=== PATIENT | male | born 1965 | race Caucasian/White ===

== ENCOUNTER 2024-03-22 22:07 | Outpatient (CLI) | payer OTHER, SELFPAY | END 2024-03-22 22:08 | disposition home or self-care (01) | LOC: AMB 03-26 10:38 | PROVIDERS: Visit Provider Student in an Organized Health Care Education/Training Program | DX: M25.572 Pain in left ankle and joints of left foot (principal) | CPT/HCPCS: A0425; A0427 ==

== ENCOUNTER 2024-03-22 22:27 | Emergency (ER) | payer OTHER, SELFPAY ==
[2024-03-22 22:32] VITALS: BP 202/103; PULSE 95; RESP 16; TEMP 36.7; O2SAT 99; BMI 21.0
--- NOTE | 2024-03-22 22:43 | XR_ITS ---
Patient: SHERIN CARRILLO Facility:?[facility] Patient ID:?[id number] Site Patient ID:?[id number]. Site :?[id number] Study:?XRay-Extremity Left ANKLE-03/22/2024 10:58:18 PM Ordering Physician:VERO Final Report: INDICATION: Left ankle pain TECHNIQUE: Ankle radiograph 3 views left COMPARISON: None FINDINGS: Bone: Metallic plate ORIF of the lateral malleolus and screw fixation of the medial malleolus noted. On the lateral view, the plantar aspects of the calcaneus and midfoot are excluded. Joint: The ankle mortise joint and the visualized hindfoot joints are unremarkable in appearance. No significant ankle effusion is seen. Soft tissue: The Kager fat pad and the Achilles` tendon are normal in appearance. No radiopaque foreign bodies are seen. IMPRESSION: 1. No acute osseous injuries or abnormalities are noted. Dictated by Eric Sheth MD @ 03/22/2024 11:01:23 PM Dictated by: Eric Sheth MD @ 03/22/2024 23:01:28 Signed by:Luba Sheth MD @03/22/2024 11:01:28 PM (Electronic Signature)
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
[2024-03-22] MEDS: KETOROLAC 30 MG/ML inj IM (23:00)
[2024-03-22] MEDS: carvediloL 25 MG TABLET PO (23:09)
== END 2024-03-22 23:16 | disposition home or self-care (01) ==
PROVIDERS: Emergency Provider Student in an Organized Health Care Education/Training Program
DX: M25.552 Pain in left hip (principal); G89.29 Other chronic pain
CPT/HCPCS: 73610; 96372; 99282; 99283; A9270; J1885

== ENCOUNTER 2024-03-23 05:38 | Outpatient (CLI) | payer OTHER, SELFPAY | END 2024-03-23 05:39 | disposition home or self-care (01) | LOC: AMB 03-26 11:08 | PROVIDERS: Visit Provider Family Medicine | DX: R07.89 Other chest pain (principal) | CPT/HCPCS: A0425; A0429 ==

== ENCOUNTER 2024-03-23 06:04 | Emergency (ER) | payer OTHER, SELFPAY ==
[2024-03-23 06:25] VITALS: BP 168/100; PULSE 68; RESP 20; TEMP 36.7; O2SAT 97; BMI 23.8
--- NOTE | 2024-03-23 06:50 | XR_ITS ---
Patient: SHERIN CARRILLO Facility:?[facility] Patient ID:?[id number] Site Patient ID:?[id number] Site :?[id number] Study:?XRay-Hip Left -03/23/2024 7:08:05 AM Ordering Physician:BREANA Final Report: Indication: Left hip pain Technique: An AP view of the pelvis was acquired as well as AP and lateral views of the left hip Comparison: None Findings: Bones: Alignment is normal. No fractures or bone lesions. Joint spaces: Unremarkable. Soft tissues: Unremarkable. Impression: Normal plain film examination of the pelvis and of the left hip Dictated by Homer Santos MD @ 03/23/2024 7:13:28 AM Signed by:?Homer Santos MD @03/23/2024 7:13:28 AM (Electronic Signature)
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
[2024-03-23 07:28] VITALS: BP 169/102; PULSE 77; RESP 18; O2SAT 97
[2024-03-23] MEDS: ACETAMINOPHEN 500 MG TABLET 1000 MG PO (07:32)
[2024-03-23] MEDS: KETOROLAC 10 MG TABLET PO (07:33)
== END 2024-03-23 07:43 | disposition home or self-care (01) ==
PROVIDERS: Emergency Provider Family Medicine
DX: M25.552 Pain in left hip (principal); G89.4 Chronic pain syndrome
CPT/HCPCS: 73502; 99283; A9270

== ENCOUNTER 2024-10-03 19:56 | Outpatient (CLI) | payer MEDICARE, SELFPAY ==
--- OUTSIDE RECORDS SUMMARY | 2024-10-08 02:10 | XMS_ITS | Referral Summary ---
Author Organization [facility] Address [address] [place] [address] Phone Care Team Providers Care Steamer Blocker Name Role Phone Unavailable Primary Care Provider Unavailabl e Source Comments [employer] is fully rolled out on [employer] Last update 04/29/09.[facility] Encounters Date Type Department Care Team Description 10/04/2024 Documentation Only Unspecified Department [place] Unknown, Provider 10/04/2024 Documentation Only Unspecified Department [place] Unknown, Provider 10/04/2024 Travel 10/04/2024 1:01 AM TECHNOLOGY LEAD - 10/04/2024 7:45 AM [facility] Emergency [facility] Emergency Department [address] [place] [address] Roxy Mak MD Fall, initial encounter Discharge [...] Mild Pain. 30 tablet 10/04/2024 7:05 AM TECHNOLOGY LEAD 4 Active ibuprofen (MOTRIN;ADVIL) 600 mg oral tablet Take 1 tablet (600 mg) by mouth 4 times daily as needed for Pain. 30 tablet 10/04/2024 7:05 AM TECHNOLOGY LEAD 4 Active cephalexin (KEFLEX) 500 mg oral capsule Take 1 capsule (500 mg) by mouth 3 times daily for 7 days. 21 capsule 4 10/11/20 24 Active oxyCODONE (ROXICODONE) 5 mg oral tablet Take 1 tablet (5 mg) by mouth every 4 hours as needed for Pain. 5 tablet 10/04/2024 7:05 AM TECHNOLOGY LEAD 4 10/07/20 24 cephalexin (KEFLEX) 500 mg oral capsule Take 1 capsule (500 mg) by mouth 3 times daily for 7 days. 21 capsule 4 10/04/20 24 Discontinued Social History Tobacco Use Types Packs/Day Years Used Date Smoking Tobacco: Never Assessed Sex and Gender Information Value Date Recorded Sex Assigned at Not on file Legal Sex Male 8:12 AM TECHNOLOGY LEAD Gender Identity Not on file Sexual Orientation Not on file Last Filed Vital Signs Vital Sign Reading Time Taken Comments Blood Pressure 161/96 10/04/2024 6:26 AM TECHNOLOGY LEAD Pulse 83 10/04/2024 6:26 AM TECHNOLOGY LEAD Temperature 36.9 ??C (98.4 ??F) 10/04/2024 1:07 AM CS T Respiratory Rate 18 10/04/2024 6:26 AM TECHNOLOGY LEAD Oxygen Saturation 94% 10/04/2024 6:26 AM TECHNOLOGY LEAD Inhaled Oxygen Concentration - - Weight - - Height - - Body Mass Index - - Plan of Treatment Not on file Procedures Procedure Name Priority Date/Time Associated Diagnosis Comments EXTERNAL MED REC-IMAGING 10/05/2024 7:09 AM TECHNOLOGY LEAD EXTERNAL MED REC-IMAGING 10/05/2024 7:[address] OUTSIDE READ HEAD/FACIAL BONES Routine 10/04/2024 2:[address] OUTSIDE READ HEAD/FACIAL BONES Routine 10/04/2024 2:11 AM TECHNOLOGY LEAD PC LAB CBC W/DIFF & PLT STAT 10/04/2024 2:01 AM TECHNOLOGY LEAD PC ELECTROLYTES PANEL STAT 10/04/2024 2:01 AM TECHNOLOGY LEAD MAGNESIUM Routine 10/04/2024 2:00 AM TECHNOLOGY LEAD EXTRA TUBE - DARK GREEN Routine 10/04/2024 2:00 AM TECHNOLOGY LEAD EXTRA TUBE - BLUE Routine 10/04/2024 2:0 0 AM TECHNOLOGY LEAD TC LAB BLOOD DRAW BY VENIPUNCTURE Routine 10/04/2024 2:00 AM TECHNOLOGY LEAD from Last 3 Months Results * EXTERNAL MED REC-IMAGING (10/05/2024 7:09 AM TECHNOLOGY LEAD) Only the most recent of2 resultswithin the time period is included. Anatomical Region Laterality Modality Other Narrative 10/05/2024 7:09 AM TECHNOLOGY LEAD Ordered by an unspecified provider. us Provider Unknown RAD CT BODY Final Result * CT OUTSIDE READ HEAD/FACIAL BONES (10/04/2024 2:11 AM TECHNOLOGY LEAD) Only the most recent of2 resultswithin the time period is included. Anatomical Region Laterality Modality Skull Computed Tomogra phy 10/04/2024 3:02 AM TECHNOLOGY LEAD Impressions 10/04/2024 8:12 AM TECHNOLOGY LEAD Impression: 1. No acute intracranial abnormality. 2. [...] Resident: Lety Cuadra Narrative 10/04/2024 8:12 AM TECHNOLOGY LEAD Indication: ??Patient transferred from [facility] due to Trauma. ??No initial report accompanied the patient and/or Dr. ?MAAME MAK requested an interpretation by me. Technique: ??CT scan of the head done on 10/04/2024 without IV contrast. ??3 mm axial and coronal reconstructions reviewed in soft tissue and bone windows, per the local institution's scanning protocols, which may differ from the [facility] trauma protocols. Findings: Chronic encephalomalacia involving the [...] MD - 10/04/2024 Indication: Patient transferred from [facility] due to Trauma.No initial report accompanied the patient and/or Dr. ROXY MAKrequested an interpretation by me. Technique: CT scan of the head done on 10/04/2024 without IV contrast. 3mm axial and coronal reconstructions reviewed in soft tissue and bonewindows, per the local institution's scanning protocols, which may differfrom the [facility] trauma protocols. Findings: Chronic encephalomalacia involving the [...] ED CHEMISTRY LABS(NA,K,CL,CO2,GLU,CREAT,CA-IONIZED,ANION GAP) (10/04/2024 2:01 AM TECHNOLOGY LEAD) Chloride 106 92 - 108 mmol/L [facility] AnGap 10 8 - 16 mmol/L [facility] Glucose 93 70 - 100 mg/dL [facility] ICA, Actual 4.63 4.40 - 5.20 mg/dL [facility] ICA, pH Corrected 4.63 4.40 - 5.20 mg/dL [facility] Creatinine 1.13 0.70 - 1.25 mg/dL [facility] BICARB 28(H) 22 - 26 mEq/L [facility] eGFR (2020 CKD-EPI) 75 >=60 ml/min/1.7 3m2 [facility] Comment: The estimated glomerular filtration rate (eGFR) was calculated using the CKD-EPI 2020 creatinine equation, which does not include race as a factor. This equation is validated in individuals 18 years of age and older, and eGFR is normalized to a body surface area of 1.73m^2. Sodium 144 135 - 148 mmol/L [facility] Potassium 2.8(AA) 3.5 - 5.3 mmol/L [facility] Comment:Critical Result Low Blood 10/04/2024 2:01 AM TECHNOLOGY LEAD 10/04/2024 2:21 AM TECHNOLOGY LEAD Narrative [facility] - 10/04/2024 2:12 PM TECHNOLOGY LEAD Patient Discharged 10/04/2024 07:12:09 TECHNOLOGY LEAD us Roxy Mak MD LABORATORY Edited Result - Final [facility] [address] [address] * CBC WITH PLTS/AUTO DIFF (10/04/2024 2:01 AM TECHNOLOGY LEAD) WBC 9.96 4.00 - 10.00 k/cmm [facility] RBC 4.76 4.60 - 6.00 m/cmm [facility] Hgb 14.7 13.1 - 17.5 g/dL [facility] Hematocrit 42.0 40.0 - 51.0 % [facility] MCV 88.2 80.0 - 100.0 fL [facility] MCH 30.9 25.0 - 32.0 pg [facility] MCHC 35.0 31.0 - 36.0 g/dL [facility] RDW 13.8 11.5 - 14.5 % [facility] Plt 200 150 - 400 k/cmm [facility] MPV 10.0 6.5 - 12.5 fL [facility] Automated Abs Neutrophil 5.05 1.70 - 6.50 k/cmm [facility] Comment:Preliminary ANC, Fin al Result to Follow Abs Immature Granulocyte 0.02 0.00 - 0.09 k/cmm [facility] Comment:The Immature Granulo cyte Absolute count contains metamyelocytes and myelocytes. Abs Neutrophil 5.05 1.70 - 6.50 k/cmm [facility] Abs Lymphocyte 3.78 0.80 - 4.00 k/cmm [facility] Abs Monocyte 0.64 0.20 - 1.00 k/cmm [facility] Abs Eosinophil 0.39 0.00 - 0.60 k/cmm [facility] Abs Basophil 0.08 0.00 - 0.20 k/cmm [facility] Blood 10/04/2024 2:01 AM TECHNOLOGY LEAD 10/04/2024 2:35 AM TECHNOLOGY LEAD us Roxy Mak MD LABORATORY Edited Result - Final Performing Organization Address [facility] de Phone Number [address] [address] * EXTRA TUBE - DARK GREEN (10/04/2024 2:00 AM TECHNOLOGY LEAD) DARK GREEN TUBE Stored [facility] Comment:Dark Green tubes (Li thium Heparin) are stored in the lab for 1 day from the collection date. Blood 10/04/2024 2:00 AM TECHNOLOGY LEAD 10/04/2024 2:20 AM TECHNOLOGY LEAD us Roxy Mak MD LABORATORY Final Result Performing Organization Address [facility] de Phone Number [facility] [address] [address] * EXTRA TUBE - LIGHT GREEN (10/04/2024 2:00 AM TECHNOLOGY LEAD) LIGHT GREEN TUBE Stored [facility] Comment:Green tubes ([place] Heparin) are stored in the lab for 3 days from the collection date. Blood 10/04/2024 2:00 AM TECHNOLOGY LEAD 10/04/2024 2:20 AM TECHNOLOGY LEAD us Roxy Mak MD LABORATORY Final Result Performing Organization Address [facility] de Phone Number [address] [address] * EXTRA TUBE - BLUE (10/04/2024 2:00 AM TECHNOLOGY LEAD) BLUE TUBE [facility] Comment:Blue top(Sodium citr ate) tubes are kept for 3 days from the collection date. Blood 10/04/2024 2:00 AM TECHNOLOGY LEAD 10/04/2024 2:20 AM TECHNOLOGY LEAD us Roxy Mak MD LABORATORY Final Result Performing Organization Address City/[facility]/ZIP Co de Phone Number [facility] [address] [address] * MAGNESIUM (10/04/2024 2:00 AM TECHNOLOGY LEAD) Magnesium 2.3 1.6 - 2.6 mg/dL [facility] Blood 10/04/2024 2:00 AM TECHNOLOGY LEAD 10/04/2024 4:04 AM TECHNOLOGY LEAD Roxy Mak MD LABORATORY Final Result [facility] [address] [address] from Last 3 Months
--- OUTSIDE RECORDS SUMMARY | 2024-10-08 02:10 | XMS_ITS | Clinical Summary ---
Author Organization [facility] Address [address] [address] Phone Care Team Providers Care Lockstitch Waistband Setter Name Role Phone Unavailable Primary Care Provider Unavailabl e Source Comments [employer] is fully rolled out on [employer]. Last update 04/29/[email or web address] Allergies No known active allergies Medications * Be aware that medications may not be up to date as of this document. Always verify current medications with patient. acetaminophen (TYLENOL) 500 mg oral tablet Take 1 tablet (500 mg) by mouth every 4 hours as needed for Mild Pain. 30 tablet 10/04/2024 7:05 AM FELTER TENNIS BALLS 4 Active ibuprofen (MOTRIN;ADVIL) 600 mg oral tablet Take 1 tablet (600 mg) by mouth 4 times daily as needed for Pain. 30 tablet 10/04/2024 7:05 AM FELTER TENNIS BALLS 4 Active cephalexin (KEFLEX) 500 mg oral capsule Take 1 capsule (500 mg) by mouth 3 times daily for 7 days. 21 capsule 4 10/11/20 24 Active oxyCODONE (ROXICODONE) 5 mg oral tablet Take 1 tablet (5 mg) by mouth every 4 hours as needed for Pain. 5 tablet 10/04/2024 7:05 AM FELTER TENNIS BALLS 4 10/07/20 24 cephalexin (KEFLEX) 500 mg oral capsule Take 1 capsule (500 mg) by mouth 3 times daily for 7 days. 21 capsule 4 10/04/20 24 Discontinued Encounters Date Type Department Care Team Description 10/04/2024 1:01 AM FELTER TENNIS BALLS - 10/04/2024 7:45 AM [facility] Emergency [facility] Emergency Department [address] [facility] [address] [place] [address] Chest Pain Coordinator, Roxy R, MD Fall, initial encounter Discharge [...] on file Legal Sex Male 8:12 AM FELTER TENNIS BALLS Gender Identity Not on file Sexual Orientation Not on file Last Filed Vital Signs Vital Sign Reading Time Taken Comments Blood Pressure 161/96 10/04/2024 6:26 AM FELTER TENNIS BALLS Pulse 83 10/04/2024 6:26 AM FELTER TENNIS BALLS Temperature 36.9 ??C (98.4 ??F) 10/04/2024 1:07 AM CS T Respiratory Rate 18 10/04/2024 6:26 AM FELTER TENNIS BALLS Oxygen Saturation 94% 10/04/2024 6:26 AM FELTER TENNIS BALLS Inhaled Oxygen Concentration - - Weight - [...] Comments EXTERNAL MED REC-IMAGING 10/05/2024 7:09 AM FELTER TENNIS BALLS EXTERNAL MED REC-IMAGING 10/05/2024 7:[address] OUTSIDE READ HEAD/FACIAL BONES Routine 10/04/2024 2:[address]S [address] OUTSIDE READ HEAD/FACIAL BONES Routine 10/04/2024 2:11 AM FELTER TENNIS BALLS PC LAB CBC W/DIFF & PLT STAT 10/04/2024 2:01 AM FELTER TENNIS BALLS PC ELECTROLYTES PANEL STAT 10/04/2024 2:01 AM FELTER TENNIS BALLS MAGNESIUM Routine 10/04/2024 2:00 AM FELTER TENNIS BALLS EXTRA TUBE - DARK GREEN Routine 10/04/2024 2:00 AM FELTER TENNIS BALLS EXTRA TUBE - BLUE Routine 10/04/2024 2:0 0 AM FELTER TENNIS BALLS TC LAB BLOOD DRAW BY VENIPUNCTURE Routine 10/04/2024 2:00 AM FELTER TENNIS BALLS from Last 3 Months Results * EXTERNAL MED REC-IMAGING (10/05/2024 7:09 AM FELTER TENNIS BALLS) Only the most recent of2 resultswithin the time period is included. Anatomical Region Laterality Modality Other Narrative 10/05/2024 7:09 AM FELTER TENNIS BALLS Ordered by an unspecified provider. us Provider Unknown RAD CT BODY Final Result * CT OUTSIDE READ HEAD/FACIAL BONES (10/04/2024 2:11 AM FELTER TENNIS BALLS) Only the most recent of2 resultswithin the time period is included. Anatomical Region Laterality Modality Skull Computed Tomogra phy 10/04/2024 3:02 AM FELTER TENNIS BALLS Impressions 10/04/2024 8:12 AM FELTER TENNIS BALLS Impression: 1. No acute intracranial abnormality. 2. [...] Baltazar Resident: Lety Cuadra 10/04/2024 8:12 AM FELTER TENNIS BALLS Indication: ??Patient transferred from [facility] due to Trauma. ??No initial report accompanied the patient and/or Dr. ??ROXY HARMON requested an interpretation by me. Technique: ??CT scan of the head done on 10/04/2024 without IV contrast. ??3 mm axial and coronal reconstructions reviewed in soft tissue and bone windows, per the local institution's scanning protocols, which may differ from the [facility] trauma protocols. Findings: Chronic [...] MD - 10/04/2024 Indication: Patient transferred from [facility] due to Trauma.No initial report accompanied the patient and/or Dr. ROXY HARMONrequested an interpretation by me. Technique: CT scan of the head done on 10/04/2024 without IV contrast. 3mm axial and coronal reconstructions reviewed in soft tissue and bonewindows, per the local institution's scanning protocols, which may differfrom the [facility] trauma protocols. Findings: Chronic [...] ED CHEMISTRY LABS(NA,K,CL,CO2,GLU,CREAT,CA-IONIZED,ANION GAP) (10/04/2024 2:01 AM FELTER TENNIS BALLS) Chloride 106 92 - 108 mmol/L [facility] AnGap 10 8 - 16 mmol/L [facility] Glucose 93 70 - 100 mg/dL [facility] ICA, Actual 4.63 4.40 - 5.20 mg/dL [facility] ICA, pH Corrected 4.63 4.40 - 5.20 mg/dL [facility] Creatinine 1.13 0.70 - 1.25 mg/dL [facility] BICARB 28(H) 22 - 26 mEq/L [facility] eGFR (2020 CKD-EPI) 75 >=60 ml/min/1.7 3m2 [facility] Comment: The estimated glomerular filtration rate (eGFR) was calculated using the CKD-EPI 2020 creatinine equation, which does not include race as a factor. This equation is validated in individuals 18 years of age and older, and eGFR is normalized to a body surface area of 1.73m^2. Sodium 144 135 - 148 mmol/L [facility] Potassium 2.8(AA) 3.5 - 5.3 mmol/L [facility] Comment:Critical Result Low Blood 10/04/2024 2:01 AM FELTER TENNIS BALLS 10/04/2024 2:21 AM FELTER TENNIS [employer]ALLS Narrative [facility] - 10/04/2024 2:12 PM FELTER TENNIS BALLS Patient Discharged 10/04/2024 07:12:09 FELTER TENN[employer]ALLS Roxy Harmon MD LABORATORY Edited Result - Final [facility] [address] [place] [address] * CBC WITH PLTS/AUTO DIFF (10/04/2024 2:01 AM FELTER TENNIS BALLS) Pathologist [facility] WBC 9.96 4.00 - 10.00 k/cmm [facility] RBC 4.76 4.60 - 6.00 m/cmm [facility] Hgb 14.7 13.1 - 17.5 g/dL [facility] Hematocrit 42.0 40.0 - 51.0 % [facility] MCV 88.2 80.0 - 100.0 fL [facility] MCH 30.9 25.0 - 32.0 pg [facility] MCHC 35.0 31.0 - 36.0 g/dL [facility] RDW 13.8 11.5 - 14.5 % [facility] Plt 200 150 - 400 k/cmm [facility] MPV 10.0 6.5 - 12.5 fL [facility] Automated Abs Neutrophil 5.05 1.70 - 6.50 k/cmm [facility] Comment:Preliminary ANC, Fin al Result to Follow Abs Immature Granulocyte 0.02 0.00 - 0.09 k/cmm [facility] Comment:The Immature Granulo cyte Absolute count contains metamyelocytes and myelocytes. Abs Neutrophil 5.05 1.70 - 6.50 k/cmm [facility] Abs Lymphocyte 3.78 0.80 - 4.00 k/cmm [facility] Abs Monocyte 0.64 0.20 - 1.00 k/cmm [facility] Abs Eosinophil 0.39 0.00 - 0.60 k/cmm [facility] Abs Basophil 0.08 0.00 - 0.20 k/cmm [facility] Blood 10/04/2024 2:01 AM F[employer]ENN[employer]ALLS 10/04/2024 2:35 AM F[employer] TENN[employer]ALLS Roxy Harmon MD LABORATORY Edited Result - Final [facility] [address] [place] [address] * EXTRA TUBE - DARK GREEN (10/04/2024 2:00 AM FELTER TENNIS BALLS) DARK GREEN TUBE Stored [facility] Comment:Dark Green tubes (Li thium Heparin) are stored in the lab for 1 day from the collection date. Blood 10/04/2024 2:00 AM FELTER TENNIS [employer]ALLS 10/04/2024 2:20 AM FELTER TENNIS BALLS us Roxy Harmon MD LABORATORY Final Result Performing Organization Address [facility] de Phone Number [facility] [address] [address] * EXTRA TUBE - LIGHT GREEN (10/04/2024 2:00 AM FELTER TENNIS BALL[employer]) LIGHT GREEN TUBE Stored [facility] Comment:Green tubes ([place] Heparin) are stored in the lab for 3 days from the collection date. Blood 10/04/2024 2:00 AM FELTER TENNIS [employer]ALLS 10/04/2024 2:20 AM FEL[employer] TENN[employer]ALLS us Roxy Harmon MD LABORATORY Final Result Performing Organization Address [facility] de Phone Number [facility] [address] [address] * EXTRA TUBE - BLUE (10/04/2024 2:00 AM FELTER TENNIS BALLS) BLUE TUBE [facility] Comment:Blue top(Sodium citr ate) tubes are kept for 3 days from the collection date. Blood 10/04/2024 2:00 AM [employer] 10/04/2024 2:20 AM FELTER TENN[employer] BALLS us Roxy Harmon MD LABORATORY Final Result Performing Organization Address [facility] de Phone Number [facility] [address] [address] * MAGNESIUM (10/04/2024 2:00 AM FELTER TENNIS BALLS) Magnesium 2.3 1.6 - 2.6 mg/dL [facility] Blood 10/04/2024 2:00 AM F[employer] TENN[employer]ALLS 10/04/2024 4:04 AM FELTER TENNIS BALLS us Roxy Harmon MD LABORATORY Final Result [facility] [address] [place] [address] from Last 3 Months
--- OUTSIDE RECORDS SUMMARY | 2024-10-08 02:10 | XMS_ITS | Encounter Summary ---
Author Organization [facility] Address [address] [place] [phone] Phone Care Team Providers Care Systems Lead Name Role Phone Unavailable Primary Care Provider Unavailabl e Encounter Details Date Type Department Care Team (Late st Contact Info) Description 10/04/2024 Documentation Only Unspecified Department [place] Unknown, Provider Social History Tobacco Use Types Packs/Day Years Used Date Smoking Tobacco: Never Assessed Sex and Gender Information Value Date Recorded Sex Assigned at Not on file Legal Sex Male 8:12 AM PIPELINE SUPERINTENDENT DIVISION Gender Identity Not on file Sexual Orientation Not on file documented as of this encounter Plan of Treatment Not on file documented as of this encounter Procedures Procedure Name Priority Date/Time Associated Diagnosis Comments EXTERNAL MED REC-IMAGING 10/05/2024 7:09 AM PIPELINE SUPERINTENDENT DIVISION documented in this encounter Results * EXTERNAL MED REC-IMAGING (10/05/2024 7:09 AM PIPELINE SUPERINTENDENT DIVISION) Anatomical Region Laterality Modality Other Narrative 10/05/2024 7:09 AM PIPELINE SUPERINTENDENT DIVISION Ordered by an unspecified provider. us Provider Unknown RAD CT BODY Final Result documented in this encounter Visit Diagnoses Not on filedocumented in this encounter
--- OUTSIDE RECORDS SUMMARY | 2024-10-08 02:10 | XMS_ITS | Encounter Summary ---
Author Organization [facility] Address [address] [place] [phone] Phone Care Team Providers Care Roof Shingler Name Role Phone Unavailable Primary Care Provider Unavailabl e Encounter Details Date Type Department Care Team (Late st Contact Info) Description 10/04/2024 Documentation Only Unspecified Department [place] Unknown, Provider Social History Tobacco Use Types Packs/Day Years Used Date Smoking Tobacco: Never Assessed Sex and Gender Information Value Date Recorded Sex Assigned at Not on file Legal Sex Male 8:12 AM VEGETABLE PICKER Gender Identity Not on file Sexual Orientation Not on file documented as of this encounter Plan of Treatment Not on file documented as of this encounter Procedures Procedure Name Priority Date/Time Associated Diagnosis Comments EXTERNAL MED REC-IMAGING 10/05/2024 7:09 AM VEGETABLE PICKER documented in this encounter Results * EXTERNAL MED REC-IMAGING (10/05/2024 7:09 AM VEGETABLE PICKER) Anatomical Region Laterality Modality Other Narrative 10/05/2024 7:09 AM VEGETABLE PICKER Ordered by an unspecified provider. us Provider Unknown RAD CT BODY Final Result documented in this encounter Visit Diagnoses Not on filedocumented in this encounter
--- OUTSIDE RECORDS SUMMARY | 2024-10-08 02:10 | XMS_ITS | Encounter Summary ---
Author Organization [facility] Address [address] [place] [phone] Phone Care Team Providers Care Processing Tech Name Role Phone Unavailable Primary Care Provider Unavailabl e Encounter Details Date Type Department Care Team (Latest Contact Info) Description 10/04/2024 Travel Social History Tobacco Use Types Packs/Day Years Used Date Smoking Tobacco: Never Assessed Sex and Gender Information Value Date Recorded Sex Assigned at Not on file Legal Sex Male 8:12 AM SOCIAL WORK ASSOCIATE Gender Identity Not on file Sexual Orientation Not on file documented as of this encounter Plan of Treatment Not on file documented as of this encounter Visit Diagnoses Not on filedocumented in this encounter
--- OUTSIDE RECORDS SUMMARY | 2024-10-08 02:10 | XMS_ITS | Encounter Summary ---
Author Organization [facility] Address [address] [facility] [place] [address] Phone Care Team Providers Care Bankruptcy Attorney Name Role Phone Unavailable Primary Care Provider Unavailabl e Reason for Visit * Reason Comments Eye Trauma Encounter Details Date Type Department Care Team (Late st Contact Info) Description 10/04/2024 1:01 AM ELECTRIC SCOOP OPERATOR - 10/04/2024 7:45 AM ELECTRIC SCOOP OPERATOR Emergency [facility] Emergency Department [address] [facility] [address] [place], [place] [id number] Roxy Mak MD [address] [facility] [address] [place] [address] Fall, initial encounter Discharge Disposition: Discharged to home or self care Social History Tobacco Use Types Packs/Day Years Used Date Smoking Tobacco: Never Assessed Sex and Gender Information Value Date Recorded Sex Assigned at Not on file Legal Sex Male 8:12 AM ELECTRIC SCOOP OPERATOR Gender Identity Not on file Sexual Orientation Not on file documented as of this encounter Last Filed Vital Signs Vital Sign Reading Time Taken Comments Blood Pressure 161/96 10/04/2024 6:26 AM ELECTRIC SCOOP OPERATOR Pulse 83 10/04/2024 6:26 AM ELECTRIC SCOOP OPERATOR Temperature 36.9 ??C (98.4 ??F) 10/04/2024 1:07 AM CS T Respiratory Rate 18 10/04/2024 6:26 AM ELECTRIC SCOOP OPERATOR Oxygen Saturation 94% 10/04/2024 6:26 AM ELECTRIC SCOOP OPERATOR Inhaled Oxygen Concentration - - Weight - - Height - - Body Mass Index - - documented in this encounter Discharge Instructions * Discharge Instructions* Sharif Mayo MD - 10/04/2024 6:35 AM ELECTRIC SCOOP OPERATOR Please take your medications as prescribed. Follow [...] worsen or if you experience new symptoms. TRIC SCOOP OPERATOR TRIC SCOOP OPERATOR documented in this encounter Medications at Time of Discharge acetaminophen (TYLENOL) 500 mg oral tablet Take 1 tablet (500 mg) by mouth every 4 hours as needed for Mild Pain. 30 tablet 10/04/2024 7:05 AM ELECTRIC SCOOP OPERATOR 10/04/2024 ibuprofen (MOTRIN;ADVIL) 600 mg oral tablet Take 1 tablet (600 mg) by mouth 4 times daily as needed for Pain. 30 tablet 10/04/2024 7:05 AM ELECTRIC SCOOP OPERATOR 10/04/2024 cephalexin (KEFLEX) 500 mg oral capsule Take 1 capsule (500 mg) by mouth 3 times daily for 7 days. 21 capsule 10/04/2024 10/11/2024 oxyCODONE (ROXICODONE) 5 mg oral tablet Take 1 tablet (5 mg) by mouth every 4 hours as needed for Pain. 5 tablet 10/04/2024 7:05 AM ELECTRIC SCOOP OPERATOR 10/04/2024 10/07/2024 documented as of this encounter ED Notes * Mary Troncoso - 10/04/2024 1:36 AM CST Pt transferred from [facility]. R wrist fx reduced in [place]. Pos for periorbital fx. Pt received 50 mcg of fentanyl given at 0100. TRIC SCOOP OPERATOR * Sharif Mayo MD - 10/04/2024 1:14 [...] care. We did complete a basic lab work including a chemistry and CBC. We also gave the patient analgesia with 10 of Oxy as well as 40 mill equivalents of potassium to replete his hypokalemia. Magnesium [...] have gone undetected. Please contact me via [employer] staff message if you note any errors requiring clarification. TRIC SCOOP OPERATOR * Lexus Fung RN - 10/04/2024 12:03 AM CST Incoming report from JORDAN June at [facility] Pt was crossing the street. The [...] Oxy, 250 fluids. Will have 18 RAC TRIC SCOOP OPERATOR documented in this encounter Miscellaneous Notes * [...] of services. Signed: Roxy Mak MD, 01:17112/04/2023 TRIC SCOOP OPERATOR documented in this encounter Plan of Treatment Not on file documented as of this encounter Procedures Procedure Name Priority Date/Time Associated Diagnosis Comments CT OUTSIDE READ HEAD/FACIAL BONES Routine 10/04/2024 2:11 AM ELECTRIC SCOOP OPERATOR CT OUTSIDE READ HEAD/FACIAL BONES Routine 10/04/2024 2:11 AM ELECTRIC SCOOP OPERATOR PC ELECTROLYTES PANEL STAT 10/04/2024 2:01 AM ELECTRIC SCOOP OPERATOR PC LAB CBC W/DIFF & PLT STAT 10/04/2024 2:01 AM ELECTRIC SCOOP OPERATOR EXTRA TUBE - DARK GREEN Routine 10/04/2024 2:00 AM ELECTRIC SCOOP OPERATOR TC LAB BLOOD DRAW BY VENIPUNCTURE Routine 10/04/2024 2:00 AM ELECTRIC SCOOP OPERATOR EXTRA TUBE - BLUE Routine 10/04/2024 2:0 0 AM ELECTRIC SCOOP OPERATOR MAGNESIUM Routine 10/04/2024 2:00 AM ELECTRIC SCOOP OPERATOR documented in this encounter Results * CT OUTSIDE READ HEAD/FACIAL BONES (10/04/2024 2:11 AM ELECTRIC SCOOP OPERATOR) Anatomical Region Laterality Modality Skull Computed Tomogra phy 10/04/2024 3:02 AM ELECTRIC SCOOP OPERATOR Impressions 10/04/2024 8:12 AM ELECTRIC SCOOP OPERATOR Impression: 1. No acute intracranial abnormality. 2. [...] Reading Resident: Lety Cuadra 10/04/2024 8:12 AM ELECTRIC SCOOP OPERATOR Indication: ??Patient transferred from [facility] due to Trauma. ??No initial report accompanied the patient and/or Dr. ??ROXY MAK requested an interpretation by me. Technique: ??CT scan of the head done on 10/04/2024 without IV contrast. ??3 mm axial and coronal reconstructions reviewed in soft tissue and bone windows, per the local institution's scanning protocols, which may differ from the [facility] trauma protocols. Findings: Chronic encephalomalacia involving the [...] MD - 10/04/2024 Indication: Patient transferred from [facility] due to Trauma.No initial report accompanied the patient and/or Dr. ROXY MAKrequested an interpretation by me. Technique: CT scan of the head done on 10/04/2024 without IV contrast. 3mm axial and coronal reconstructions reviewed in soft tissue and bonewindows, per the local institution's scanning protocols, which may differfrom the [facility] trauma protocols. Findings: Chronic encephalomalacia involving the [...] Radiologist: Wendy Baltazar Resident: Lety Cuadra us Roxy Mak MD RAD CT NEURO Final Result * CT OUTSIDE READ HEAD/FACIAL BONES (10/04/2024 2:11 AM ELECTRIC SCOOP OPERATOR) Anatomical Region Laterality Modality Skull Computed Tomogra phy 10/04/2024 2:51 AM ELECTRIC SCOOP OPERATOR Impressions 10/04/2024 8:10 AM ELECTRIC SCOOP OPERATOR Impression: Acute depressed fractures of the right [...] Resident: Lety Cuadra Narrative 10/04/2024 8:10 AM ELECTRIC SCOOP OPERATOR Indication: ??Patient transferred from [facility] due to Trauma. ??No initial report accompanied the patient and/or Dr. ?MAAME MAK requested an interpretation by me. Technique: ??CT scan of the facial bone done on 10/04/2024 without IV contrast. ??3 mm axial and coronal reconstructions reviewed in soft tissue and bone windows, per the local institution's scanning protocols, which may differ from the [facility] trauma protocols. Findings: ??Right periorbital swelling. Minimally [...] MD - 10/04/2024 Indication: Patient transferred from [facility] due to Trauma.No initial report accompanied the patient and/or Dr. ROXY MAKrequested an interpretation by me. Technique: CT scan of the facial bone done on 10/04/2024 without IVcontrast. 3 mm axial and coronal reconstructions reviewed in soft tissueand bone windows, per the local institution's scanning protocols, whichmay differ from the [facility] trauma protocols. Findings: Right periorbital swelling. Minimally [...] CBC WITH PLTS/AUTO DIFF (10/04/2024 2:01 AM ELECTRIC SCOOP OPERATOR) WBC 9.96 4.00 - 10.00 k/cmm [facility] LAB RBC 4.76 4.60 - 6.00 m/cmm [facility] Hgb 14.7 13.1 - 17.5 g/dL [facility] Hematocrit 42.0 40.0 - 51.0 % [facility] MCV 88.2 80.0 - 100.0 fL [facility] MCH 30.9 25.0 - 32.0 pg [facility] MCHC 35.0 31.0 - 36.0 g/dL [facility] RDW 13.8 11.5 - 14.5 % [facility] Plt 200 150 - 400 k/cmm [facility] MPV 10.0 6.5 - 12.5 fL [facility] Automated Abs Neutrophil 5.05 1.70 - 6.50 k/cmm [facility] Comment:Preliminary ANC, Fin al Result to Follow Abs Immature Granulocyte 0.02 0.00 - 0.09 k/cmm [facility] Comment:The Immature Granulo cyte Absolute count contains metamyelocytes and myelocytes. Abs Neutrophil 5.05 1.70 - 6.50 k/cmm [facility] Abs Lymphocyte 3.78 0.80 - 4.00 k/cmm [facility] Abs Monocyte 0.64 0.20 - 1.00 k/cmm [facility] Abs Eosinophil 0.39 0.00 - 0.60 k/cmm [facility] Abs Basophil 0.08 0.00 - 0.20 k/cmm [facility] Blood 10/04/2024 2:01 AM ELECTRIC SCOOP OPERATOR 10/04/2024 2:35 AM ELECTRIC SCOOP OPERATOR Roxy Mak MD LABORATORY Edited Result - Final [facility] [address] [place] [address] * (ABNORMAL) ED CHEMISTRY LABS(NA,K,CL,CO2,GLU,CREAT,CA-IONIZED,ANION GAP) (10/04/2024 2:01 AM ELECTRIC SCOOP OPERATOR) Chloride 106 92 - 108 mmol/L [facility] AnGap 10 8 - 16 mmol/L [facility] Glucose 93 70 - 100 mg/dL [facility] ICA, Actual 4.63 4.40 - 5.20 mg/dL [facility] ICA, pH Corrected 4.63 4.40 - 5.20 mg/dL [facility] Creatinine 1.13 0.70 - 1.25 mg/dL [facility] BICARB 28(H) 22 - 26 mEq/L [facility] eGFR (2020 CKD-EPI) 75 >=60 ml/min/1.7 3m2 [facility] Comment: The estimated glomerular filtration rate (eGFR) was calculated using the CKD-EPI 2020 creatinine equation, which does not include race as a factor. This equation is validated in individuals 18 years of age and older, and eGFR is normalized to a body surface area of 1.73m^2. Sodium 144 135 - 148 mmol/L [facility] Potassium 2.8(AA) 3.5 - 5.3 mmol/L [facility] Comment:Critical Result Low Blood 10/04/2024 2:01 AM ELECTRIC SCOOP OPERATOR 10/04/2024 2:21 AM ELECTRIC SCOOP OPERATOR Narrative [facility] - 10/04/2024 2:12 PM ELECTRIC SCOOP OPERATOR Patient Discharged 10/04/2024 07:12:09 ELECTRIC SCOOP OPERATOR us Roxy Mak MD LABORATORY Edited Result - Final [facility] [address] [address] * MAGNESIUM (10/04/2024 2:00 AM ELECTRIC SCOOP OPERATOR) Magnesium 2.3 1.6 - 2.6 mg/dL [facility] Blood 10/04/2024 2:00 AM ELECTRIC SCOOP OPERATOR 10/04/2024 4:04 AM ELECTRIC SCOOP OPERATOR us Roxy Mak MD LABORATORY Final Result Performing Organization Address [facility] Co de Phone Number [address] [phone] * EXTRA TUBE - DARK GREEN (10/04/2024 2:00 AM ELECTRIC SCOOP OPERATOR) DARK GREEN TUBE Stored [facility] Comment:Dark Green tubes (Li thium Heparin) are stored in the lab for 1 day from the collection date. Blood 10/04/2024 2:00 AM ELECTRIC SCOOP OPERATOR 10/04/2024 2:20 AM ELECTRIC SCOOP OPERATOR us Roxy Mak MD LABORATORY Final Result Performing Organization Address [facility] de Phone Number [address] [address] * EXTRA TUBE - BLUE (10/04/2024 2:00 AM ELECTRIC SCOOP OPERATOR) BLUE TUBE [facility] Comment:Blue top(Sodium citr ate) tubes are kept for 3 days from the collection date. Blood 10/04/2024 2:00 AM ELECTRIC SCOOP OPERATOR 10/04/2024 2:20 AM ELECTRIC SCOOP OPERATOR us Roxy Mak MD LABORATORY Final Result Performing Organization Address [facility] de Phone Number [address] [address] * EXTRA TUBE - LIGHT GREEN (10/04/2024 2:00 AM ELECTRIC SCOOP OPERATOR) LIGHT GREEN TUBE Stored [facility] Comment:Green tubes ([place] Heparin) are stored in the lab for 3 days from the collection date. Blood 10/04/2024 2:00 AM ELECTRIC SCOOP OPERATOR 10/04/2024 2:20 AM ELECTRIC SCOOP OPERATOR us Roxy Mak MD LABORATORY Final Result Performing Organization Address [facility] Co de Phone Number [address] [phone] documented in this encounter Visit Diagnoses Diagnosis [...] 10/04/24 at 0150 Given 10/04/2024 1:52 AM ELECTRIC SCOOP OPERATOR 10 mg oxyCODONE (ROXICODONE) tablet 10 mg 10 mg, Oral, ONE TIME, 1 dose, On 10/04/24 at 0445 Given 10/04/2024 4:47 AM ELECTRIC SCOOP OPERATOR 10 mg potassium chloride (K-ALISSA) powder 40 mEq 40 mEq, Oral, ONE TIME, 1 dose, On 10/04/24 at 0250 Given 10/04/2024 2:52 AM ELECTRIC SCOOP OPERATOR 40 mEq documented in this encounter Active and Recently Administered Medications Times are shown in ELECTRIC SCOOP OPERATOR. Scheduled Medication Order 10/02/2024 10/03/2024 10/04/2024 oxyCODONE [...]
== END 2024-10-03 19:57 | disposition home or self-care (01) ==
LOC: AMB 10-08 02:07
PROVIDERS: Visit Provider Emergency Medicine
DX: S09.90XA Unspecified injury of head, initial encounter (principal); S69.91XA Unspecified injury of right wrist, hand and finger(s), initial encounter; W01.0XXA Fall on same level from slipping, tripping and stumbling without subsequent striking against object, initial encounter; Y93.89 Activity, other specified; Y92.414 Local residential or business street as the place of occurrence of the external cause
CPT/HCPCS: A0425; A0427

== ENCOUNTER 2024-10-03 20:26 | Emergency (ER) | payer MEDICARE, SELFPAY ==
[2024-10-03] VITALS (25 sets, daily range): BP systolic 121–185; BP diastolic 84–105; PULSE 76–102; RESP 18; TEMP 36.1; O2SAT 96–100; BMI 19.9
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
--- NOTE | 2024-10-03 20:31 | ED.GENADULT ---
HPI - General Adult General Time Seen by Provider: 20:30 <Tiera Cisneros MD - Last Filed: 10/03/24 23:51> Date Seen: 10/03/24 <Tiera Cisneros MD - Last Filed: 10/03/24 23:51> Chief complaint: Fall/Minor Trauma <Tiera Cisneros MD - Last Filed: 10/03/24 23:51> Stated complaint: Head trauma <Tiera Cisneros MD - Last Filed: 10/03/24 23:51> Time Seen by Provider: 10/03/24 20:30 <Tiera Cisneros MD - Last Filed: 10/03/24 23:51> Source: patient, EMS and RN notes reviewed <Tiera Cisneros MD - Last Filed: 10/03/24 23:51> Mode of arrival: EMS <Tiera Cisneros MD - Last Filed: 10/03/24 23:51> Limitations: no limitations <Tiera Cisneros MD - Last Filed: 10/03/24 23:51> History of Present Illness HPI narrative: This 59-year-old male was brought in by [facility] after a fall in the intersection. Patient states he was trying to cross the intersection quickly in town, has some right residual leg issues from a prior hemorrhagic stroke. The light was changing, he was trying to hurry to get out of the way and his leg caught and he fell forward. He braced with an outstretched hand, has deformed right wrist now. He denies any numbness tingling in the fingers. He did hit his right face above the eye along the eyebrow area causing a laceration, initially blood but has stopped. He states his right wrist is painful. He denies any headache, no visual changes. There is definite pain along the site of the lacerations in where he hit his face in the right eyebrow area above the right eye. He absolutely has no headache, feels like he is at his baseline. There was no loss of consciousness. He denies any neck or back pain. They did give him 25 mcg of fentanyl in route but then subsequently found the patient to be on Suboxone. Nothing else is injured, no difficulty breathing, no chest pain, no abdominal pain, no pain in his legs, no left arm pain or issues. He feels like his jaws opening and closing normally, no nasal pain, no pain in his cheeks. Patient tells me he is on Suboxone, used to be on Percocet and was addicted. Instead of buying Percocet off the street and getting inadvertent exposure to mixed drugs and risking his life, he went on Suboxone. He is post be on a cholesterol medicine in on probably a blood pressure medicine but he has not taken them. Nursing staff did look up his tetanus, last given 05/08/2017, thus up-to-date. <Tiera Cisneros MD - Last Filed: 10/03/24 23:51> Related Data Home medications: Home Medications ?Medication ?Instructions ?Recorded ?Confirmed atorvastatin 20 mg tablet 20 mg PO DAILY 03/23/24 05/21/24 carvedilol 25 mg tablet 25 mg PO BID 03/23/24 05/21/24 dextroamphetamine-amphetamine 20 1 tab PO BID 03/23/24 05/21/24 mg tablet lisinopril 10 mg tablet 10 mg PO DAILY 03/23/24 05/21/24 mirtazapine 30 mg tablet 30 mg PO QPM 03/23/24 05/21/24 modafinil 200 mg tablet 200 mg PO DAILY 03/23/24 05/21/24 omeprazole 20 mg capsule,delayed 20 mg PO DAILY 03/23/24 05/21/24 release paroxetine HCl 40 mg tablet 40 mg PO DAILY 03/23/24 05/21/24 tizanidine 2 mg tablet 2 mg PO 3XD 03/23/24 05/21/24 Previous Rx's ?Medication ?Instructions ?Recorded acetaminophen 650 mg 1,300 mg (2 x 650 mg) PO Q8H PRN 03/23/24 tablet,extended release (Arthritis #150 tabs Pain Relief (acetaminophen) ER) ibuprofen 600 mg tablet 600 mg PO BID PRN #20 tabs 03/23/24 <Tiera Cisneros MD - Last Filed: 10/03/24 23:51> Allergies/adverse reactions: Allergies Allergy/AdvReac Type Severity Reaction Status Date / Time indomethacin AdvReac Verified 05/21/24 14:44 <Tiera Cisneros MD - Last Filed: 10/03/24 23:51> Review of Systems Status of ROS: Reports: 6 or more systems reviewed and unremarkable except as noted in History and below <Tiera Cisneros MD - Last Filed: 10/03/24 23:51> [facility] Social History: Social History Smoking Status: Current every day smoker What tobacco products do you use: cigarettes Second hand tobacco smoke exposure: Yes How often do you have a drink containing alcohol: never AUDIT-C Alcohol total score: 0 Non-prescribed substance use: denies use <Tiera Cisneros MD - Last Filed: 10/03/24 23:51> Exam Const: Vital Signs, click to edit/add: Vital Signs - 24 hr 10/03/24 20:31 10/03/24 20:54 10/03/24 21:00 Temperature 97.0 F L Pulse Rate 97 91 Pulse Rate [Left P ulse Oximeter] 102 H Respiratory Rate 18 Blood Pressure Blood Pressure [Le ft Upper Arm] 185/103 H Pulse Oximetry 96 96 96 Oxygen Delivery Me thod Room Air 10/03/24 21:15 10/03/24 21:30 10/03/24 21:31 Temperature Pulse Rate 91 87 86 Pulse Rate [Left P ulse Oximeter] Respiratory Rate Blood Pressure 161/104 H Blood Pressure [Le ft Upper Arm] Pulse Oximetry 97 96 99 Oxygen Delivery Me thod 10/03/24 21:34 10/03/24 21:36 10/03/24 21:41 Temperature Pulse Rate 92 90 89 Pulse Rate [Left P ulse Oximeter] Respiratory Rate Blood Pressure 160/104 H 143/92 H 138/90 H Blood Pressure [Le ft Upper Arm] Pulse Oximetry 100 96 98 Oxygen Delivery Me thod 10/03/24 21:45 10/03/24 21:47 10/03/24 21:51 Temperature Pulse Rate 82 83 82 Pulse Rate [Left P ulse Oximeter] Respiratory Rate Blood Pressure 121/84 149/101 H Blood Pressure [Le ft Upper Arm] Pulse Oximetry 100 99 98 Oxygen Delivery Me thod 10/03/24 22:00 10/03/24 22:01 10/03/24 22:13 Temperature Pulse Rate 79 78 Pulse Rate [Left P ulse Oximeter] Respiratory Rate Blood Pressure 161/98 H Blood Pressure [Le ft Upper Arm] Pulse Oximetry 100 97 97 Oxygen Delivery Me thod 10/03/24 22:13 10/03/24 22:15 10/03/24 22:17 Temperature Pulse Rate 83 81 Pulse Rate [Left P ulse Oximeter] Respiratory Rate Blood Pressure 168/103 H Blood Pressure [Le ft Upper Arm] Pulse Oximetry 97 99 Oxygen Delivery Me thod Room Air 10/03/24 22:33 10/03/24 22:47 10/03/24 23:01 Temperature Pulse Rate 85 Pulse Rate [Left P ulse Oximeter] Respiratory Rate Blood Pressure 161/105 H 157/103 H Blood Pressure [Le ft Upper Arm] Pulse Oximetry 98 Oxygen Delivery Me thod 10/03/24 23:17 10/03/24 23:32 Temperature Pulse Rate Pulse Rate [Left P ulse Oximeter] Respiratory Rate Blood Pressure 151/95 H 153/105 H Blood Pressure [Le ft Upper Arm] Pulse Oximetry Oxygen Delivery Me thod On arrival patient is a 59-year-old male brought in by EMS. He is alert, interactive, no apparent distress. He has a bandage over his right forehead. There is obvious right wrist deformity. Pupils are equal round reactive, sclera clear. Scalp is atraumatic. He can open and close his mouth, notes no jaw tenderness, oropharynx without any traumatic change. Nose is normal, no tenderness, cheeks are nontender, no traumatic change. The bandage is removed from his forehead and I see 2 wounds with lacerations, 1 just above the eyebrow in the middle portion, when that involves the lateral portion of the eyebrow itself, this 1 appears stellate. They are not actively bleeding. No midline tenderness of his neck, no neck masses. Lungs are clear, good air entry, wheezing crackles. CV regular rate and rhythm, no murmur. No chest wall tenderness, tenderness over his clavicles or shoulders. Left arm is normal, right wrist has swelling and deformity, he still has good peripheral pulses and neuro vasculature is intact distally. Abdomen is soft, nontender, nondistended. He has no lower extremity injuries. <Tiera R Suchomel-Santiago, MD - Last Filed: 10/03/24 23:51> Vital Signs, click to edit/add: Vital Signs - 24 hr 10/03/24 20:31 10/03/24 20:54 10/03/24 21:00 Temperature 97.0 F L Pulse Rate 97 91 Pulse Rate [Left P ulse Oximeter] 102 H Respiratory Rate 18 Blood Pressure Blood Pressure [Le ft Upper Arm] 185/103 H Pulse Oximetry 96 96 96 Oxygen Delivery Me thod Room Air 10/03/24 21:15 10/03/24 21:30 10/03/24 21:31 Temperature Pulse Rate 91 87 86 Pulse Rate [Left P ulse Oximeter] Respiratory Rate Blood Pressure 161/104 H Blood Pressure [Le ft Upper Arm] Pulse Oximetry 97 96 99 Oxygen Delivery Me thod 10/03/24 21:34 10/03/24 21:36 10/03/24 21:41 Temperature Pulse Rate 92 90 89 Pulse Rate [Left P ulse Oximeter] Respiratory Rate Blood Pressure 160/104 H 143/92 H 138/90 H Blood Pressure [Le ft Upper Arm] Pulse Oximetry 100 96 98 Oxygen Delivery Me thod 10/03/24 21:45 10/03/24 21:47 10/03/24 21:51 Temperature Pulse Rate 82 83 82 Pulse Rate [Left P ulse Oximeter] Respiratory Rate Blood Pressure 121/84 149/101 H Blood Pressure [Le ft Upper Arm] Pulse Oximetry 100 99 98 Oxygen Delivery Me thod 10/03/24 22:00 10/03/24 22:01 10/03/24 22:13 Temperature Pulse Rate 79 78 Pulse Rate [Left P ulse Oximeter] Respiratory Rate Blood Pressure 161/98 H Blood Pressure [Le ft Upper Arm] Pulse Oximetry 100 97 97 Oxygen Delivery Me thod 10/03/24 22:13 10/03/24 22:15 10/03/24 22:17 Temperature Pulse Rate 83 81 Pulse Rate [Left P ulse Oximeter] Respiratory Rate Blood Pressure 168/103 H Blood Pressure [Le ft Upper Arm] Pulse Oximetry 97 99 Oxygen Delivery Me thod Room Air 10/03/24 22:33 10/03/24 22:47 10/03/24 23:01 Temperature Pulse Rate 85 Pulse Rate [Left P ulse Oximeter] Respiratory Rate Blood Pressure 161/105 H 157/103 H Blood Pressure [Le ft Upper Arm] Pulse Oximetry 98 Oxygen Delivery Me thod 10/03/24 23:17 10/03/24 23:32 Temperature Pulse Rate Pulse Rate [Left P ulse Oximeter] Respiratory Rate Blood Pressure 151/95 H 153/105 H Blood Pressure [Le ft Upper Arm] Pulse Oximetry Oxygen Delivery Me thod <Tiera Evans MD - Last Filed: 10/03/24 21:46> Documenting provider has reviewed patient's vital signs: yes <Tiera Cisnreos MD - Last Filed: 10/03/24 23:51> Course Course ED Course: I provided procedural sedation for this patient for his reduction. Patient denies any history of reaction anesthesia. Has artist consultant indomethacin. Patient does smoke a pack cigarettes per day. Denies history of COPD or obstructive sleep apnea. Does have a history of narcolepsy. We discussed risks and benefits of the procedure including the need for intubation. Patient wished to proceed. A total of 100 mL of propofol was used for adequate sedation. Patient woke up without any complications. <Tiera Evans MD - Last Filed: 10/03/24 21:46> Reevaluation(s) Time of Reevaluation #1: 22:10 <Tiera Cisneros MD - Last Filed: 10/03/24 23:51> Reevaluation #1: Patient is having some throbbing in his wrist area, he can still feel is fingers, is also complaining of pain in that supraorbital ridge, maybe worsening. I did discuss with him that I do think we should consider doing the head CT and facial imaging. I would feel much more comfortable knowing that we had ruled out any underlying significant traumatic injury. He does concede and agree to do the imaging. We also discussed pain management. He is wondering if he can have some pain medicines. Reviewed with him that I had planned on talking to him about that. My thought is to have him hold his Suboxone, will send him with oxycodone and then he can take Tylenol 1000 mg 3 times a day. When he is able to he can transition to just the Tylenol and go back on his Suboxone. I do think he is going to need increased pain management and thus will give him some oxycodone and Tylenol now. <Tiera Cisneros MD - Last Filed: 10/03/24 23:51> Time of Reevaluation #2: 23:44 <Tiera Cisneros MD - Last Filed: 10/03/24 23:51> Reevaluation #2: I have updated patient regarding his facial fractures on the CT. He has no evidence of any visual entrapment, vision is normal. He understands that he will be transfer to [facility] [place] for definitive care as we do not have that specialty care here. <Tiera Cisneros MD - Last Filed: 10/03/24 23:51> Consultations Consultation #1: Have reviewed with Orthopedics. They are happy with the post reduction. He will follow up outpatient with them in clinic this week. <Tiera Cisneros MD - Last Filed: 10/03/24 23:51> Time: 22:20 <Tiera Cisneros MD - Last Filed: 10/03/24 23:51> Consultation #2: Patient's facial CT images are showing periorbital fractures, fracture of zygomatic arch. I have contacted [facility] [place], spoke with Dr. Harmon. Patient will be transferred to [facility] [place] for definitive care of his injuries. <Tiera Cisneros MD - Last Filed: 10/03/24 23:51> Time: 23:34 <Tiera Cisneros MD - Last Filed: 10/03/24 23:51> Vital Signs Vital signs: Initial Vital Signs Temperature 97.0 F L 10/03/24 20:31 Temperature Source Temporal Artery Scan 10/03/24 20:31 Pulse Rate 102 H 10/03/24 20:31 Pulse Rhythm Regular 10/03/24 20:31 Respiratory Rate 18 10/03/24 20:31 Blood Pressure 185/103 H 10/03/24 20:31 Blood Pressure Mean 130 H 10/03/24 20:31 Blood Pressure Position Semi-Fowlers 10/03/24 20:31 Pulse Oximetry 96 10/03/24 20:31 Oxygen Delivery Method Room Air 10/03/24 20:31 Vital Signs Temperature 97.0 F L 10/03/24 20:31 Pulse Rate 102 H 10/03/24 20:31 Respiratory Rate 18 10/03/24 20:31 Blood Pressure 185/103 H 10/03/24 20:31 Pulse Oximetry 96 10/03/24 20:31 Oxygen Delivery Method Room Air 10/03/24 20:31 Temperature 97.0 F L 10/03/24 20:31 Pulse Rate 85 10/03/24 22:33 Respiratory Rate 18 10/03/24 20:31 Blood Pressure 153/105 H 10/03/24 23:32 Pulse Oximetry 98 10/03/24 22:33 Oxygen Delivery Method Room Air 10/03/24 22:13 <Tiera Cisneros MD - Last Filed: 10/03/24 23:51> Initial Vital Signs Temperature 97.0 F L 10/03/24 20:31 Temperature Source Temporal Artery Scan 10/03/24 20:31 Pulse Rate 102 H 10/03/24 20:31 Pulse Rhythm Regular 10/03/24 20:31 Respiratory Rate 18 10/03/24 20:31 Blood Pressure 185/103 H 10/03/24 20:31 Blood Pressure Mean 130 H 10/03/24 20:31 Blood Pressure Position Semi-Fowlers 10/03/24 20:31 Pulse Oximetry 96 10/03/24 20:31 Oxygen Delivery Method Room Air 10/03/24 20:31 Vital Signs Temperature 97.0 F L 10/03/24 20:31 Pulse Rate 102 H 10/03/24 20:31 Respiratory Rate 18 10/03/24 20:31 Blood Pressure 185/103 H 10/03/24 20:31 Pulse Oximetry 96 10/03/24 20:31 Oxygen Delivery Method Room Air 10/03/24 20:31 Temperature 97.0 F L 10/03/24 20:31 Pulse Rate 85 10/03/24 22:33 Respiratory Rate 18 10/03/24 20:31 Blood Pressure 153/105 H 10/03/24 23:32 Pulse Oximetry 98 10/03/24 22:33 Oxygen Delivery Method Room Air 10/03/24 22:13 <Tiera Evans MD - Last Filed: 10/03/24 21:46> Medications Administered Medications: Discontinued Medications Generic Name Dose Route Start Last Admin Trade Name Freq PRN Reason Stop Dose Admin Acetaminophen 1,000 mg 10/03/24 22:12 10/03/24 22:34 Acetaminophen 500 Mg Tablet PO 10/03/24 22:13 1,000 mg ONCE ONE Administration Sodium Chloride 250 mls @ 250 mls/hr 10/03/24 21:50 10/03/24 22:50 0.9 % Sodium Chloride 250 Ml IV 10/03/24 22:49 Infused .Q1H ONE Infusion Oxycodone HCl 5 mg 10/03/24 22:12 10/03/24 22:35 Oxycodone 5 Mg Tablet PO 10/03/24 22:13 5 mg ONCE ONE Administration Propofol 200 mg 10/03/24 21:20 10/03/24 21:48 Propofol 10 Mg/Ml Inj IVP 10/03/24 21:21 100 mg ONCE ONE Administration <Tiera Cisneros MD - Last Filed: 10/03/24 23:51> Discontinued Medications Generic Name Dose Route Start Last Admin Trade Name Kamaljitq PRN Reason Stop Dose Admin Acetaminophen 1,000 mg 10/03/24 22:12 10/03/24 22:34 Acetaminophen 500 Mg Tablet PO 10/03/24 22:13 1,000 mg ONCE ONE Administration Sodium Chloride 250 mls @ 250 mls/hr 10/03/24 21:50 10/03/24 22:50 0.9 % Sodium Chloride 250 Ml IV 10/03/24 22:49 Infused .Q1H ONE Infusion Oxycodone HCl 5 mg 10/03/24 22:12 10/03/24 22:35 Oxycodone 5 Mg Tablet PO 10/03/24 22:13 5 mg ONCE ONE Administration Propofol 200 mg 10/03/24 21:20 10/03/24 21:48 Propofol 10 Mg/Ml Inj IVP 10/03/24 21:21 100 mg ONCE ONE Administration <Tiera Evans MD - Last Filed: 10/03/24 21:46> Medical Decision Making MDM Narrative Medical decision making narrative: This patient is had a fall, he denies any headache, no loss of consciousness he is on baseline Suboxone but no other mood altering substances. We have discussed head imaging, he declines at this point. I will plan on cleaning and repairing his lacerations on his face. We will be getting x-rays of his right wrist to evaluate, there is most certainly a fracture here and will likely require reduction. <Tiera Cisneros MD - Last Filed: 10/03/24 23:51> Imaging Data XR right wrist: Attestation: I have reviewed the pertinent imaging results. <Tiera Cisneros MD - Last Filed: 10/03/24 23:51> My impression: Comminuted distal radius fracture with dorsal angulation a my preliminary review. This will require reduction. <Tiera Cisneros MD - Last Filed: 10/03/24 23:51> Radiologist's impression: Patient: SHERIN CARRILLO Facility:?[facility] Patient ID:?[id number] Site Patient ID:?[id number]. Site :?1965 Study:?XRay-Extremity Right WRIST 3 VIEWS-10/03/2024 9:03:16 PM Ordering Physician:Lesli Mott Final Report: Indication: Trauma. Technique: Right wrist, 3 views. Comparison: None. Findings/Impression: Bones: Acute displaced comminuted fracture of the distal radius with dorsal angulation. Associated distal ulnar/ulnar styloid fracture. Joint spaces: Associated joint effusion. Soft tissues: Associated soft tissue swelling. Dictated by Theodore Hodges MD @ 10/03/2024 9:11:51 PM (Electronic Signature) <Tiera Cisneros MD - Last Filed: 10/03/24 23:51> XR R wrist post reduction: Attestation: I have reviewed the pertinent imaging results. <Tiera Cisneros MD - Last Filed: 10/03/24 23:51> My impression: Images revisualized with portable x-ray during the reduction. There is improved positioning of the radius on my preliminary review. <Tiera Cisneros MD - Last Filed: 10/03/24 23:51> Radiologist's impression: Patient: SHERIN CARRILLO Facility:?[facility] Patient ID:?[id number] Site Patient ID:?[id number]. Site :?1965 Study:?XRay-Extremity Right WRIST 2 VIEWS-10/03/2024 9:54:43 PM Ordering Physician:Lesli Mott Final Report: Indication: Trauma. Technique: Right wrist, 2 views. Comparison: October 03, 2024. Findings/Impression: Redemonstration of previously described distal radius fracture with improved alignment. Redemonstration of previously described distal ulnar/ulnar styloid fracture. Dictated by Theodore Hodges MD @ 10/03/2024 10:06:18 PM (Electronic Signature) <Tiera Cisneros MD - Last Filed: 10/03/24 23:51> CT scan - head: Attestation: I have reviewed the pertinent imaging results. <Tiera Cisneros MD - Last Filed: 10/03/24 23:51> Radiologist's impression: Patient: SHERIN CARRILLO Facility:?[facility] Patient ID:?[id number] Site Patient ID:?[id number]. Site :?1965 Study:?CT-Head W/O-10/03/2024 10:43:12 PM Ordering Physician:Lesli Mott Final Report: INDICATION: Trauma, fall. TECHNIQUE: CT head without contrast. COMPARISON: None. FINDINGS: CSF spaces: Within normal limits for age. 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 The price-white differentiation is maintained elsewhere. No sign of mass, hemorrhage, or midline shift. Skull base and calvarium: Please refer to separate concurrent CT face regarding facial findings. Mastoid air cells are clear. No acute calvarial fracture. IMPRESSION: 1. No acute intracranial abnormality or acute calvarial fracture. 2. Multiple chronic infarcts in the left cerebral hemisphere. Please note that all CT scans at this facility use dose modulation, iterative reconstruction, and/or weight-based dosing when appropriate to reduce radiation dose to as low as reasonably achievable. Dictated by Carson Joiner MD @ 10/03/2024 10:55:12 PM (Electronic Signature) <Tiera Cisneros MD - Last Filed: 10/03/24 23:51> CT- Other: Attestation: I have reviewed the pertinent imaging results. <Tiera Cisneros MD - Last Filed: 10/03/24 23:51> Radiologist's impression: Patient: SHERIN CARRILLO Facility:?[facility] Patient ID:?[id number] Site Patient ID:?[id number]. Site :?1965 Study:?CT-Facial W/O-10/03/2024 10:43:52 PM Ordering Physician:Lesli Mott Final Report: INDICATION: Trauma, fall. TECHNIQUE: CT maxillofacial without contrast. COMPARISON: None. FINDINGS: Facial bones: Mildly comminuted mildly displaced fracture of the right maxillary sinus anterior wall also involving the right orbital floor. Mildly comminuted minimally displaced fracture of the right maxillary sinus posterior wall. Nondisplaced fracture of the right zygomatic arch. Orbits and globes: Right periorbital soft tissue swelling. Globes are intact. Trace hemorrhage and emphysema along the extraconal right orbital floor. Retrobulbar soft tissues are unremarkable. Sinuses: Small air-fluid level in the right maxillary sinus. Soft tissues: Edentulous. IMPRESSION: 1. Right maxillary sinus anterior and posterior wall fractures including involvement of the right orbital floor. 2. Nondisplaced right zygomatic arch fracture. 3. Right periorbital soft tissue swelling and trace hemorrhage and emphysema along the extraconal right orbital floor. Please note that all CT scans at this facility use dose modulation, iterative reconstruction, and/or weight-based dosing when appropriate to reduce radiation dose to as low as reasonably achievable. Dictated by Carson Joiner MD @ 10/03/2024 11:05:41 PM (Electronic Signature) <Tiera Cisneros MD - Last Filed: 10/03/24 23:51> Discharge Plan Discharge Clinical Impression: Fall Qualifiers: Encounter type: initial encounter Qualified Code(s): W19.XXXA - Unspecified fall, initial encounter Face lacerations Qualifiers: Encounter type: initial encounter Qualified Code(s): S01.81XA - Laceration without foreign body of other part of head, initial encounter Fracture of right wrist Qualifiers: Encounter type: initial encounter Fracture type: closed Qualified Code(s): S62.101A - Fracture of unspecified carpal bone, right wrist, initial encounter for closed fracture Fracture of maxillary sinus Qualifiers: Encounter type: initial encounter Fracture type: closed Qualified Code(s): S02.401A - Maxillary fracture, unspecified side, initial encounter for closed fracture Closed fracture of zygomatic arch Qualifiers: Encounter type: initial encounter Laterality: right Qualified Code(s): S02.40EA - Zygomatic fracture, right side, initial encounter for closed fracture <Tiera Cisneros MD - Last Filed: 10/03/24 23:51> Patient Disposition: [facility] <Tiera Cisneros MD - Last Filed: 10/03/24 23:51> Discharge Location: [facility] <Tiera Cisneros MD - Last Filed: 10/03/24 23:51> Condition: Stable <Tiera Cisneros MD - Last Filed: 10/03/24 23:51> Instructions: Wrist Fracture in Adults (ED), Facial Laceration (ED) <Tiera Cisneros MD - Last Filed: 10/03/24 23:51> Prescriptions: No Action carvedilol 25 mg tablet 25 mg PO BID atorvastatin 20 mg tablet 20 mg PO DAILY tizanidine 2 mg tablet 2 mg PO 3XD modafinil 200 mg tablet 200 mg PO DAILY mirtazapine 30 mg tablet 30 mg PO QPM dextroamphetamine-amphetamine 20 mg tablet 1 tab PO BID lisinopril 10 mg tablet 10 mg PO DAILY omeprazole 20 mg capsule,delayed release(DR/EC) 20 mg PO DAILY paroxetine HCl 40 mg tablet 40 mg PO DAILY acetaminophen [Arthritis Pain Relief (acetam)] 650 mg tablet extended release 1,300 mg PO Q8H PRNQty: 150 1RF ibuprofen 600 mg tablet 600 mg PO BID PRNQty: 20 0RF <Tiera Cisneros MD - Last Filed: 10/03/24 23:51> Follow Up/Referrals: Provider,Not a Local [Primary Care Provider] - <Tiera Cisneros MD - Last Filed: 10/03/24 23:51> Stand Alone Forms: [facility] Info Instructions <Tiera Cisneros MD - Last Filed: 10/03/24 23:51> Procedures Laceration Laceration 1: Pre procedure diagnosis: medial above right eyebrow laceration <Tiera Cisneros MD - Last Filed: 10/03/24 23:51> Post procedure diagnosis: Same <Tiera Cisneros MD - Last Filed: 10/03/24 23:51> Site marking: not applicable <Tiera Cisneros MD - Last Filed: 10/03/24 23:51> Name of person performing procedure: Tiera Cisneros <Tiera Cisneros MD - Last Filed: 10/03/24 23:51> Site: face <Tiera Cisneros MD - Last Filed: 10/03/24 23:51> Side (If applicable): right <Tiera Cisneros MD - Last Filed: 10/03/24 23:51> Size (cm): 1 <Tiera Cisneros MD - Last Filed: 10/03/24 23:51> Description: linear <Tiera Cisnerso MD - Last Filed: 10/03/24 23:51> Depth: simple, single layer <Tiera Cisneros MD - Last Filed: 10/03/24 23:51> Local Anesthetic: lidocaine 1% and with epi <Tiera Cisneros MD - Last Filed: 10/03/24 23:51> Amount of anesthesia used (mL): 5 (5 mL was drawn up and about 2.5 mL was used for sufficient local anesthesia of the 2 wounds.) <Tiera Cisneros MD - Last Filed: 10/03/24 23:51> Pre-repair: wound explored, irrigated extensively and deep structures intact <Tiera Cisneros MD - Last Filed: 10/03/24 23:51> Skin layer closed with: other (Ethilon) <Tiera Cisneros MD - Last Filed: 10/03/24 23:51> Size (cm): 4-0 <Tiera Cisneros MD - Last Filed: 10/03/24 23:51> Number of sutures: 3 <Tiera Cisneros MD - Last Filed: 10/03/24 23:51> Technique: simple, interrupted <Tiera Cisneros MD - Last Filed: 10/03/24 23:51> Wound cleansing: sterile water <Tiera Cisneros MD - Last Filed: 10/03/24 23:51> Estimated blood loss (if any): none <Tiera Cisneros MD - Last Filed: 10/03/24 23:51> Conclusion: patient tolerated procedure <Tiera Cisneros MD - Last Filed: 10/03/24 23:51> Laceration 2: Pre procedure diagnosis: Stellate lateral right eyebrow laceration <Tiera Cisneros MD - Last Filed: 10/03/24 23:51> Post procedure diagnosis: Same <Tiera Cisneros MD - Last Filed: 10/03/24 23:51> Site marking: not applicable <Tiera Cisneros MD - Last Filed: 10/03/24 23:51> Name of person performing procedure: Tiera Cisneros <Tiera Cisneros MD - Last Filed: 10/03/24 23:51> Site: face <Teira Cisneros MD - Last Filed: 10/03/24 23:51> Side (If applicable): right <Tiera Cisneros MD - Last Filed: 10/03/24 23:51> Size (cm): 1.25 <Tiera Cisneros MD - Last Filed: 10/03/24 23:51> Description: stellate <Tiera Cisneros MD - Last Filed: 10/03/24 23:51> Depth: simple, single layer <Tiera Cisneros MD - Last Filed: 10/03/24 23:51> Local Anesthetic: lidocaine 1% and with epi <Tiera Cisneros MD - Last Filed: 10/03/24 23:51> Amount of anesthesia used (mL): 5 (5 mL was drawn up but 2.5 mL was sufficient to provide local anesthesia for both wounds) <Tiera Cisneros MD - Last Filed: 10/03/24 23:51> Pre-repair: wound explored and irrigated extensively <Tiera Cisneros MD - Last Filed: 10/03/24 23:51> Skin layer closed with: other (Ethilon) <Tiera Cisneros MD - Last Filed: 10/03/24 23:51> Size (cm): 4-0 <Tiera Cisneros MD - Last Filed: 10/03/24 23:51> Number of sutures: 4 <Tiera Cisneros MD - Last Filed: 10/03/24 23:51> Technique: simple, interrupted <Tiera Cisneros MD - Last Filed: 10/03/24 23:51> Wound cleansing: sterile water <Tiera Cisneros MD - Last Filed: 10/03/24 23:51> Estimated blood loss (if any): none <Tiera Cisneros MD - Last Filed: 10/03/24 23:51> Conclusion: patient tolerated procedure <Tiera Cisneros MD - Last Filed: 10/03/24 23:51> Orthopedic Fracture Reduction Fracture #1: Written consent by: patient <Tiera Cisneros MD - Last Filed: 10/03/24 23:51> Time Out Performed: Yes <Tiera Cisneros MD - Last Filed: 10/03/24 23:51> Side: right <MD Demetris Guillen Last Filed: 10/03/24 23:51> Fracture location: radius <MD Demetris Guillen Last Filed: 10/03/24 23:51> Analgesia: procedural sedation <MD Demetris Guillen Last Filed: 10/03/24 23:51> Technique: direct manipulation <Tiera Cisneros MD - Last Filed: 10/03/24 23:51> Post Reduction X-rays Demonstrate: acceptable reduction <Tiera Cisneros MD - Last Filed: 10/03/24 23:51> Post-reduction neuro exam: intact <Tiera Cisneros MD - Last Filed: 10/03/24 23:51> Post-reduction vascular exam: intact <Tiera Cisneros MD - Last Filed: 10/03/24 23:51> Splint Applied: Yes (Short-arm dorsal volar splint with Ortho Glass) <Tiera Cisneros MD - Last Filed: 10/03/24 23:51> Patient Tolerated Procedure: well <Tiera Cisneros MD - Last Filed: 10/03/24 23:51>
--- NOTE | 2024-10-03 21:35 | CRLHL7_ITS ---
For Patients: As a result of the Century Cures Act, medical imaging exams and procedure reports are released immediately into your electronic medical record. You may view this report before your referring provider. If you have questions, please contact your health care provider. Indication: Trauma. Technique: Right wrist, 2 views. Comparison: October 03, 2024. Findings/Impression: Redemonstration of previously described distal radius fracture with improved alignment. Redemonstration of previously described distal ulnar/ulnar styloid fracture. Dictated by Theodore Hodges MD @ 10/03/2024 10:06:18 PM (Electronically Signed)
[2024-10-03] MEDS: PROPOFOL 10 MG/ML INJ 200 MG IVP (21:48)
[2024-10-03] MEDS: 0.9 % SODIUM CHLORIDE 250 ml 250 ML IV (21:51)
--- NOTE | 2024-10-03 22:12 | CRLHL7_ITS ---
For Patients: As a result of the Century Cures Act, medical imaging exams and procedure reports are released immediately into your electronic medical record. You may view this report before your referring provider. If you have questions, please contact your health care provider. INDICATION: Trauma, fall. TECHNIQUE: CT head without contrast. COMPARISON: None. FINDINGS: CSF spaces: Within normal limits for age. 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 The price-white differentiation is maintained elsewhere. No sign of mass, hemorrhage, or midline shift. Skull base and calvarium: Please refer to separate concurrent CT face regarding facial findings. Mastoid air cells are clear. No acute calvarial fracture. IMPRESSION: 1. No acute intracranial abnormality or acute calvarial fracture. 2. Multiple chronic infarcts in the left cerebral hemisphere. Please note that all CT scans at this facility use dose modulation, iterative reconstruction, and/or weight-based dosing when appropriate to reduce radiation dose to as low as reasonably achievable. Dictated by Carson Joiner MD @ 10/03/2024 10:55:12 PM (Electronically Signed)
--- NOTE | 2024-10-03 22:12 | CRLHL7_ITS ---
For Patients: As a result of the Century Cures Act, medical imaging exams and procedure reports are released immediately into your electronic medical record. You may view this report before your referring provider. If you have questions, please contact your health care provider. INDICATION: Trauma, fall. TECHNIQUE: CT maxillofacial without contrast. COMPARISON: None. FINDINGS: Facial bones: Mildly comminuted mildly displaced fracture of the right maxillary sinus anterior wall also involving the right orbital floor. Mildly comminuted minimally displaced fracture of the right maxillary sinus posterior wall. Nondisplaced fracture of the right zygomatic arch. Orbits and globes: Right periorbital soft tissue swelling. Globes are intact. Trace hemorrhage and emphysema along the extraconal right orbital floor. Retrobulbar soft tissues are unremarkable. Sinuses: Small air-fluid level in the right maxillary sinus. Soft tissues: Edentulous. IMPRESSION: 1. Right maxillary sinus anterior and posterior wall fractures including involvement of the right orbital floor. 2. Nondisplaced right zygomatic arch fracture. 3. Right periorbital soft tissue swelling and trace hemorrhage and emphysema along the extraconal right orbital floor. Please note that all CT scans at this facility use dose modulation, iterative reconstruction, and/or weight-based dosing when appropriate to reduce radiation dose to as low as reasonably achievable. Dictated by Carson Joiner MD @ 10/03/2024 11:05:41 PM (Electronically Signed)
[2024-10-03] MEDS: ACETAMINOPHEN 500 MG TABLET 1000 MG PO (22:34)
[2024-10-03] MEDS: OXYCODONE 5 MG TABLET PO (22:35)
[2024-10-04 00:02] VITALS: BP 156/97
== END 2024-10-04 00:13 | disposition short-term general hospital (02) ==
PROVIDERS: Emergency Provider Family Medicine
DX: S52.501A Unspecified fracture of the lower end of right radius, initial encounter for closed fracture (principal); S02.40CA Maxillary fracture, right side, initial encounter for closed fracture; S01.111A Laceration without foreign body of right eyelid and periocular area, initial encounter; W01.198A Fall on same level from slipping, tripping and stumbling with subsequent striking against other object, initial encounter; Y93.01 Activity, walking, marching and hiking; Y92.414 Local residential or business street as the place of occurrence of the external cause
CPT/HCPCS: 25605; 12013; 70450; 70486; 73100; 73110; 94761; 99156; 99285; A9270; J2704; J7050

== ENCOUNTER 2024-10-04 00:04 | Outpatient (CLI) | payer MEDICARE, SELFPAY ==
--- OUTSIDE RECORDS SUMMARY | 2024-10-09 15:58 | XMS_ITS | Referral Summary ---
Author Organization [facility] Address [address] [place] [address] Phone Care Team Providers Care Hi Teacher Name Role Phone Unavailable Primary Care Provider Unavailabl e Source Comments [employer] is fully rolled out on [facility] [employer] [facility]. Last update 04/29/09.[facility] Encounters Date Type Department Care Team Description 10/04/2024 Documentation Only Unspecified Department [place] Unknown, Provider 10/04/2024 Documentation Only Unspecified Department [place] Unknown, Provider 10/04/2024 Travel 10/04/2024 1:01 AM LIGHTING DESIGNER - 10/04/2024 7:45 AM [facility] Emergency [facility] Emergency Department [address] [place] [address] Roxy Mak MD Fall, initial encounter Discharge [...] Mild Pain. 30 tablet 10/04/2024 7:05 AM LIGHTING DESIGNER 4 Active ibuprofen (MOTRIN;ADVIL) 600 mg oral tablet Take 1 tablet (600 mg) by mouth 4 times daily as needed for Pain. 30 tablet 10/04/2024 7:05 AM LIGHTING DESIGNER 4 Active cephalexin (KEFLEX) 500 mg oral capsule Take 1 capsule (500 mg) by mouth 3 times daily for 7 days. 21 capsule 4 10/11/20 24 Active oxyCODONE (ROXICODONE) 5 mg oral tablet Take 1 tablet (5 mg) by mouth every 4 hours as needed for Pain. 5 tablet 10/04/2024 7:05 AM LIGHTING DESIGNER 4 10/07/20 24 cephalexin (KEFLEX) 500 mg oral capsule Take 1 capsule (500 mg) by mouth 3 times daily for 7 days. 21 capsule 4 10/04/20 24 Discontinued Social History Tobacco Use Types Packs/Day Years Used Date Smoking Tobacco: Never Assessed Sex and Gender Information Value Date Recorded Sex Assigned at Not on file Legal Sex Male 8:12 AM LIGHTING DESIGNER Gender Identity Not on file Sexual Orientation Not on file Last Filed Vital Signs Vital Sign Reading Time Taken Comments Blood Pressure 161/96 10/04/2024 6:26 AM LIGHTING DESIGNER Pulse 83 10/04/2024 6:26 AM LIGHTING DESIGNER Temperature 36.9 ??C (98.4 ??F) 10/04/2024 1:07 AM CS T Respiratory Rate 18 10/04/2024 6:26 AM LIGHTING DESIGNER Oxygen Saturation 94% 10/04/2024 6:26 AM LIGHTING DESIGNER Inhaled Oxygen Concentration - - Weight - - Height - - Body Mass Index - - Plan of Treatment Not on file Procedures Procedure Name Priority Date/Time Associated Diagnosis Comments EXTERNAL MED REC-IMAGING 10/05/2024 7:09 AM LIGHTING DESIGNER EXTERNAL MED REC-IMAGING 10/05/2024 7:[address] OUTSIDE READ HEAD/FACIAL BONES Routine 10/04/2024 2:[address] OUTSIDE READ HEAD/FACIAL BONES Routine 10/04/2024 2:11 AM LIGHTING DESIGNER PC LAB CBC W/DIFF & PLT STAT 10/04/2024 2:01 AM LIGHTING DESIGNER PC ELECTROLYTES PANEL STAT 10/04/2024 2:01 AM LIGHTING DESIGNER MAGNESIUM Routine 10/04/2024 2:00 AM LIGHTING DESIGNER EXTRA TUBE - DARK GREEN Routine 10/04/2024 2:00 AM LIGHTING DESIGNER EXTRA TUBE - BLUE Routine 10/04/2024 2:0 0 AM LIGHTING DESIGNER TC LAB BLOOD DRAW BY VENIPUNCTURE Routine 10/04/2024 2:00 AM LIGHTING DESIGNER from Last 3 Months Results * EXTERNAL MED REC-IMAGING (10/05/2024 7:09 AM LIGHTING DESIGNER) Only the most recent of2 resultswithin the time period is included. Anatomical Region Laterality Modality Other Narrative 10/05/2024 7:09 AM LIGHTING DESIGNER Ordered by an unspecified provider. us Provider Unknown RAD CT BODY Final Result * CT OUTSIDE READ HEAD/FACIAL BONES (10/04/2024 2:11 AM LIGHTING DESIGNER) Only the most recent of2 resultswithin the time period is included. Anatomical Region Laterality Modality Skull Computed Tomogra phy 10/04/2024 3:02 AM LIGHTING DESIGNER Impressions 10/04/2024 8:12 AM LIGHTING DESIGNER Impression: 1. No acute intracranial abnormality. 2. [...] Resident: Lety Cuadra Narrative 10/04/2024 8:12 AM LIGHTING DESIGNER Indication: ??Patient transferred from [facility] due to Trauma. ??No initial report accompanied the patient and/or Dr. ?MAAME MAK requested an interpretation by me. Technique: ??CT scan of the head done on 10/04/2024 without IV contrast. ??3 mm axial and coronal reconstructions reviewed in soft tissue and bone windows, per the local institution's scanning protocols, which may differ from the [facility] trauma protocols. Findings: Chronic encephalomalacia involving [...] MD - 10/04/2024 Indication: Patient transferred from [facility] due to Trauma.No initial report accompanied the patient and/or Dr. ROXY MAKrequested an interpretation by me. Technique: CT scan of the head done on 10/04/2024 without IV contrast. 3mm axial and coronal reconstructions reviewed in soft tissue and bonewindows, per the local institution's scanning protocols, which may differfrom the [facility] trauma protocols. Findings: Chronic encephalomalacia involving [...] ED CHEMISTRY LABS(NA,K,CL,CO2,GLU,CREAT,CA-IONIZED,ANION GAP) (10/04/2024 2:01 AM LIGHTING DESIGNER) Chloride 106 92 - 108 mmol/L [facility] AnGap 10 8 - 16 mmol/L [facility] Glucose 93 70 - 100 mg/dL [facility] ICA, Actual 4.63 4.40 - 5.20 mg/dL [facility] ICA, pH Corrected 4.63 4.40 - 5.20 mg/dL [facility] Creatinine 1.13 0.70 - 1.25 mg/dL [facility] BICARB 28(H) 22 - 26 mEq/L [facility] eGFR (2020 CKD-EPI) 75 >=60 ml/min/1.7 3m2 [facility] Comment: The estimated glomerular filtration rate (eGFR) was calculated using the CKD-EPI 2020 creatinine equation, which does not include race as a factor. This equation is validated in individuals 18 years of age and older, and eGFR is normalized to a body surface area of 1.73m^2. Sodium 144 135 - 148 mmol/L [facility] Potassium 2.8(AA) 3.5 - 5.3 mmol/L [facility] Comment:Critical Result Low Blood 10/04/2024 2:01 AM LIGHTING DESIGNER 10/04/2024 2:21 AM LIGHTING DESIGNER Narrative [facility] - 10/04/2024 2:12 PM LIGHTING DESIGNER Patient Discharged 10/04/2024 07:12:09 LIGHTING DESIGNER us Roxy Mak MD LABORATORY Edited Result - Final [facility] [address] [address] * CBC WITH PLTS/AUTO DIFF (10/04/2024 2:01 AM LIGHTING DESIGNER) WBC 9.96 4.00 - 10.00 k/cmm [facility] RBC 4.76 4.60 - 6.00 m/cmm [facility] Hgb 14.7 13.1 - 17.5 g/dL [facility] Hematocrit 42.0 40.0 - 51.0 % [facility] MCV 88.2 80.0 - 100.0 fL [facility] MCH 30.9 25.0 - 32.0 pg [facility] MCHC 35.0 31.0 - 36.0 g/dL [facility] RDW 13.8 11.5 - 14.5 % [facility] Plt 200 150 - 400 k/cmm [facility] MPV 10.0 6.5 - 12.5 fL [facility] Automated Abs Neutrophil 5.05 1.70 - 6.50 k/cmm [facility] Comment:Preliminary ANC, Fin al Result to Follow Abs Immature Granulocyte 0.02 0.00 - 0.09 k/cmm [facility] Comment:The Immature Granulo cyte Absolute count contains metamyelocytes and myelocytes. Abs Neutrophil 5.05 1.70 - 6.50 k/cmm [facility] Abs Lymphocyte 3.78 0.80 - 4.00 k/cmm [facility] Abs Monocyte 0.64 0.20 - 1.00 k/cmm [facility] Abs Eosinophil 0.39 0.00 - 0.60 k/cmm [facility] Abs Basophil 0.08 0.00 - 0.20 k/cmm [facility] Blood 10/04/2024 2:01 AM LIGHTING DESIGNER 10/04/2024 2:35 AM LIGHTING DESIGNER us Roxy Mak MD LABORATORY Edited Result - Final Performing Organization Address [facility] de Phone Number [address] [address] * EXTRA TUBE - DARK GREEN (10/04/2024 2:00 AM LIGHTING DESIGNER) DARK GREEN TUBE Stored [facility] Comment:Dark Green tubes (Li thium Heparin) are stored in the lab for 1 day from the collection date. Blood 10/04/2024 2:00 AM LIGHTING DESIGNER 10/04/2024 2:20 AM LIGHTING DESIGNER us Roxy Mak MD LABORATORY Final Result Performing Organization Address [facility] de Phone Number [facility] [address] [address] * EXTRA TUBE - LIGHT GREEN (10/04/2024 2:00 AM LIGHTING DESIGNER) LIGHT GREEN TUBE Stored [facility] Comment:Green tubes ([place] Heparin) are stored in the lab for 3 days from the collection date. Blood 10/04/2024 2:00 AM LIGHTING DESIGNER 10/04/2024 2:20 AM LIGHTING DESIGNER us Roxy Mak MD LABORATORY Final Result Performing Organization Address [facility] de Phone Number [address] [address] * EXTRA TUBE - BLUE (10/04/2024 2:00 AM LIGHTING DESIGNER) BLUE TUBE [facility] Comment:Blue top(Sodium citr ate) tubes are kept for 3 days from the collection date. Blood 10/04/2024 2:00 AM LIGHTING DESIGNER 10/04/2024 2:20 AM LIGHTING DESIGNER us Roxy Mak MD LABORATORY Final Result Performing Organization Address City/[facility]/ZIP Co de Phone Number [facility] [address] [address] * MAGNESIUM (10/04/2024 2:00 AM LIGHTING DESIGNER) Magnesium 2.3 1.6 - 2.6 mg/dL [facility] Blood 10/04/2024 2:00 AM LIGHTING DESIGNER 10/04/2024 4:04 AM LIGHTING DESIGNER Roxy Mak MD LABORATORY Final Result [facility] [address] [address] from Last 3 Months
--- OUTSIDE RECORDS SUMMARY | 2024-10-09 15:58 | XMS_ITS | Encounter Summary ---
Author Organization [facility][Note 3] Address [address] [place] [id number] Phone Care Team Providers Care Continuity Editor Name Role Phone Unavailable Primary Care Provider Unavailabl e Encounter Details Date Type Department Care Team (Latest Contact Info) Description 10/04/2024 Travel Social History Tobacco Use Types Packs/Day Years Used Date Smoking Tobacco: Never Assessed Sex and Gender Information Value Date Recorded Sex Assigned at Not on file Legal Sex Male 8:12 AM MEDICAL MALPRACTICE PARALEGAL Gender Identity Not on file Sexual Orientation Not on file documented as of this encounter Plan of Treatment Not on file documented as of this encounter Visit Diagnoses Not on filedocumented in this encounter
--- OUTSIDE RECORDS SUMMARY | 2024-10-09 15:58 | XMS_ITS | Clinical Summary ---
Author Organization [employer] Address [address] [place] [address] Phone Care Team Providers Care Cushion Maker Hand Name Role Phone Unavailable Primary Care Provider Unavailabl e Source Comments [employer] is fully rolled out on [employer]. Last update 04/29/09.[employer] Allergies No known active allergies Medications * Be aware that medications may not be up to date as of this document. Always verify current medications with patient. acetaminophen (TYLENOL) 500 mg oral tablet Take 1 tablet (500 mg) by mouth every 4 hours as needed for Mild Pain. 30 tablet 10/04/2024 7:05 AM ROOM SERVICE SERVER 4 Active ibuprofen (MOTRIN;ADVIL) 600 mg oral tablet Take 1 tablet (600 mg) by mouth 4 times daily as needed for Pain. 30 tablet 10/04/2024 7:05 AM ROOM SERVICE SERVER 4 Active cephalexin (KEFLEX) 500 mg oral capsule Take 1 capsule (500 mg) by mouth 3 times daily for 7 days. 21 capsule 4 10/11/20 24 Active oxyCODONE (ROXICODONE) 5 mg oral tablet Take 1 tablet (5 mg) by mouth every 4 hours as needed for Pain. 5 tablet 10/04/2024 7:05 AM ROOM SERVICE SERVER 4 10/07/20 24 cephalexin (KEFLEX) 500 mg oral capsule Take 1 capsule (500 mg) by mouth 3 times daily for 7 days. 21 capsule 4 10/04/20 24 Discontinued Encounters Date Type Department Care Team Description 10/04/2024 1:01 AM ROOM SERVICE SERVER - 10/04/2024 7:45 AM [facility] Emergency [facility] Emergency Department [address] [place] [address] Seam Hammerer, Roxy R, MD Fall, initial encounter Discharge [...] on file Legal Sex Male 8:12 AM ROOM SERVICE SERVER Gender Identity Not on file Sexual Orientation Not on file Last Filed Vital Signs Vital Sign Reading Time Taken Comments Blood Pressure 161/96 10/04/2024 6:26 AM ROOM SERVICE SERVER Pulse 83 10/04/2024 6:26 AM ROOM SERVICE SERVER Temperature 36.9 ??C (98.4 ??F) 10/04/2024 1:07 AM CS T Respiratory Rate 18 10/04/2024 6:26 AM ROOM SERVICE SERVER Oxygen Saturation 94% 10/04/2024 6:26 AM ROOM SERVICE SERVER Inhaled Oxygen Concentration - - Weight - [...] Comments EXTERNAL MED REC-IMAGING 10/05/2024 7:09 AM ROOM SERVICE SERVER EXTERNAL MED REC-IMAGING 10/05/2024 7:09 AM ROOM SERVICE SERVER CT OUTSIDE READ HEAD/FACIAL BONES Routine 10/04/2024 2:11 AM ROOM SERVICE SERVER CT OUTSIDE READ HEAD/FACIAL BONES Routine 10/04/2024 2:11 AM ROOM SERVICE SERVER PC LAB CBC W/DIFF & PLT STAT 10/04/2024 2:01 AM ROOM SERVICE SERVER PC ELECTROLYTES PANEL STAT 10/04/2024 2:01 AM ROOM SERVICE SERVER MAGNESIUM Routine 10/04/2024 2:00 AM ROOM SERVICE SERVER EXTRA TUBE - DARK GREEN Routine 10/04/2024 2:00 AM ROOM SERVICE SERVER EXTRA TUBE - BLUE Routine 10/04/2024 2:0 0 AM ROOM SERVICE SERVER TC LAB BLOOD DRAW BY VENIPUNCTURE Routine 10/04/2024 2:00 AM ROOM SERVICE SERVER from Last 3 Months Results * EXTERNAL MED REC-IMAGING (10/05/2024 7:09 AM ROOM SERVICE SERVER) Only the most recent of2 resultswithin the time period is included. Anatomical Region Laterality Modality Other Narrative 10/05/2024 7:09 AM ROOM SERVICE SERVER Ordered by an unspecified provider. us Provider Unknown RAD CT BODY Final Result * CT OUTSIDE READ HEAD/FACIAL BONES (10/04/2024 2:11 AM ROOM SERVICE SERVER) Only the most recent of2 resultswithin the time period is included. Anatomical Region Laterality Modality Skull Computed Tomogra phy 10/04/2024 3:02 AM ROOM SERVICE SERVER Impressions 10/04/2024 8:12 AM ROOM SERVICE SERVER Impression: 1. No acute intracranial abnormality. 2. [...] Baltazar Resident: Lety Cuadra 10/04/2024 8:12 AM ROOM SERVICE SERVER Indication: ??Patient transferred from [facility] due to Trauma. ??No initial report accompanied the patient and/or Dr. ??ROXY HARMON requested an interpretation by me. Technique: ??CT scan of the head done on 10/04/2024 without IV contrast. ??3 mm axial and coronal reconstructions reviewed in soft tissue and bone windows, per the local institution's scanning protocols, which may differ from the [facility] trauma protocols. Findings: Chronic encephalomalacia involving the [...] MD - 10/04/2024 Indication: Patient transferred from [facility] due to Trauma.No initial report accompanied the patient and/or Dr. ROXY HARMONrequested an interpretation by me. Technique: CT scan of the head done on 10/04/2024 without IV contrast. 3mm axial and coronal reconstructions reviewed in soft tissue and bonewindows, per the local institution's scanning protocols, which may differfrom the [facility] trauma protocols. Findings: Chronic encephalomalacia involving the [...] ED CHEMISTRY LABS(NA,K,CL,CO2,GLU,CREAT,CA-IONIZED,ANION GAP) (10/04/2024 2:01 AM ROOM SERVICE SERVER) Chloride 106 92 - 108 mmol/L [facility] AnGap 10 8 - 16 mmol/L [facility] Glucose 93 70 - 100 mg/dL [facility] ICA, Actual 4.63 4.40 - 5.20 mg/dL [facility] ICA, pH Corrected 4.63 4.40 - 5.20 mg/dL [facility] Creatinine 1.13 0.70 - 1.25 mg/dL [facility] BICARB 28(H) 22 - 26 mEq/L [facility] eGFR (2020 CKD-EPI) 75 >=60 ml/min/1.7 3m2 [facility] Comment: The estimated glomerular filtration rate (eGFR) was calculated using the CKD-EPI 2020 creatinine equation, which does not include race as a factor. This equation is validated in individuals 18 years of age and older, and eGFR is normalized to a body surface area of 1.73m^2. Sodium 144 135 - 148 mmol/L [facility] Potassium 2.8(AA) 3.5 - 5.3 mmol/L [facility] Comment:Critical Result Low Blood 10/04/2024 2:01 AM ROOM SERVICE SERVER 10/04/2024 2:21 AM ROOM SERVICE SERVER Narrative [facility] - 10/04/2024 2:12 PM ROOM SERVICE SERVER Patient Discharged 10/04/2024 07:12:09 ROOM SERVICE SERVER Roxy Harmon MD LABORATORY Edited Result - Final [facility] [address] [place] [address] * CBC WITH PLTS/AUTO DIFF (10/04/2024 2:01 AM ROOM SERVICE SERVER) Pathologist [facility] WBC 9.96 4.00 - 10.00 k/cmm [facility] RBC 4.76 4.60 - 6.00 m/cmm [facility] Hgb 14.7 13.1 - 17.5 g/dL [facility] Hematocrit 42.0 40.0 - 51.0 % [facility] MCV 88.2 80.0 - 100.0 fL [facility] MCH 30.9 25.0 - 32.0 pg [facility] MCHC 35.0 31.0 - 36.0 g/dL [facility] RDW 13.8 11.5 - 14.5 % [facility] Plt 200 150 - 400 k/cmm [facility] MPV 10.0 6.5 - 12.5 fL [facility] Automated Abs Neutrophil 5.05 1.70 - 6.50 k/cmm [facility] Comment:Preliminary ANC, Fin al Result to Follow Abs Immature Granulocyte 0.02 0.00 - 0.09 k/cmm [facility] Comment:The Immature Granulo cyte Absolute count contains metamyelocytes and myelocytes. Abs Neutrophil 5.05 1.70 - 6.50 k/cmm [facility] Abs Lymphocyte 3.78 0.80 - 4.00 k/cmm [facility] Abs Monocyte 0.64 0.20 - 1.00 k/cmm [facility] Abs Eosinophil 0.39 0.00 - 0.60 k/cmm [facility] Abs Basophil 0.08 0.00 - 0.20 k/cmm [facility] Blood 10/04/2024 2:01 AM ROOM SERVICE SERVER 10/04/2024 2:35 AM ROOM SERVICE SERVER Roxy Harmon MD LABORATORY Edited Result - Final [facility] [address] [place] [address] * EXTRA TUBE - DARK GREEN (10/04/2024 2:00 AM ROOM SERVICE SERVER) DARK GREEN TUBE Stored [facility] Comment:Dark Green tubes (Li thium Heparin) are stored in the lab for 1 day from the collection date. Blood 10/04/2024 2:00 AM ROOM SERVICE SERVER 10/04/2024 2:20 AM ROOM SERVICE SERVER us Roxy Harmon MD LABORATORY Final Result Performing Organization Address [facility] de Phone Number [facility] [address] [address] * EXTRA TUBE - LIGHT GREEN (10/04/2024 2:00 AM ROOM SERVICE SERVER) LIGHT GREEN TUBE Stored [facility] Comment:Green tubes ([place] Heparin) are stored in the lab for 3 days from the collection date. Blood 10/04/2024 2:00 AM ROOM SERVICE SERVER 10/04/2024 2:20 AM ROOM SERVICE SERVER us Roxy Harmon MD LABORATORY Final Result Performing Organization Address [facility] de Phone Number [facility] [address] [address] * EXTRA TUBE - BLUE (10/04/2024 2:00 AM ROOM SERVICE SERVER) BLUE TUBE [facility] Comment:Blue top(Sodium citr ate) tubes are kept for 3 days from the collection date. Blood 10/04/2024 2:00 AM ROOM SERVICE SERVER 10/04/2024 2:20 AM ROOM SERVICE SERVER us Roxy Harmon MD LABORATORY Final Result Performing Organization Address [facility] de Phone Number [facility] [address] [address] * MAGNESIUM (10/04/2024 2:00 AM ROOM SERVICE SERVER) Magnesium 2.3 1.6 - 2.6 mg/dL [facility] Blood 10/04/2024 2:00 AM ROOM SERVICE SERVER 10/04/2024 4:04 AM ROOM SERVICE SERVER us Roxy Harmon MD LABORATORY Final Result [facility] [address] [place] [address] from Last 3 Months
--- OUTSIDE RECORDS SUMMARY | 2024-10-09 15:58 | XMS_ITS | Encounter Summary ---
Author Organization [facility] Address [address] [place] [address] Phone Care Team Providers Care Plastics And Composites Inspector Name Role Phone Unavailable Primary Care Provider Unavailabl e Encounter Details Date Type Department Care Team (Late st Contact Info) Description 10/04/2024 Documentation Only Unspecified Department [place] Unknown, Provider Social History Tobacco Use Types Packs/Day Years Used Date Smoking Tobacco: Never Assessed Sex and Gender Information Value Date Recorded Sex Assigned at Not on file Legal Sex Male 8:12 AM PROGRAM INSTRUCTOR Gender Identity Not on file Sexual Orientation Not on file documented as of this encounter Plan of Treatment Not on file documented as of this encounter Procedures Procedure Name Priority Date/Time Associated Diagnosis Comments EXTERNAL MED REC-IMAGING 10/05/2024 7:09 AM PROGRAM INSTRUCTOR documented in this encounter Results * EXTERNAL MED REC-IMAGING (10/05/2024 7:09 AM PROGRAM INSTRUCTOR) Anatomical Region Laterality Modality Other Narrative 10/05/2024 7:09 AM PROGRAM INSTRUCTOR Ordered by an unspecified provider. us Provider Unknown RAD CT BODY Final Result documented in this encounter Visit Diagnoses Not on filedocumented in this encounter
--- OUTSIDE RECORDS SUMMARY | 2024-10-09 15:58 | XMS_ITS | Encounter Summary ---
Author Organization [facility] Address [address] [facility] [place] [address] Phone Care Team Providers Care Motor Rebuilder Name Role Phone Unavailable Primary Care Provider Unavailabl e Reason for Visit * Reason Comments Eye Trauma Encounter Details Date Type Department Care Team (Late st Contact Info) Description 10/04/2024 1:01 AM EXTERNAL GRINDER TENDER - 10/04/2024 7:45 AM EXTERNAL GRINDER TENDER Emergency [facility] Emergency Department [address] [facility] [address] [place], [place] [id number] Roxy Mak MD [address] [facility] [address] [place] [address] Fall, initial encounter Discharge Disposition: Discharged to home or self care Social History Tobacco Use Types Packs/Day Years Used Date Smoking Tobacco: Never Assessed Sex and Gender Information Value Date Recorded Sex Assigned at Not on file Legal Sex Male 8:12 AM EXTERNAL GRINDER TENDER Gender Identity Not on file Sexual Orientation Not on file documented as of this encounter Last Filed Vital Signs Vital Sign Reading Time Taken Comments Blood Pressure 161/96 10/04/2024 6:26 AM EXTERNAL GRINDER TENDER Pulse 83 10/04/2024 6:26 AM EXTERNAL GRINDER TENDER Temperature 36.9 ??C (98.4 ??F) 10/04/2024 1:07 AM CS T Respiratory Rate 18 10/04/2024 6:26 AM EXTERNAL GRINDER TENDER Oxygen Saturation 94% 10/04/2024 6:26 AM EXTERNAL GRINDER TENDER Inhaled Oxygen Concentration - - Weight - - Height - - Body Mass Index - - documented in this encounter Discharge Instructions * Discharge Instructions* Sharif Mayo MD - 10/04/2024 6:35 AM EXTERNAL GRINDER TENDER Please take your medications as prescribed. Follow [...] worsen or if you experience new symptoms. RNAL GRINDER TENDER RNAL GRINDER TENDER documented in this encounter Medications at Time of Discharge acetaminophen (TYLENOL) 500 mg oral tablet Take 1 tablet (500 mg) by mouth every 4 hours as needed for Mild Pain. 30 tablet 10/04/2024 7:05 AM EXTERNAL GRINDER TENDER 10/04/2024 ibuprofen (MOTRIN;ADVIL) 600 mg oral tablet Take 1 tablet (600 mg) by mouth 4 times daily as needed for Pain. 30 tablet 10/04/2024 7:05 AM EXTERNAL GRINDER TENDER 10/04/2024 cephalexin (KEFLEX) 500 mg oral capsule Take 1 capsule (500 mg) by mouth 3 times daily for 7 days. 21 capsule 10/04/2024 10/11/2024 oxyCODONE (ROXICODONE) 5 mg oral tablet Take 1 tablet (5 mg) by mouth every 4 hours as needed for Pain. 5 tablet 10/04/2024 7:05 AM EXTERNAL GRINDER TENDER 10/04/2024 10/07/2024 documented as of this encounter ED Notes * Mary Troncoso - 10/04/2024 1:36 AM CST Pt transferred from [facility]. R wrist fx reduced in [place]. Pos for periorbital fx. Pt received 50 mcg of fentanyl given at 0100. RNAL GRINDER TENDER * Sharif Mayo MD - 10/04/2024 1:14 [...] have gone undetected. Please contact me via [employer] staff message if you note any errors requiring clarification. RNAL GRINDER TENDER * Lexus Fung RN - 10/04/2024 12:03 AM CST Incoming report from JORDAN June at [facility] Pt was crossing the street. The [...] Oxy, 250 fluids. Will have 18 RAC RNAL GRINDER TENDER documented in this encounter Miscellaneous Notes * [...] of services. Signed: Roxy Mak MD, 01:17112/04/2023 RNAL GRINDER TENDER documented in this encounter Plan of Treatment Not on file documented as of this encounter Procedures Procedure Name Priority Date/Time Associated Diagnosis Comments CT OUTSIDE READ HEAD/FACIAL BONES Routine 10/04/2024 2:11 AM EXTERNAL GRINDER TENDER CT OUTSIDE READ HEAD/FACIAL BONES Routine 10/04/2024 2:11 AM EXTERNAL GRINDER TENDER PC ELECTROLYTES PANEL STAT 10/04/2024 2:01 AM EXTERNAL GRINDER TENDER PC LAB CBC W/DIFF & PLT STAT 10/04/2024 2:01 AM EXTERNAL GRINDER TENDER EXTRA TUBE - DARK GREEN Routine 10/04/2024 2:00 AM EXTERNAL GRINDER TENDER TC LAB BLOOD DRAW BY VENIPUNCTURE Routine 10/04/2024 2:00 AM EXTERNAL GRINDER TENDER EXTRA TUBE - BLUE Routine 10/04/2024 2:0 0 AM EXTERNAL GRINDER TENDER MAGNESIUM Routine 10/04/2024 2:00 AM EXTERNAL GRINDER TENDER documented in this encounter Results * CT OUTSIDE READ HEAD/FACIAL BONES (10/04/2024 2:11 AM EXTERNAL GRINDER TENDER) Anatomical Region Laterality Modality Skull Computed Tomogra phy 10/04/2024 3:02 AM EXTERNAL GRINDER TENDER Impressions 10/04/2024 8:12 AM EXTERNAL GRINDER TENDER Impression: 1. No acute intracranial abnormality. [...] Reading Resident: Lety Cuadra 10/04/2024 8:12 AM EXTERNAL GRINDER TENDER Indication: ??Patient transferred from [facility] due to Trauma. ??No initial report accompanied the patient and/or Dr. ??ROXY MAK requested an interpretation by me. Technique: ??CT scan of the head done on 10/04/2024 without IV contrast. ??3 mm axial and coronal reconstructions reviewed in soft tissue and bone windows, per the local institution's scanning protocols, which may differ from the [facility] trauma protocols. Findings: Chronic encephalomalacia involving the [...] MD - 10/04/2024 Indication: Patient transferred from [facility] due to Trauma.No initial report accompanied the patient and/or Dr. ROXY MAKrequested an interpretation by me. Technique: CT scan of the head done on 10/04/2024 without IV contrast. 3mm axial and coronal reconstructions reviewed in soft tissue and bonewindows, per the local institution's scanning protocols, which may differfrom the [facility] trauma protocols. Findings: Chronic encephalomalacia involving the [...] OUTSIDE READ HEAD/FACIAL BONES (10/04/2024 2:11 AM EXTERNAL GRINDER TENDER) Anatomical Region Laterality Modality Skull Computed Tomogra phy 10/04/2024 2:51 AM EXTERNAL GRINDER TENDER Impressions 10/04/2024 8:10 AM EXTERNAL GRINDER TENDER Impression: Acute depressed fractures of the right [...] Resident: Lety Cuadra Narrative 10/04/2024 8:10 AM EXTERNAL GRINDER TENDER Indication: ??Patient transferred from [facility] due to Trauma. ??No initial report accompanied the patient and/or Dr. ?MAAME MAK requested an interpretation by me. Technique: ??CT scan of the facial bone done on 10/04/2024 without IV contrast. ??3 mm axial and coronal reconstructions reviewed in soft tissue and bone windows, per the local institution's scanning protocols, which may differ from the [facility] trauma protocols. Findings: ??Right periorbital swelling. Minimally [...] MD - 10/04/2024 Indication: Patient transferred from [facility] due to Trauma.No initial report accompanied the patient and/or Dr. ROXY MAKrequested an interpretation by me. Technique: CT scan of the facial bone done on 10/04/2024 without IVcontrast. 3 mm axial and coronal reconstructions reviewed in soft tissueand bone windows, per the local institution's scanning protocols, whichmay differ from the [facility] trauma protocols. Findings: Right periorbital swelling. Minimally [...] as documented by the resident/fellow. Reading Radiologist: Wnedy Baltazar Reading Resident: Lety Cuadra Roxy Mak MD RAD CT NEURO Final Result * CBC WITH PLTS/AUTO DIFF (10/04/2024 2:01 AM EXTERNAL GRINDER TENDER) WBC 9.96 4.00 - 10.00 k/cmm [facility] LAB RBC 4.76 4.60 - 6.00 m/cmm [facility] LAB Hgb 14.7 13.1 - 17.5 g/dL [facility] Hematocrit 42.0 40.0 - 51.0 % [facility] MCV 88.2 80.0 - 100.0 fL [facility] MCH 30.9 25.0 - 32.0 pg [facility] MCHC 35.0 31.0 - 36.0 g/dL [facility] RDW 13.8 11.5 - 14.5 % [facility] Plt 200 150 - 400 k/cmm [facility] MPV 10.0 6.5 - 12.5 fL [facility] Automated Abs Neutrophil 5.05 1.70 - 6.50 k/cmm [facility] Comment:Preliminary ANC, Fin al Result to Follow Abs Immature Granulocyte 0.02 0.00 - 0.09 k/cmm [facility] Comment:The Immature Granulo cyte Absolute count contains metamyelocytes and myelocytes. Abs Neutrophil 5.05 1.70 - 6.50 k/cmm [facility] Abs Lymphocyte 3.78 0.80 - 4.00 k/cmm [facility] Abs Monocyte 0.64 0.20 - 1.00 k/cmm [facility] Abs Eosinophil 0.39 0.00 - 0.60 k/cmm [facility] Abs Basophil 0.08 0.00 - 0.20 k/cmm [facility] Blood 10/04/2024 2:01 AM EXTERNAL GRINDER TENDER 10/04/2024 2:35 AM EXTERNAL GRINDER TENDER Roxy Mak MD LABORATORY Edited Result - Final [facility] [address] [place] [address] * (ABNORMAL) ED CHEMISTRY LABS(NA,K,CL,CO2,GLU,CREAT,CA-IONIZED,ANION GAP) (10/04/2024 2:01 AM EXTERNAL GRINDER TENDER) Chloride 106 92 - 108 mmol/L [facility] AnGap 10 8 - 16 mmol/L [facility] Glucose 93 70 - 100 mg/dL [facility] ICA, Actual 4.63 4.40 - 5.20 mg/dL [facility] ICA, pH Corrected 4.63 4.40 - 5.20 mg/dL [facility] Creatinine 1.13 0.70 - 1.25 mg/dL [facility] BICARB 28(H) 22 - 26 mEq/L [facility] eGFR (2020 CKD-EPI) 75 >=60 ml/min/1.7 3m2 [facility] Comment: The estimated glomerular filtration rate (eGFR) was calculated using the CKD-EPI 2020 creatinine equation, which does not include race as a factor. This equation is validated in individuals 18 years of age and older, and eGFR is normalized to a body surface area of 1.73m^2. Sodium 144 135 - 148 mmol/L [facility] Potassium 2.8(AA) 3.5 - 5.3 mmol/L [facility] Comment:Critical Result Low Blood 10/04/2024 2:01 AM EXTERNAL GRINDER TENDER 10/04/2024 2:21 AM EXTERNAL GRINDER TENDER Narrative [facility] - 10/04/2024 2:12 PM EXTERNAL GRINDER TENDER Patient Discharged 10/04/2024 07:12:09 EXTERNAL GRINDER TENDER us Roxy Mak MD LABORATORY Edited Result - Final [facility] [address] [address] * MAGNESIUM (10/04/2024 2:00 AM EXTERNAL GRINDER TENDER) Magnesium 2.3 1.6 - 2.6 mg/dL [facility] Blood 10/04/2024 2:00 AM EXTERNAL GRINDER TENDER 10/04/2024 4:04 AM EXTERNAL GRINDER TENDER us Roxy Mak MD LABORATORY Final Result Performing Organization Address [facility] Co de Phone Number [address] [address] * EXTRA TUBE - DARK GREEN (10/04/2024 2:00 AM EXTERNAL GRINDER TENDER) DARK GREEN TUBE Stored [facility] LAB Comment:Dark Green tubes (Li thium Heparin) are stored in the lab for 1 day from the collection date. Blood 10/04/2024 2:00 AM EXTERNAL GRINDER TENDER 10/04/2024 2:20 AM EXTERNAL GRINDER TENDER us Roxy Mak MD LABORATORY Final Result Performing Organization Address [facility] de Phone Number [address] [address] * EXTRA TUBE - BLUE (10/04/2024 2:00 AM EXTERNAL GRINDER TENDER) BLUE TUBE [facility] Comment:Blue top(Sodium citr ate) tubes are kept for 3 days from the collection date. Blood 10/04/2024 2:00 AM EXTERNAL GRINDER TENDER 10/04/2024 2:20 AM EXTERNAL GRINDER TENDER us Roxy Mak MD LABORATORY Final Result Performing Organization Address [facility] de Phone Number [address] [address] * EXTRA TUBE - LIGHT GREEN (10/04/2024 2:00 AM EXTERNAL GRINDER TENDER) LIGHT GREEN TUBE Stored [facility] LAB Comment:Green tubes ([place] Heparin) are stored in the lab for 3 days from the collection date. Blood 10/04/2024 2:00 AM EXTERNAL GRINDER TENDER 10/04/2024 2:20 AM EXTERNAL GRINDER TENDER us Roxy Mak MD LABORATORY Final Result Performing Organization Address [facility] Co de Phone Number [address] [address] documented in this encounter Visit Diagnoses Diagnosis [...] 10/04/24 at 0150 Given 10/04/2024 1:52 AM EXTERNAL GRINDER TENDER 10 mg oxyCODONE (ROXICODONE) tablet 10 mg 10 mg, Oral, ONE TIME, 1 dose, On 10/04/24 at 0445 Given 10/04/2024 4:47 AM EXTERNAL GRINDER TENDER 10 mg potassium chloride (K-ALISSA) powder 40 mEq 40 mEq, Oral, ONE TIME, 1 dose, On 10/04/24 at 0250 Given 10/04/2024 2:52 AM EXTERNAL GRINDER TENDER 40 mEq documented in this encounter Active and Recently Administered Medications Times are shown in EXTERNAL GRINDER TENDER. Scheduled Medication Order 10/02/2024 10/03/2024 10/04/2024 oxyCODONE [...]
== END 2024-10-04 00:05 | disposition home or self-care (01) ==
LOC: AMB 10-09 15:57
PROVIDERS: Visit Provider Family Medicine
DX: S01.81XA Laceration without foreign body of other part of head, initial encounter (principal); S02.401A Maxillary fracture, unspecified side, initial encounter for closed fracture; S02.40EA Zygomatic fracture, right side, initial encounter for closed fracture
CPT/HCPCS: A0425; A0427

== ENCOUNTER 2024-10-07 12:57 | Outpatient (CLI) | payer MEDICARE, SELFPAY ==
--- OUTSIDE RECORDS SUMMARY | 2024-10-07 13:01 | XMS_ITS | Encounter Summary ---
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
--- OUTSIDE RECORDS SUMMARY | 2024-10-07 13:01 | XMS_ITS | Clinical Summary ---
Author Organization [facility] Address [address] [place] [address] Phone Care Team Providers Care Favor Maker Name Role Phone Unavailable Primary Care Provider Unavailabl e Source Comments [facility] is fully rolled out on [facility]. Last update 04/29/09.[facility] Allergies No known active allergies Medications * Be aware that medications may not be up to date as of this document. Always verify current medications with patient. acetaminophen (TYLENOL) 500 mg oral tablet Take 1 tablet (500 mg) by mouth every 4 hours as needed for Mild Pain. 30 tablet 10/04/2024 7:05 AM MATTING PRESS TENDER 4 Active ibuprofen (MOTRIN;ADVIL) 600 mg oral tablet Take 1 tablet (600 mg) by mouth 4 times daily as needed for Pain. 30 tablet 10/04/2024 7:05 AM MATTING PRESS TENDER 4 Active oxyCODONE (ROXICODONE) 5 mg oral tablet Take 1 tablet (5 mg) by mouth every 4 hours as needed for Pain. 5 tablet 10/04/2024 7:05 AM MATTING PRESS TENDER 4 10/07/20 24 Active cephalexin (KEFLEX) 500 mg oral capsule Take 1 capsule (500 mg) by mouth 3 times daily for 7 days. 21 capsule 4 10/11/20 24 Active cephalexin (KEFLEX) 500 mg oral capsule Take 1 capsule (500 mg) by mouth 3 times daily for 7 days. 21 capsule 4 10/04/20 24 Discontinued Encounters Date Type Department Care Team Description 10/04/2024 1:01 AM MATTING PRESS TENDER - 10/04/2024 7:45 AM [facility] Emergency [facility] [address] [facility] [address] [place] [address] [place], Roxy R, MD Fall, initial encounter Discharge Disposition: Discharged to home or self care 10/04/2024 Documentation Only Unspecified Department [place] Unknown, Provider 10/04/2024 Documentation Only Unspecified Department [place] Unknown, Provider 10/04/2024 Travel from Last 3 Months Social History Tobacco Use Types Packs/Day Years Used Date Smoking Tobacco: Never Assessed Sex and Gender Information Value Date Recorded Sex Assigned at Not on file Legal Sex Male 8:12 AM MATTING PRESS TENDER Gender Identity Not on file Sexual Orientation Not on file Last Filed Vital Signs Vital Sign Reading Time Taken Comments Blood Pressure 161/96 10/04/2024 6:26 AM MATTING PRESS TENDER Pulse 83 10/04/2024 6:26 AM MATTING PRESS TENDER Temperature 36.9 ??C (98.4 ??F) 10/04/2024 1:07 AM CS T Respiratory Rate 18 10/04/2024 6:26 AM MATTING PRESS TENDER Oxygen Saturation 94% 10/04/2024 6:26 AM MATTING PRESS TENDER Inhaled Oxygen Concentration - - Weight - - Height - - Body Mass Index - - Plan of Treatment Health Maintenance Due Date Last Done Comments CT Colonography 1966 Colonoscopy 1966 Colorectal Cancer Screening 1966 Dental Oral Exam 1966 Dental Prophylaxis 1966 Dental X-Ray: Bitewings 1966 Depression Management 1966 FIT/Cologuard 1966 Sigmoidoscopy 1966 iFOB/FIT 1966 Imm: Pneumonia Peds or At-Risk less than 65 years (1 of 2 - PCV) 1972 Periodontal Maintenance 1980 PREVENTATIVE VISIT 1984 HEALTH MAINTENANCE PROTOCOL 1985 Imm: HepB (1 of 3 - 19+ 3-dose series) 1985 Imm: Zoster (1 of 2) 2016 Imm: COVID-19 ( season) 2024 11/03/2021, 07/06/2021 Imm: Flu (#1) 07/26/2024 12/29/2023 Imm: DTaP/Tdap (3 - Td or Tdap) 05/08/2027 05/08/2017, 03/18/2007, 03/24/1999, Additional history exists Lipid Screening 04/24/2028 04/24/2023, 07/18/2020 HIV Screening Completed 04/24/2023 Imm: HPV Aged Out No longer eligi ble based on patient's age to complete this topic Imm: HepA Aged Out No longer eligi ble based on patient's age to complete this topic Imm: Hib Aged Out No longer eligi ble based on patient's age to complete this topic Imm: Meningitis Aged Out No longer el igible based on patient's age to complete this topic Procedures Procedure Name Priority Date/Time Associated Diagnosis Comments EXTERNAL MED REC-IMAGING 10/05/2024 7:09 AM MATTING PRESS TENDER EXTERNAL MED REC-IMAGING 10/05/2024 7:[address] OUTSIDE READ HEAD/FACIAL BONES Routine 10/04/2024 2:[address] OUTSIDE READ HEAD/FACIAL BONES Routine 10/04/2024 2:11 AM MATTING PRESS TENDER PC LAB CBC W/DIFF & PLT STAT 10/04/2024 2:01 AM MATTING PRESS TENDER PC ELECTROLYTES PANEL STAT 10/04/2024 2:01 AM MATTING PRESS TENDER MAGNESIUM Routine 10/04/2024 2:00 AM MATTING PRESS TENDER EXTRA TUBE - DARK GREEN Routine 10/04/2024 2:00 AM MATTING PRESS TENDER EXTRA TUBE - BLUE Routine 10/04/2024 2:0 0 AM MATTING PRESS TENDER TC LAB BLOOD DRAW BY VENIPUNCTURE Routine 10/04/2024 2:00 AM MATTING PRESS TENDER from Last 3 Months Results * EXTERNAL MED REC-IMAGING (10/05/2024 7:09 AM MATTING PRESS TENDER) Only the most recent of2 resultswithin the time period is included. Anatomical Region Laterality Modality Other Narrative 10/05/2024 7:09 AM MATTING PRESS TENDER Ordered by an unspecified provider. us Provider Unknown RAD CT BODY Final Result * CT OUTSIDE READ HEAD/FACIAL BONES (10/04/2024 2:11 AM MATTING PRESS TENDER) Only the most recent of2 resultswithin the time period is included. Anatomical Region Laterality Modality Skull Computed Tomogra phy 10/04/2024 3:02 AM MATTING PRESS TENDER Impressions 10/04/2024 8:12 AM MATTING PRESS TENDER Impression: 1. No acute intracranial abnormality. 2. 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 3. Acute fractures of the right orbital floor, right lateral orbital wall, right zygomatic arch and lateral wall of the right maxillary sinus. No evidence of extraocular muscle entrapment. [place] Traumatic Brain Injury Scale: Diffuse Injury 1 [place] DIAGNOSTIC CATEGORIES OF ABNORMALITIES VISUALIZED ON CT SCANNING FOR TRAUMATIC BRAIN INJURY: Diffuse Injury 1: No visible intracranial pathology seen on CT scan. Diffuse Injury 2: Cisterns are present with shift 0-5 mm and/or lesion densities present. No high or mixed density lesion >25ml. May include bone fragments and foreign bodies. Diffuse Injury 3 (swelling): Cisterns compressed or absent with shift 0-5mm. No high or mixed density lesion > 25ml. ? Diffuse Injury 4 (shift): Shift > 5mm. No high or mixed density lesion > 25ml. Evacuated mass lesion: Any surgically evacuated lesion. ?? Non evacuated mass lesion: High or mixed-density lesion > 25ml. Not surgically evacuated. I have personally reviewed the image(s) and initial interpretation, and I agree with the findings as documented by the resident/fellow. Reading Radiologist: Wendy Baltazar Resident: Lety Cuadra 10/04/2024 8:12 AM MATTING PRESS TENDER Indication: ??Patient transferred from [facility] due to Trauma. ??No initial report accompanied the patient and/or Dr. ??ROXY HARMON requested an interpretation by me. Technique: ??CT scan of the head done on 10/04/2024 without IV contrast. ??3 mm axial and coronal reconstructions reviewed in soft tissue and bone windows, per the local institution's scanning protocols, which may differ from the [facility] trauma protocols. Findings: Chronic encephalomalacia involving the left superior frontal and left parieto-occipital lobes. No evidence of intracranial hemorrhage, mass effect, midline shift or abnormal extraaxial fluid collection. ??The ventricles do not appear enlarged out of proportion to the cerebral sulci. No acute loss of price-white matter differentiation. Acute nondisplaced fractures of the right orbital floor, right lateral orbital wall, and ??lateral wall of the right maxillary sinus. The bony calvarium and the bones of the skull base appear intact. Air-fluid level in the right maxillary sinus. Mucosal thickening of the ethmoid sinuses. Partial opacification of the left mastoid air cells. Procedure Note Wendy Baltazar MD - 10/04/2024 Indication: Patient transferred from [facility] due to Trauma.No initial report accompanied the patient and/or Dr. ROXY HARMONrequested an interpretation by me. Technique: CT scan of the head done on 10/04/2024 without IV contrast. 3mm axial and coronal reconstructions reviewed in soft tissue and bonewindows, per the local institution's scanning protocols, which may differfrom the [facility] trauma protocols. Findings: Chronic encephalomalacia involving the left superior frontal andleft parieto-occipital lobes. No evidence of intracranial hemorrhage, masseffect, midline shift or abnormal extraaxial fluid collection. Theventricles do not appear enlarged out of proportion to the cerebral sulci.No acute loss of price-white matter differentiation. Acute nondisplaced fractures of the right orbital floor, right lateralorbital wall, and lateral wall of the right maxillary sinus. The bonycalvarium and the bones of the skull base appear intact. Air-fluid levelin the right maxillary sinus. Mucosal thickening of the ethmoid sinuses.Partial opacification of the left mastoid air cells. IMPRESSION Impression: 1. No acute intracranial abnormality. 2. Chronic infarctions involving the left superior frontal and leftparietal occipital lobes. 3. Acute fractures of the right orbital floor, right lateral orbital wall,right zygomatic arch and lateral wall of the right maxillary sinus. Noevidence of extraocular muscle entrapment. [place] Traumatic Brain Injury Scale: Diffuse Injury 1 [place] DIAGNOSTIC CATEGORIES OF ABNORMALITIES VISUALIZED ON CT SCANNINGFOR TRAUMATIC BRAIN INJURY: Diffuse Injury 1: No visible intracranial pathology seen on CT scan. Diffuse Injury 2: Cisterns are present with shift 0-5 mm and/or lesiondensities present. No high or mixed density lesion >25ml. May include bonefragments and foreign bodies. Diffuse Injury 3 (swelling): Cisterns compressed or absent with shift0-5mm. No high or mixed density lesion > 25ml. Diffuse Injury 4 (shift): Shift > 5mm. No high or mixed density lesion >25ml. Evacuated mass lesion: Any surgically evacuated lesion. Non evacuated mass lesion: High or mixed-density lesion > 25ml. Notsurgically evacuated. I have personally reviewed the image(s) and initial interpretation, and Iagree with the findings as documented by the resident/fellow. Reading Radiologist: Wendy Baltazar Reading Resident: Lety Cuadra Roxy Harmon MD RAD CT NEURO Final Result * (ABNORMAL) ED CHEMISTRY LABS(NA,K,CL,CO2,GLU,CREAT,CA-IONIZED,ANION GAP) (10/04/2024 2:01 AM MATTING PRESS TENDER) Chloride 106 92 - 108 mmol/L [facility] AnGap 10 8 - 16 mmol/L [facility] Glucose 93 70 - 100 mg/dL [facility] ICA, Actual 4.63 4.40 - 5.20 mg/dL [facility] ICA, pH Corrected 4.63 4.40 - 5.20 mg/dL [facility] Creatinine 1.13 0.70 - 1.25 mg/dL [facility] BICARB 28(H) 22 - 26 mEq/L [facility] eGFR (2020 CKD-EPI) 75 >=60 ml/min/1.7 3m2 [facility] Comment: The estimated glomerular filtration rate (eGFR) was calculated using the CKD-EPI 2020 creatinine equation, which does not include race as a factor. This equation is validated in individuals 18 years of age and older, and eGFR is normalized to a body surface area of 1.73m^2. Sodium 144 135 - 148 mmol/L [facility] Potassium 2.8(AA) 3.5 - 5.3 mmol/L [facility] Comment:Critical Result Low Blood 10/04/2024 2:01 AM MATTING PRESS TENDER 10/04/2024 2:21 AM MATTING PRESS TENDER Narrative [facility] - 10/04/2024 2:12 PM MATTING PRESS TENDER Patient Discharged 10/04/2024 07:12:09 MATTING PRESS TENDER Roxy Harmon MD LABORATORY Edited Result - Final [facility] [address] [place] [address] * CBC WITH PLTS/AUTO DIFF (10/04/2024 2:01 AM MATTING PRESS TENDER) WBC 9.96 4.00 - 10.00 k/cmm [facility] RBC 4.76 4.60 - 6.00 m/cmm [facility] Hgb 14.7 13.1 - 17.5 g/dL [facility] Hematocrit 42.0 40.0 - 51.0 % [facility] MCV 88.2 80.0 - 100.0 fL [facility] MCH 30.9 25.0 - 32.0 pg [facility] MCHC 35.0 31.0 - 36.0 g/dL [facility] RDW 13.8 11.5 - 14.5 % [facility] Plt 200 150 - 400 k/cmm [facility] MPV 10.0 6.5 - 12.5 fL [facility] Automated Abs Neutrophil 5.05 1.70 - 6.50 k/cmm [facility] Comment:Preliminary ANC, Fin al Result to Follow Abs Immature Granulocyte 0.02 0.00 - 0.09 k/cmm [facility] Comment:The Immature Granulo cyte Absolute count contains metamyelocytes and myelocytes. Abs Neutrophil 5.05 1.70 - 6.50 k/cmm [facility] Abs Lymphocyte 3.78 0.80 - 4.00 k/cmm [facility] Abs Monocyte 0.64 0.20 - 1.00 k/cmm [facility] Abs Eosinophil 0.39 0.00 - 0.60 k/cmm [facility] Abs Basophil 0.08 0.00 - 0.20 k/cmm [facility] Blood 10/04/2024 2:01 AM MATTING PRESS TENDER 10/04/2024 2:35 AM MATTING PRESS TENDER Roxy Harmon MD LABORATORY Edited Result - Final [facility] [address] [place] [address] * EXTRA TUBE - DARK GREEN (10/04/2024 2:00 AM MATTING PRESS TENDER) Pathologist [facility] DARK GREEN TUBE Stored [facility] Comment:Dark Green tubes (Li thium Heparin) are stored in the lab for 1 day from the collection date. Blood 10/04/2024 2:00 AM MATTING PRESS TENDER 10/04/2024 2:20 AM MATTING PRESS TENDER us Roxy Harmon MD LABORATORY Final Result Performing Organization Address [facility] de Phone Number [facility] [address] [address] * EXTRA TUBE - LIGHT GREEN (10/04/2024 2:00 AM MATTING PRESS TENDER) LIGHT GREEN TUBE Stored [facility] Comment:Green tubes (Virgil Heparin) are stored in the lab for 3 days from the collection date. Blood 10/04/2024 2:00 AM MATTING PRESS TENDER 10/04/2024 2:20 AM MATTING PRESS TENDER us Roxy Harmon MD LABORATORY Final Result Performing Organization Address [facility] de Phone Number [facility] [address] [address] * EXTRA TUBE - BLUE (10/04/2024 2:00 AM MATTING PRESS TENDER) BLUE TUBE [facility] Comment:Blue top(Sodium citr ate) tubes are kept for 3 days from the collection date. Blood 10/04/2024 2:00 AM MATTING PRESS TENDER 10/04/2024 2:20 AM MATTING PRESS TENDER us Roxy Harmon MD LABORATORY Final Result Performing Organization Address [facility] de Phone Number [facility] [address] [address] * MAGNESIUM (10/04/2024 2:00 AM MATTING PRESS TENDER) Magnesium 2.3 1.6 - 2.6 mg/dL [facility] Blood 10/04/2024 2:00 AM MATTING PRESS TENDER 10/04/2024 4:04 AM MATTING PRESS TENDER us Roxy Harmon MD LABORATORY Final Result [facility] [address] [place] [address] from Last 3 Months
--- OUTSIDE RECORDS SUMMARY | 2024-10-07 13:01 | XMS_ITS | Referral Summary ---
Author Organization [facility] Address [address] [place] [address] Phone Care Team Providers Care Licensed Architect Name Role Phone Unavailable Primary Care Provider Unavailabl e Source Comments [employer] is fully rolled out on [email or web address]. Last update 04/29/09.[facility] Encounters Date Type Department Care Team Description 10/04/2024 Documentation Only Unspecified Department [place] Unknown, Provider 10/04/2024 Documentation Only Unspecified Department [place] Unknown, Provider 10/04/2024 Travel 10/04/2024 1:01 AM CREAM DUMPER - 10/04/2024 7:45 AM [facility] Emergency [facility] [address] [place] [address] Roxy Mak MD Fall, initial encounter Discharge Disposition: Discharged to home or self care from Last 3 Months Allergies No known active allergies Medications * Be aware that medications may not be up to date as of this document. Always verify current medications with patient. acetaminophen (TYLENOL) 500 mg oral tablet Take 1 tablet (500 mg) by mouth every 4 hours as needed for Mild Pain. 30 tablet 10/04/2024 7:05 AM CREAM DUMPER 4 Active ibuprofen (MOTRIN;ADVIL) 600 mg oral tablet Take 1 tablet (600 mg) by mouth 4 times daily as needed for Pain. 30 tablet 10/04/2024 7:05 AM CREAM DUMPER 4 Active oxyCODONE (ROXICODONE) 5 mg oral tablet Take 1 tablet (5 mg) by mouth every 4 hours as needed for Pain. 5 tablet 10/04/2024 7:05 AM CREAM DUMPER 4 10/07/20 24 Active cephalexin (KEFLEX) 500 mg oral capsule Take 1 capsule (500 mg) by mouth 3 times daily for 7 days. 21 capsule 4 10/11/20 24 Active cephalexin (KEFLEX) 500 mg oral capsule Take 1 capsule (500 mg) by mouth 3 times daily for 7 days. 21 capsule 4 10/04/20 24 Discontinued Social History Tobacco Use Types Packs/Day Years Used Date Smoking Tobacco: Never Assessed Sex and Gender Information Value Date Recorded Sex Assigned at Not on file Legal Sex Male 8:12 AM CREAM DUMPER Gender Identity Not on file Sexual Orientation Not on file Last Filed Vital Signs Vital Sign Reading Time Taken Comments Blood Pressure 161/96 10/04/2024 6:26 AM CREAM DUMPER Pulse 83 10/04/2024 6:26 AM CREAM DUMPER Temperature 36.9 ??C (98.4 ??F) 10/04/2024 1:07 AM CS T Respiratory Rate 18 10/04/2024 6:26 AM CREAM DUMPER Oxygen Saturation 94% 10/04/2024 6:26 AM CREAM DUMPER Inhaled Oxygen Concentration - - Weight - - Height - - Body Mass Index - - Plan of Treatment Not on file Procedures Procedure Name Priority Date/Time Associated Diagnosis Comments EXTERNAL MED REC-IMAGING 10/05/2024 7:09 AM CREAM DUMPER EXTERNAL MED REC-IMAGING 10/05/2024 7:[address] OUTSIDE READ HEAD/FACIAL BONES Routine 10/04/2024 2:[address] OUTSIDE READ HEAD/FACIAL BONES Routine 10/04/2024 2:11 AM CREAM DUMPER PC LAB CBC W/DIFF & PLT STAT 10/04/2024 2:01 AM CREAM [facility]ER PC ELECTROLYTES PANEL STAT 10/04/2024 2:01 AM CREAM [facility]MPER MAGNESIUM Routine 10/04/2024 2:00 AM CREAM DUMPER EXTRA TUBE - DARK GREEN Routine 10/04/2024 2:00 AM CREAM DUMPER EXTRA TUBE - BLUE Routine 10/04/2024 2:0 0 AM CREAM DUMPER TC LAB BLOOD DRAW BY VENIPUNCTURE Routine 10/04/2024 2:00 AM CREAM DUMPER from Last 3 Months Results * EXTERNAL MED REC-IMAGING (10/05/2024 7:09 AM CREAM DUMPER) Only the most recent of2 resultswithin the time period is included. Anatomical Region Laterality Modality Other Narrative 10/05/2024 7:09 AM CREAM DUMPER Ordered by an unspecified provider. us Provider Unknown RAD CT BODY Final Result * CT OUTSIDE READ HEAD/FACIAL BONES (10/04/2024 2:11 AM CREAM DUMPER) Only the most recent of2 resultswithin the time period is included. Anatomical Region Laterality Modality Skull Computed Tomogra phy 10/04/2024 3:02 AM CREAM DUMPER Impressions 10/04/2024 8:12 AM CREAM DUMPER Impression: 1. No acute intracranial abnormality. 2. 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 3. Acute fractures of the right orbital floor, right lateral orbital wall, right zygomatic arch and lateral wall of the right maxillary sinus. No evidence of extraocular muscle entrapment. Quentin Traumatic Brain [...] Radiologist: Wendy Baltazar Reading Resident: Lety Cuadra Narrative 10/04/2024 8:12 AM CREAM DUMPER Indication: ??Patient transferred from [facility] due to Trauma. ??No initial report accompanied the patient and/or Dr. ?MAAME MAK requested an interpretation by me. Technique: ??CT scan of the head done on 10/04/2024 without IV contrast. ??3 mm axial and coronal reconstructions reviewed in soft tissue and bone windows, per the local institution's scanning protocols, which may differ from the [facility] trauma protocols. Findings: Chronic encephalomalacia involving the [...] MD - 10/04/2024 Indication: Patient transferred from [facility] due to Trauma.No initial report accompanied the patient and/or Dr. ROXY MAKrequested an interpretation by me. Technique: CT scan of the head done on 10/04/2024 without IV contrast. 3mm axial and coronal reconstructions reviewed in soft tissue and bonewindows, per the local institution's scanning protocols, which may differfrom the [facility] trauma protocols. Findings: Chronic encephalomalacia involving the [...] Wendy Baltazar Reading Resident: Lety Cuadra Roxy Mak MD RAD CT NEURO Final Result * (ABNORMAL) ED CHEMISTRY LABS(NA,K,CL,CO2,GLU,CREAT,CA-IONIZED,ANION GAP) (10/04/2024 2:01 AM CREAM DUMPER) Chloride 106 92 - 108 mmol/L [facility] AnGap 10 8 - 16 mmol/L [facility] Glucose 93 70 - 100 mg/dL [facility] ICA, Actual 4.63 4.40 - 5.20 mg/dL [facility] ICA, pH Corrected 4.63 4.40 - 5.20 mg/dL [facility] Creatinine 1.13 0.70 - 1.25 mg/dL [facility] BICARB 28(H) 22 - 26 mEq/L [facility] eGFR (2020 CKD-EPI) 75 >=60 ml/min/1.7 3m2 [facility] Comment: The estimated glomerular filtration rate (eGFR) was calculated using the CKD-EPI 2020 creatinine equation, which does not include race as a factor. This equation is validated in individuals 18 years of age and older, and eGFR is normalized to a body surface area of 1.73m^2. Sodium 144 135 - 148 mmol/L [facility] Potassium 2.8(AA) 3.5 - 5.3 mmol/L [facility] Comment:Critical Result Low Blood 10/04/2024 2:01 AM CREAM DUMPER 10/04/2024 2:21 AM CREAM DUMPER Narrative [facility] - 10/04/2024 2:12 PM CREAM DUMPER Patient Discharged 10/04/2024 07:12:09 CREAM DUMPER us Roxy Mak MD LABORATORY Edited Result - Final [facility] [address] [id number] * CBC WITH PLTS/AUTO DIFF (10/04/2024 2:01 AM CREAM DUMPER) WBC 9.96 4.00 - 10.00 k/cmm [facility] RBC 4.76 4.60 - 6.00 m/cmm [facility] Hgb 14.7 13.1 - 17.5 g/dL [facility] Hematocrit 42.0 40.0 - 51.0 % [facility] MCV 88.2 80.0 - 100.0 fL [facility] MCH 30.9 25.0 - 32.0 pg [facility] MCHC 35.0 31.0 - 36.0 g/dL [facility] RDW 13.8 11.5 - 14.5 % [facility] Plt 200 150 - 400 k/cmm [facility] MPV 10.0 6.5 - 12.5 fL [facility] Automated Abs Neutrophil 5.05 1.70 - 6.50 k/cmm [facility] Comment:Preliminary ANC, Fin al Result to Follow Abs Immature Granulocyte 0.02 0.00 - 0.09 k/cmm [facility] Comment:The Immature Granulo cyte Absolute count contains metamyelocytes and myelocytes. Abs Neutrophil 5.05 1.70 - 6.50 k/cmm [facility] Abs Lymphocyte 3.78 0.80 - 4.00 k/cmm [facility] Abs Monocyte 0.64 0.20 - 1.00 k/cmm [facility] Abs Eosinophil 0.39 0.00 - 0.60 k/cmm [facility] Abs Basophil 0.08 0.00 - 0.20 k/cmm [facility] Blood 10/04/2024 2:01 AM CREAM DUMPER 10/04/2024 2:35 AM CREAM DUMPER us Roxy Mak MD LABORATORY Edited Result - Final Performing Organization Address [facility] de Phone Number [address] [address] * EXTRA TUBE - DARK GREEN (10/04/2024 2:00 AM CREAM DUMPER) DARK GREEN TUBE Stored [facility] Comment:Dark Green tubes (Li thium Heparin) are stored in the lab for 1 day from the collection date. Blood 10/04/2024 2:00 AM CREAM DUMPER 10/04/2024 2:20 AM CREAM DUMPER us Roxy Mak MD LABORATORY Final Result Performing Organization Address [facility] de Phone Number [facility] [address] [address] * EXTRA TUBE - LIGHT GREEN (10/04/2024 2:00 AM CREAM DUMPER) LIGHT GREEN TUBE Stored [facility] Comment:Green tubes ([place] Heparin) are stored in the lab for 3 days from the collection date. Blood 10/04/2024 2:00 AM CREAM DUMPER 10/04/2024 2:20 AM CREAM DUMPER us Roxy Mak MD LABORATORY Final Result Performing Organization Address [facility] de Phone Number [address] [address] * EXTRA TUBE - BLUE (10/04/2024 2:00 AM CREAM DUMPER) BLUE TUBE [facility] Comment:Blue top(Sodium citr ate) tubes are kept for 3 days from the collection date. Blood 10/04/2024 2:00 AM CREAM DUMPER 10/04/2024 2:20 AM CREAM DUMPER us Roxy Mak MD LABORATORY Final Result [facility] [address] [address] * MAGNESIUM (10/04/2024 2:00 AM CREAM DUMPER) Magnesium 2.3 1.6 - 2.6 mg/dL [facility] Blood 10/04/2024 2:00 AM CREAM DUMPER 10/04/2024 4:04 AM CREAM DUMPER us Roxy Mak MD LABORATORY Final Result [facility] [address] [address] from Last 3 Months
--- OUTSIDE RECORDS SUMMARY | 2024-10-07 13:01 | XMS_ITS | Encounter Summary ---
Author Organization [facility] Address [address] [facility] [place] [address] Phone Care Team Providers Care Traveling Passenger Agent Name Role Phone Unavailable Primary Care Provider Unavailabl e Reason for Visit * Reason Comments Eye Trauma Encounter Details Date Type Department Care Team (Late st Contact Info) Description 10/04/2024 1:01 AM TELESALES TEAM LEADER - 10/04/2024 7:45 AM TELESALES TEAM LEADER [place] [facility] [place] [address] [facility] [address] [place], [place] [id number] Roxy Mak MD [address] [facility] [address] [place] [address] Fall, initial encounter Discharge Disposition: Discharged to home or self care Social History Tobacco Use Types Packs/Day Years Used Date Smoking Tobacco: Never Assessed Sex and Gender Information Value Date Recorded Sex Assigned at Not on file Legal Sex Male 8:12 AM TELESALES TEAM LEADER Gender Identity Not on file Sexual Orientation Not on file documented as of this encounter Last Filed Vital Signs Vital Sign Reading Time Taken Comments Blood Pressure 161/96 10/04/2024 6:26 AM TELESALES TEAM LEADER Pulse 83 10/04/2024 6:26 AM TELESALES TEAM LEADER Temperature 36.9 ??C (98.4 ??F) 10/04/2024 1:07 AM CS T Respiratory Rate 18 10/04/2024 6:26 AM TELESALES TEAM LEADER Oxygen Saturation 94% 10/04/2024 6:26 AM TELESALES TEAM LEADER Inhaled Oxygen Concentration - - Weight - - Height - - Body Mass Index - - documented in this encounter Discharge Instructions * Discharge Instructions* Sharif Mayo MD - 10/04/2024 6:35 AM TELESALES TEAM LEADER Please take your medications as prescribed. Follow up with your primary care physician for further evaluation in the next few days. If you do not have a regular doctor or cannot get in to see your doctor, you can make an appointment with the internal medicine acute care clinic. Return to the ED if your pain or other symptoms worsen or if you experience new symptoms. SALES TEAM LEADER SALES TEAM LEADER documented in this encounter Medications at Time of Discharge acetaminophen (TYLENOL) 500 mg oral tablet Take 1 tablet (500 mg) by mouth every 4 hours as needed for Mild Pain. 30 tablet 10/04/2024 7:05 AM TELESALES TEAM LEADER 10/04/2024 ibuprofen (MOTRIN;ADVIL) 600 mg oral tablet Take 1 tablet (600 mg) by mouth 4 times daily as needed for Pain. 30 tablet 10/04/2024 7:05 AM TELESALES TEAM LEADER 10/04/2024 oxyCODONE (ROXICODONE) 5 mg oral tablet Take 1 tablet (5 mg) by mouth every 4 hours as needed for Pain. 5 tablet 10/04/2024 7:05 AM TELESALES TEAM LEADER 10/04/2024 10/07/2024 cephalexin (KEFLEX) 500 mg oral capsule Take 1 capsule (500 mg) by mouth 3 times daily for 7 days. 21 capsule 10/04/2024 10/11/2024 documented as of this encounter ED Notes * Mary Troncoso - 10/04/2024 1:36 AM CST Pt transferred from [facility]. R wrist fx reduced in [place]. Pos for periorbital fx. Pt received 50 mcg of fentanyl given at 0100. SALES TEAM LEADER * Sharif Mayo MD - 10/04/2024 1:14 AM CST Emergency Department Provider Note Zak Pond : 1965 Sex: male Patient Arrival Date and Time: 10/04/2024 1:01 AM HPI Zak Pond is a 59 y.o. male with a past medical history significant for CVA with right leg weakness who presents to the ED with EMS from an outside hospital with concerns for a traumatic injury.The patient reportedly had a mechanical fall as he was crossing the street and had to run to get through the crosswalk before the light turned red. He tripped and fell secondary to his right leg weakness. At the outside hospital he was noted to have a zygomatic fracture as well as a periorbital fracture. He is not on any blood thinners at this time. He did not lose consciousness when he fell. He also has a known right wrist Colles' fracture that has been reduced and splinted at the outside hospital. A complete 10 point ROS is negative except as indicated in the HPI. The patient's PMHx, SHx, FHx, allergies, and medications were all reviewed with the patient as able. TOMAS Pond is an 59 y.o. male who presents with zygomatic fractures/periorbital fracture/right Colles' fracture. Vital signs unremarkable . Physical examination notable for ecchymosis over the right eye with minimal ecchymosis over the left eye. Patient has enough a known zygomatic fracture as well as a periorbital inferior wall fracture and a right Colles' fracture that is post splint and reduction. We talked to our facial trauma folks and they came to see the patient. Please see their note for further details. We are grateful for their assistance in this patient's care. We did complete a basic lab workincluding a chemistry and CBC. We also gave the patient analgesia with 10 of Oxy as well as 40 millequivalents of potassium to replete his hypokalemia. Magnesium was stable at 2.3. Please see ED course below for further work-up, results, and decision making. ED Course as of 10/05/24221 Sera Oct 04, 2024228 ED Chemistry(!): Chloride 106 AnGap 10 Glucose 93 ICA, Actual 4.63 ICA pH Corrected 4.63 Creatinine 1.13 BICARB 28(!) eGFR (2020 CKD-EPI) 75 Sodium 144 0242 CBC with Plts/Auto Diff: WBC 9.96 RBC 4.76 Hgb 14.7 Hematocrit 42.0 MCV 88.2 MCH 30.9 MCHC 35.0 RDW 13.8 Plt 200 MPV 10.0 Automated Abs Neutrophil 5.05 Abs Immature Granulocyte 0.02 Abs Neutrophil 5.05 Abs Lymphocyte 3.78 Abs Monocyte 0.64 Abs Eosinophil 0.39 Abs Basophil 0.08 0245 Potassium(!!): 2.8 0510 MAGNESIUM: Magnesium 2.3 Mon Oct 05, [address] OUTSIDE READ HEAD/FACIAL BONES 1. No acute intracranial abnormality. 2. 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 3. Acute fractures of the right orbital floor, right lateral orbital wall, right zygomatic arch and lateral wall of the right maxillary sinus. No evidence of extraocular muscle entrapment. Disposition Dispo: Patient remained hemodynamically stable throughout their stay in the ED. Discussed the plan with the patient as described, including complications and follow up. The patient expressed understanding and agreement to the plan. The patient was discharged home in good condition after all questions were answered. Pertinent Physical Exam Findings BP 161/96 (Cuff Location: Left Arm, Patient Position: Sitting) Pulse 83 Temp 36.9 ??C (98.4 ??F) (Oral) Resp 18 SpO2 94% GEN : Alert and conversant EYES : ecchymosis bilaterally over the lids CV : Normal rate. Regular rhythm. No obvious murmur. PULM : Clear to auscultation bilaterally. No wheezes, crackles, or rales bilaterally. Unlabored respiratory effort. IMPRESSION 1. Fracture of right orbital wall (CMS) 2. Closed fracture of right zygomatic arch, initial encounter (CMS) 3. Fall, initial encounter Problems Addressed ??1 acute, complicated injury Data considered Tests Ordered, Independent interpretation of studies, and Consultation obtained Risk of Management Prescription drug management and Decision regarding hospitalization Brad Mayo MD Emergency Medicine PGY2 Dictation Disclaimer: Some notes are completed with voice-recognition dictation software. As a result, there may be errors in the script that have gone undetected. Please contact me via [employer] staff message if you note any errors requiring clarification. SALES TEAM LEADER * Lexus Fung RN - 10/04/2024 12:03 AM CST Incoming report from JORDAN June at [facility] Pt was crossing the street. The light began blinking indicating time was running out. He started torun.He tripped and fell. Has right leg weakness due to previous stroke. Fell forward hurting her wrist. Arrived at hospital found to have right wist fracture. Hit his forehead. No LOC. Has a zygomatic fracture and periorbital fracture. He is not on thinners. He had sedation of the wrist that included: 100 prop, 1000 mg Tylenol, 5mg Oxy, 250 fluids. Will have 18 RAC SALES TEAM LEADER documented in this encounter Miscellaneous Notes * ED Faculty Note - Roxy Mak MD - 10/04/2024 1:17 AM CST Images from the original note were not included. ED Faculty Attestation and Note Zak Pond : 1965 Sex: male Patient Arrival Date and Time: 10/04/2024 1:01 AM FACULTY ATTESTATION I personally saw the patient, performed critical or weber portions of the service, and discussed the care with the resident MDM / ED Course Zak Pond presented to the emergency department with orbital fx. Pt transferred from [facility] afterreporting he tripped and fell. Endorses R leg weakness due to previous stroke. Pt found to have zygomatic fx and periorbital fx. Pmhx of HFrEF, acute respiratory failure, ischemic stroke, MDD. Problems Addressed / DDx ??1 acute, complicated injury Data considered Tests Ordered, Additional tests considered but not ordered, and Consultation obtained Risk of patient management Prescription drug management, Decision regarding surgery or procedure, and Decision regarding hospitalization Facial trauma Scribed for Roxy Mak MD by Roberta Mcallister Scribe, 10/04/2024 1:17 AM IEden James R, MD have reviewed the initial documentation provided by the scribe and affirm that it is an accurate restatement of my dictated record of services. Signed: Roxy Mak MD, 01:17112/04/2023 SALES TEAM LEADER documented in this encounter Plan of Treatment Not on file documented as of this encounter Procedures Procedure Name Priority Date/Time Associated Diagnosis Comments CT OUTSIDE READ HEAD/FACIAL BONES Routine 10/04/2024 2:11 AM TELESALES TEAM LEADER CT OUTSIDE READ HEAD/FACIAL BONES Routine 10/04/2024 2:11 AM TELESALES TEAM LEADER PC ELECTROLYTES PANEL STAT 10/04/2024 2:01 AM TELESALES TEAM LEADER PC LAB CBC W/DIFF & PLT STAT 10/04/2024 2:01 AM TELESALES TEAM LEADER EXTRA TUBE - DARK GREEN Routine 10/04/2024 2:00 AM TELESALES TEAM LEADER TC LAB BLOOD DRAW BY VENIPUNCTURE Routine 10/04/2024 2:00 AM TELESALES TEAM LEADER EXTRA TUBE - BLUE Routine 10/04/2024 2:0 0 AM TELESALES TEAM LEADER MAGNESIUM Routine 10/04/2024 2:00 AM TELESALES TEAM LEADER documented in this encounter Results * CT OUTSIDE READ HEAD/FACIAL BONES (10/04/2024 2:11 AM TELESALES TEAM LEADER) Anatomical Region Laterality Modality Skull Computed Tomogra phy 10/04/2024 3:02 AM TELESALES TEAM LEADER Impressions 10/04/2024 8:12 AM TELESALES TEAM LEADER Impression: 1. No acute intracranial abnormality. 2. [...] Radiologist: Wendy Baltazar Reading Resident: Lety Cuadra 10/04/2024 8:12 AM TELESALES TEAM LEADER Indication: ??Patient transferred from [facility] due to Trauma. ??No initial report accompanied the patient and/or Dr. ??ROXY MAK requested an interpretation by me. Technique: ??CT scan of the head done on 10/04/2024 without IV contrast. ??3 mm axial and coronal reconstructions reviewed in soft tissue and bone windows, per the local institution's scanning protocols, which may differ from the [facility] [place]. Findings: Chronic encephalomalacia involving the [...] MD - 10/04/2024 Indication: Patient transferred from [facility] due to Trauma.No initial report accompanied the patient and/or Dr. ROXY MAKrequested an interpretation by me. Technique: CT scan of the head done on 10/04/2024 without IV contrast. 3mm axial and coronal reconstructions reviewed in soft tissue and bonewindows, per the local institution's scanning protocols, which may differfrom the [facility] [place]. Findings: Chronic encephalomalacia involving the [...] Reading Radiologist: Wendy Baltazar Resident: Lety Cuadra us oRxy Mak MD RAD CT NEURO Final Result * CT OUTSIDE READ HEAD/FACIAL BONES (10/04/2024 2:11 AM TELESALES TEAM LEADER) Anatomical Region Laterality Modality Skull Computed Tomogra phy 10/04/2024 2:51 AM TELESALES TEAM LEADER Impressions 10/04/2024 8:10 AM TELESALES TEAM LEADER Impression: Acute depressed fractures of the right orbital floor. Mildly displaced fracture of right lateral orbital wall, and the lateral wall of the right maxillary sinus. Nondisplaced fracture of right zygomatic arch. No evidence of inferior extraocular muscle entrapment. I have personally reviewed the image(s) and initial interpretation, and I agree with the findings as documented by the resident/fellow. Reading Radiologist: Wendy Baltazar Resident: Lety Cuadra Narrative 10/04/2024 8:10 AM TELESALES TEAM LEADER Indication: ??Patient transferred from [facility] due to Trauma. ??No initial report accompanied the patient and/or DrAlexandre ?MAAME MAK requested an interpretation by me. Technique: ??CT scan of the facial bone done on 10/04/2024 without IV contrast. ??3 mm axial and coronal reconstructions reviewed in soft tissue and bone windows, per the local institution's scanning protocols, which may differ from the [facility] [place]. Findings: ??Right periorbital swelling. Minimally displaced fractures the right orbital floor, the right lateral orbital wall and the lateral wall of the right maxillary sinus. No evidence of extraocular muscle entrapment. Nondisplaced fracture of right zygomatic arch. The cribriform plate appears intact.Alignment of the facial bones appears normal. There is no hematoma, soft tissue mass or gas visualized within the orbits. Review of visualized dentition does not reveal ??significant periapical dental disease. The visualized portions of the paranasal sinuses are clear. Partial opacification of the left mastoid air cells. Edentulous. Procedure Note Wendy Baltazar MD - 10/04/2024 Indication: Patient transferred from [facility] due to Trauma.No initial report accompanied the patient and/or Dr. ROXY MAKrequested an interpretation by me. Technique: CT scan of the facial bone done on 10/04/2024 without IVcontrast. 3 mm axial and coronal reconstructions reviewed in soft tissueand bone windows, per the local institution's scanning protocols, whichmay differ from the [facility] [place]. Findings: Right periorbital swelling. Minimally displaced fractures theright orbital floor, the right lateral orbital wall and the lateral wallof the right maxillary sinus. No evidence of extraocular muscleentrapment. Nondisplaced fracture of right zygomatic arch. The cribriformplate appears intact.Alignment of the facial bones appears normal. There is no hematoma, soft tissue mass or gas visualized within theorbits. Review of visualized dentition does not reveal significantperiapical dental disease. The visualized portions of the paranasalsinuses are clear. Partial opacification of the left mastoid air cells.Edentulous. IMPRESSION Impression: Acute depressed fractures of the right orbital floor. Mildlydisplaced fracture of right lateral orbital wall, and the lateral wall ofthe right maxillary sinus. Nondisplaced fracture of right zygomatic arch.No evidence of inferior extraocular muscle entrapment. I have personally reviewed the image(s) and initial interpretation, and Iagree with the findings as documented by the resident/fellow. Reading Radiologist: Wendy Baltazar Reading Resident: Lety Cuadra Roxy Mak MD RAD CT NEURO Final Result * CBC WITH PLTS/AUTO DIFF (10/04/2024 2:01 AM TELESALES TEAM LEADER) WBC 9.96 4.00 - 10.00 k/cmm [facility] RBC 4.76 4.60 - 6.00 m/cmm [facility] Hgb 14.7 13.1 - 17.5 g/dL [facility] Hematocrit 42.0 40.0 - 51.0 % [facility] MCV 88.2 80.0 - 100.0 fL [facility] MCH 30.9 25.0 - 32.0 pg [facility] MCHC 35.0 31.0 - 36.0 g/dL [facility] RDW 13.8 11.5 - 14.5 % [facility] Plt 200 150 - 400 k/cmm [facility] MPV 10.0 6.5 - 12.5 fL [facility] Automated Abs Neutrophil 5.05 1.70 - 6.50 k/cmm [facility] Comment:Preliminary ANC, Fin al Result to Follow Abs Immature Granulocyte 0.02 0.00 - 0.09 k/cmm [facility] Comment:The Immature Granulo cyte Absolute count contains metamyelocytes and myelocytes. Abs Neutrophil 5.05 1.70 - 6.50 k/cmm [facility] Abs Lymphocyte 3.78 0.80 - 4.00 k/cmm [facility] Abs Monocyte 0.64 0.20 - 1.00 k/cmm [facility] Abs Eosinophil 0.39 0.00 - 0.60 k/cmm [facility] Abs Basophil 0.08 0.00 - 0.20 k/cmm [facility] Blood 10/04/2024 2:01 AM TELESALES TEAM LEADER 10/04/2024 2:35 AM TELESALES TEAM LEADER Roxy Mak MD LABORATORY Edited Result - Final [facility] [address] [place] [address] * (ABNORMAL) ED CHEMISTRY LABS(NA,K,CL,CO2,GLU,CREAT,CA-IONIZED,ANION GAP) (10/04/2024 2:01 AM TELESALES TEAM LEADER) Chloride 106 92 - 108 mmol/L [facility] AnGap 10 8 - 16 mmol/L [facility] Glucose 93 70 - 100 mg/dL [facility] ICA, Actual 4.63 4.40 - 5.20 mg/dL [facility] ICA, pH Corrected 4.63 4.40 - 5.20 mg/dL [facility] Creatinine 1.13 0.70 - 1.25 mg/dL [facility] BICARB 28(H) 22 - 26 mEq/L [facility] eGFR (2020 CKD-EPI) 75 >=60 ml/min/1.7 3m2 [facility] Comment: The estimated glomerular filtration rate (eGFR) was calculated using the CKD-EPI 2020 creatinine equation, which does not include race as a factor. This equation is validated in individuals 18 years of age and older, and eGFR is normalized to a body surface area of 1.73m^2. Sodium 144 135 - 148 mmol/L [facility] Potassium 2.8(AA) 3.5 - 5.3 mmol/L [facility] Comment:Critical Result Low Blood 10/04/2024 2:01 AM TELESALES TEAM LEADER 10/04/2024 2:21 AM TELESALES TEAM LEADER Narrative [facility] - 10/04/2024 2:12 PM TELESALES TEAM LEADER Patient Discharged 10/04/2024 07:12:09 TELESALES TEAM LEADER us Roxy Mak MD LABORATORY Edited Result - Final [facility] [address] [address] * MAGNESIUM (10/04/2024 2:00 AM TELESALES TEAM LEADER) Magnesium 2.3 1.6 - 2.6 mg/dL [facility] Blood 10/04/2024 2:00 AM TELESALES TEAM LEADER 10/04/2024 4:04 AM TELESALES TEAM LEADER us Roxy Mak MD LABORATORY Final Result Performing Organization Address [facility] Co de Phone Number [address] [address] * EXTRA TUBE - DARK GREEN (10/04/2024 2:00 AM TELESALES TEAM LEADER) DARK GREEN TUBE Stored [facility] Comment:Dark Green tubes (Li thium Heparin) are stored in the lab for 1 day from the collection date. Blood 10/04/2024 2:00 AM TELESALES TEAM LEADER 10/04/2024 2:20 AM TELESALES TEAM LEADER us Roxy Mak MD LABORATORY Final Result Performing Organization Address [facility] de Phone Number [address] [address] * EXTRA TUBE - BLUE (10/04/2024 2:00 AM TELESALES TEAM LEADER) BLUE TUBE [facility] Comment:Blue top(Sodium citr ate) tubes are kept for 3 days from the collection date. Blood 10/04/2024 2:00 AM TELESALES TEAM LEADER 10/04/2024 2:20 AM TELESALES TEAM LEADER us Roxy Mak MD LABORATORY Final Result Performing Organization Address [facility] de Phone Number [address] [address] * EXTRA TUBE - LIGHT GREEN (10/04/2024 2:00 AM TELESALES TEAM LEADER) LIGHT GREEN TUBE Stored [facility] Comment:Green tubes ([place] Heparin) are stored in the lab for 3 days from the collection date. Blood 10/04/2024 2:00 AM TELESALES TEAM LEADER 10/04/2024 2:20 AM TELESALES TEAM LEADER us Roxy Mak MD LABORATORY Final Result Performing Organization Address [facility] Co de Phone Number [address] [address] documented in this encounter Visit Diagnoses Diagnosis Fracture of right orbital wall (CMS)- Primary Closed fracture of right zygomatic arch, initial encounter (CMS) Fall, initial encounter documented in this encounter Administered Medications Inactive Administered Medications - up to 3 most recent administrations Medication Order MAR Action Action Date Dose Rate Site oxyCODONE (ROXICODONE) tablet 10 mg 10 mg, Oral, ONE TIME, 1 dose, On 10/04/24 at 0150 Given 10/04/2024 1:52 AM TELESALES TEAM LEADER 10 mg oxyCODONE (ROXICODONE) tablet 10 mg 10 mg, Oral, ONE TIME, 1 dose, On 10/04/24 at 0445 Given 10/04/2024 4:47 AM TELESALES TEAM LEADER 10 mg potassium chloride (K-ALISSA) powder 40 mEq 40 mEq, Oral, ONE TIME, 1 dose, On 10/04/24 at 0250 Given 10/04/2024 2:52 AM TELESALES TEAM LEADER 40 mEq documented in this encounter Active and Recently Administered Medications Times are shown in TELESALES TEAM LEADER. Scheduled Medication Order 10/02/2024 10/03/2024 10/04/2024 oxyCODONE (ROXICODONE) tablet 10 mg (COMPLETED) 10 mg, Oral, ONE TIME, 1 dose, On 10/04/24 at 0150 0152 (Given - Provid er: Marci Sinclair RN) oxyCODONE (ROXICODONE) tablet 10 mg (COMPLETED) 10 mg, Oral, ONE TIME, 1 dose, On 10/04/24 at 0445 0447 (Given - Provid er: Mary Troncoso) potassium chloride (K-ALISSA) powder 40 mEq (COMPLETED) 40 mEq, Oral, ONE TIME, 1 dose, On 10/04/24 at 0250 0252 (Given - Provid er: Marci Sinclair RN) documented in this encounter
--- OUTSIDE RECORDS SUMMARY | 2024-10-07 13:01 | XMS_ITS | Encounter Summary ---
Author Organization [facility] Address [address] [place] [id number] Phone Care Team Providers Care Schedule Planning Manager Name Role Phone Unavailable Primary Care Provider Unavailabl e Encounter Details Date Type Department Care Team (Late st Contact Info) Description 10/04/2024 Documentation Only Unspecified Department [place] Unknown, Provider Social History Tobacco Use Types Packs/Day Years Used Date Smoking Tobacco: Never Assessed Sex and Gender Information Value Date Recorded Sex Assigned at Not on file Legal Sex Male 8:12 AM HEAD OPERATOR SULFIDE Gender Identity Not on file Sexual Orientation Not on file documented as of this encounter Plan of Treatment Not on file documented as of this encounter Procedures Procedure Name Priority Date/Time Associated Diagnosis Comments EXTERNAL MED REC-IMAGING 10/05/2024 7:09 AM HEAD OPERATOR SULFIDE documented in this encounter Results * EXTERNAL MED REC-IMAGING (10/05/2024 7:09 AM HEAD OPERATOR SULFIDE) Anatomical Region Laterality Modality Other Narrative 10/05/2024 7:09 AM HEAD OPERATOR SULFIDE Ordered by an unspecified provider. us Provider Unknown RAD CT BODY Final Result documented in this encounter Visit Diagnoses Not on filedocumented in this encounter
--- OUTSIDE RECORDS SUMMARY | 2024-10-07 13:01 | XMS_ITS | Encounter Summary ---
Author Organization [facility] [place] Address [address] [place] [id number] Phone Care Team Providers Care Route Sales Trainee Name Role Phone Unavailable Primary Care Provider Unavailabl e Encounter Details Date Type Department Care Team (Late st Contact Info) Description 10/04/2024 Documentation Only Unspecified Department [place] Unknown, Provider Social History Tobacco Use Types Packs/Day Years Used Date Smoking Tobacco: Never Assessed Sex and Gender Information Value Date Recorded Sex Assigned at Not on file Legal Sex Male 8:12 AM ODD SHOE EXAMINER Gender Identity Not on file Sexual Orientation Not on file documented as of this encounter Plan of Treatment Not on file documented as of this encounter Procedures Procedure Name Priority Date/Time Associated Diagnosis Comments EXTERNAL MED REC-IMAGING 10/05/2024 7:09 AM ODD SHOE EXAMINER documented in this encounter Results * EXTERNAL MED REC-IMAGING (10/05/2024 7:09 AM ODD SHOE EXAMINER) Anatomical Region Laterality Modality Other Narrative 10/05/2024 7:09 AM ODD SHOE EXAMINER Ordered by an unspecified provider. us Provider Unknown RAD CT BODY Final Result documented in this encounter Visit Diagnoses Not on filedocumented in this encounter
== END 2024-10-07 12:58 | disposition home or self-care (01) ==
LOC: NFLDREF 12:59
PROVIDERS: Visit Provider Family Medicine
DX: N18.9 Chronic kidney disease, unspecified (principal); Z01.818 Encounter for other preprocedural examination
CPT/HCPCS: 80053

== ENCOUNTER 2024-10-08 11:44 | Day surgery (SDC) | payer MEDICARE, SELFPAY ==
[2024-10-08] VITALS (7 sets, daily range): BP systolic 108–148; BP diastolic 74–91; PULSE 62–81; RESP 16; TEMP 36.4–36.8; O2SAT 95–97; BMI 19.9
--- OUTSIDE RECORDS SUMMARY | 2024-10-08 11:48 | XMS_ITS | Referral Summary ---
Author Organization [facility] Address [address] [place] [address] Phone Care Team Providers Care Business Objects Analyst Name Role Phone Unavailable Primary Care Provider Unavailabl e Source Comments fluid Operations Systems is fully rolled out on [employer]. Last update 04/29/09.[facility] Encounters Date Type Department Care Team Description 10/04/2024 Documentation Only Unspecified Department [place] Unknown, Provider 10/04/2024 Documentation Only Unspecified Department [place] Unknown, Provider 10/04/2024 Travel 10/04/2024 1:01 AM LIBRARY CATALOGING TECHNICIAN - 10/04/2024 7:45 AM [facility] Emergency [facility] Emergency Department [address] [place] [address] Roxy Mak MD Fall, initial encounter Discharge [...] Mild Pain. 30 tablet 10/04/2024 7:05 AM LIBRARY CATALOGING TECHNICIAN 4 Active ibuprofen (MOTRIN;ADVIL) 600 mg oral tablet Take 1 tablet (600 mg) by mouth 4 times daily as needed for Pain. 30 tablet 10/04/2024 7:05 AM LIBRARY CATALOGING TECHNICIAN 4 Active cephalexin (KEFLEX) 500 mg oral capsule Take 1 capsule (500 mg) by mouth 3 times daily for 7 days. 21 capsule 4 10/11/20 24 Active oxyCODONE (ROXICODONE) 5 mg oral tablet Take 1 tablet (5 mg) by mouth every 4 hours as needed for Pain. 5 tablet 10/04/2024 7:05 AM LIBRARY CATALOGING TECHNICIAN 4 10/07/20 24 cephalexin (KEFLEX) 500 mg oral capsule Take 1 capsule (500 mg) by mouth 3 times daily for 7 days. 21 capsule 4 10/04/20 24 Discontinued Social History Tobacco Use Types Packs/Day Years Used Date Smoking Tobacco: Never Assessed Sex and Gender Information Value Date Recorded Sex Assigned at Not on file Legal Sex Male 8:12 AM LIBRARY CATALOGING TECHNICIAN Gender Identity Not on file Sexual Orientation Not on file Last Filed Vital Signs Vital Sign Reading Time Taken Comments Blood Pressure 161/96 10/04/2024 6:26 AM LIBRARY CATALOGING TECHNICIAN Pulse 83 10/04/2024 6:26 AM LIBRARY CATALOGING TECHNICIAN Temperature 36.9 ??C (98.4 ??F) 10/04/2024 1:07 AM CS T Respiratory Rate 18 10/04/2024 6:26 AM LIBRARY CATALOGING TECHNICIAN Oxygen Saturation 94% 10/04/2024 6:26 AM LIBRARY CATALOGING TECHNICIAN Inhaled Oxygen Concentration - - Weight - - Height - - Body Mass Index - - Plan of Treatment Not on file Procedures Procedure Name Priority Date/Time Associated Diagnosis Comments EXTERNAL MED REC-IMAGING 10/05/2024 7:09 AM LIBRARY CATALOGING TECHNICIAN EXTERNAL MED REC-IMAGING 10/05/2024 7:09 AM LIBRARY CATALOGING TECHNICIAN CT OUTSIDE READ HEAD/FACIAL BONES Routine 10/04/2024 2:11 [address] LIBRARY CATALOGING TECHNICIAN CT OUTSIDE READ HEAD/FACIAL BONES Routine 10/04/2024 2:11 AM LIBRARY CATALOGING TECHNICIAN PC LAB CBC W/DIFF & PLT STAT 10/04/2024 2:01 AM LIBRARY CATALOGING TECHNICIAN PC ELECTROLYTES PANEL STAT 10/04/2024 2:01 AM LIBRARY CATALOGING TECHNICIAN MAGNESIUM Routine 10/04/2024 2:00 AM LIBRARY CATALOGING TECHNICIAN EXTRA TUBE - DARK GREEN Routine 10/04/2024 2:00 AM LIBRARY CATALOGING TECHNICIAN EXTRA TUBE - BLUE Routine 10/04/2024 2:0 0 AM LIBRARY CATALOGING TECHNICIAN TC LAB BLOOD DRAW BY VENIPUNCTURE Routine 10/04/2024 2:00 AM LIBRARY CATALOGING TECHNICIAN from Last 3 Months Results * EXTERNAL MED REC-IMAGING (10/05/2024 7:09 AM LIBRARY CATALOGING TECHNICIAN) Only the most recent of2 resultswithin the time period is included. Anatomical Region Laterality Modality Other Narrative 10/05/2024 7:09 AM LIBRARY CATALOGING TECHNICIAN Ordered by an unspecified provider. us Provider Unknown RAD CT BODY Final Result * CT OUTSIDE READ HEAD/FACIAL BONES (10/04/2024 2:11 AM LIBRARY CATALOGING TECHNICIAN) Only the most recent of2 resultswithin the time period is included. Anatomical Region Laterality Modality Skull Computed Tomogra phy 10/04/2024 3:02 AM LIBRARY CATALOGING TECHNICIAN Impressions 10/04/2024 8:12 AM LIBRARY CATALOGING TECHNICIAN Impression: 1. No acute intracranial abnormality. 2. [...] Resident: Lety Cuadra Narrative 10/04/2024 8:12 AM LIBRARY CATALOGING TECHNICIAN Indication: ??Patient transferred from [facility] due to Trauma. ??No initial report accompanied the patient and/or Dr. ?MAAME MAK requested an interpretation by me. Technique: ??CT scan of the head done on 10/04/2024 without IV contrast. ??3 mm axial and coronal reconstructions reviewed in soft tissue and bone windows, per the local institution's scanning protocols, which may differ from the [facility] trauma protocols. Findings: Chronic encephalomalacia involving the [...] MD - 10/04/2024 Indication: Patient transferred from [facility] due to Trauma.No initial report accompanied the patient and/or Dr. ROXY MAKrequested an interpretation by me. Technique: CT scan of the head done on 10/04/2024 without IV contrast. 3mm axial and coronal reconstructions reviewed in soft tissue and bonewindows, per the local institution's scanning protocols, which may differfrom the [facility] trauma protocols. Findings: Chronic encephalomalacia involving the [...] ED CHEMISTRY LABS(NA,K,CL,CO2,GLU,CREAT,CA-IONIZED,ANION GAP) (10/04/2024 2:01 AM LIBRARY CATALOGING TECHNICIAN) Chloride 106 92 - 108 mmol/L [facility] AnGap 10 8 - 16 mmol/L [facility] Glucose 93 70 - 100 mg/dL [facility] ICA, Actual 4.63 4.40 - 5.20 mg/dL [facility] ICA, pH Corrected 4.63 4.40 - 5.20 mg/dL [facility] Creatinine 1.13 0.70 - 1.25 mg/dL [facility] BICARB 28(H) 22 - 26 mEq/L [facility] eGFR (2020 CKD-EPI) 75 >=60 ml/min/1.7 3m2 [facility] Comment: The estimated glomerular filtration rate (eGFR) was calculated using the CKD-EPI 2020 creatinine equation, which does not include race as a factor. This equation is validated in individuals 18 years of age and older, and eGFR is normalized to a body surface area of 1.73m^2. Sodium 144 135 - 148 mmol/L [facility] Potassium 2.8(AA) 3.5 - 5.3 mmol/L [facility] Comment:Critical Result Low Blood 10/04/2024 2:01 AM LIBRARY CATALOGING TECHNICIAN 10/04/2024 2:21 AM LIBRARY CATALOGING TECHNICIAN Narrative [facility] - 10/04/2024 2:12 PM LIBRARY CATALOGING TECHNICIAN Patient Discharged 10/04/2024 07:12:09 LIBRARY CATALOGING TECHNICIAN us Roxy Mak MD LABORATORY Edited Result - Final [facility] [address] [address] * CBC WITH PLTS/AUTO DIFF (10/04/2024 2:01 AM LIBRARY CATALOGING TECHNICIAN) WBC 9.96 4.00 - 10.00 k/cmm [facility] RBC 4.76 4.60 - 6.00 m/cmm [facility] Hgb 14.7 13.1 - 17.5 g/dL [facility] Hematocrit 42.0 40.0 - 51.0 % [facility] MCV 88.2 80.0 - 100.0 fL [facility] MCH 30.9 25.0 - 32.0 pg [facility] MCHC 35.0 31.0 - 36.0 g/dL [facility] RDW 13.8 11.5 - 14.5 % [facility] Plt 200 150 - 400 k/cmm [facility] MPV 10.0 6.5 - 12.5 fL [facility] Automated Abs Neutrophil 5.05 1.70 - 6.50 k/cmm [facility] Comment:Preliminary ANC, Fin al Result to Follow Abs Immature Granulocyte 0.02 0.00 - 0.09 k/cmm [facility] Comment:The Immature Granulo cyte Absolute count contains metamyelocytes and myelocytes. Abs Neutrophil 5.05 1.70 - 6.50 k/cmm [facility] Abs Lymphocyte 3.78 0.80 - 4.00 k/cmm [facility] Abs Monocyte 0.64 0.20 - 1.00 k/cmm [facility] Abs Eosinophil 0.39 0.00 - 0.60 k/cmm [facility] Abs Basophil 0.08 0.00 - 0.20 k/cmm [facility] Blood 10/04/2024 2:01 AM LIBRARY CATALOGING TECHNICIAN 10/04/2024 2:35 AM LIBRARY CATALOGING TECHNICIAN us Roxy Mak MD LABORATORY Edited Result - Final Performing Organization Address [facility] de Phone Number [address] [address] * EXTRA TUBE - DARK GREEN (10/04/2024 2:00 AM LIBRARY CATALOGING TECHNICIAN) DARK GREEN TUBE Stored [facility] Comment:Dark Green tubes (Li thium Heparin) are stored in the lab for 1 day from the collection date. Blood 10/04/2024 2:00 AM LIBRARY CATALOGING TECHNICIAN 10/04/2024 2:20 AM LIBRARY CATALOGING TECHNICIAN us Roxy Mak MD LABORATORY Final Result Performing Organization Address [facility] de Phone Number [facility] [address] [address] * EXTRA TUBE - LIGHT GREEN (10/04/2024 2:00 AM LIBRARY CATALOGING TECHNICIAN) LIGHT GREEN TUBE Stored [facility] Comment:Green tubes ([place] Heparin) are stored in the lab for 3 days from the collection date. Blood 10/04/2024 2:00 AM LIBRARY CATALOGING TECHNICIAN 10/04/2024 2:20 AM LIBRARY CATALOGING TECHNICIAN us Roxy Mak MD LABORATORY Final Result Performing Organization Address [facility] de Phone Number [address] [address] * EXTRA TUBE - BLUE (10/04/2024 2:00 AM LIBRARY CATALOGING TECHNICIAN) BLUE TUBE [facility] Comment:Blue top(Sodium citr ate) tubes are kept for 3 days from the collection date. Blood 10/04/2024 2:00 AM LIBRARY CATALOGING TECHNICIAN 10/04/2024 2:20 AM LIBRARY CATALOGING TECHNICIAN us Roxy Mak MD LABORATORY Final Result Performing Organization Address [facility]/ZIP Co de Phone Number [facility] [address] [address] * MAGNESIUM (10/04/2024 2:00 AM LIBRARY CATALOGING TECHNICIAN) Magnesium 2.3 1.6 - 2.6 mg/dL [facility] Blood 10/04/2024 2:00 AM LIBRARY CATALOGING TECHNICIAN 10/04/2024 4:04 AM LIBRARY CATALOGING TECHNICIAN Roxy Mak MD LABORATORY Final Result [facility] [address] [address] from Last 3 Months
--- OUTSIDE RECORDS SUMMARY | 2024-10-08 11:48 | XMS_ITS | Encounter Summary ---
Author Organization [facility] Address [address] [place] [address] Phone Care Team Providers Care Bag Grader Name Role Phone Unavailable Primary Care Provider Unavailabl e Reason for Visit * Reason Comments Eye Trauma Encounter Details Date Type Department Care Team (Late st Contact Info) Description 10/04/2024 1:01 AM BLACKSMITH ASSISTANT - 10/04/2024 7:45 AM BLACKSMITH ASSISTANT Emergency [facility] Emergency Department [address] [place], [place] [id number] Roxy Mak MD [address] [facility] [address] [place] [address] Fall, initial encounter Discharge Disposition: Discharged to home or self care Social History Tobacco Use Types Packs/Day Years Used Date Smoking Tobacco: Never Assessed Sex and Gender Information Value Date Recorded Sex Assigned at Not on file Legal Sex Male 8:12 AM BLACKSMITH ASSISTANT Gender Identity Not on file Sexual Orientation Not on file documented as of this encounter Last Filed Vital Signs Vital Sign Reading Time Taken Comments Blood Pressure 161/96 10/04/2024 6:26 AM BLACKSMITH ASSISTANT Pulse 83 10/04/2024 6:26 AM BLACKSMITH ASSISTANT Temperature 36.9 ??C (98.4 ??F) 10/04/2024 1:07 AM CS T Respiratory Rate 18 10/04/2024 6:26 AM BLACKSMITH ASSISTANT Oxygen Saturation 94% 10/04/2024 6:26 AM BLACKSMITH ASSISTANT Inhaled Oxygen Concentration - - Weight - - Height - - Body Mass Index - - documented in this encounter Discharge Instructions * Discharge Instructions* Sharif Myao MD - 10/04/2024 6:35 AM BLACKSMITH ASSISTANT Please take your medications as prescribed. Follow [...] worsen or if you experience new symptoms. KSMITH ASSISTANT KSMITH ASSISTANT documented in this encounter Medications at Time of Discharge acetaminophen (TYLENOL) 500 mg oral tablet Take 1 tablet (500 mg) by mouth every 4 hours as needed for Mild Pain. 30 tablet 10/04/2024 7:05 AM BLACKSMITH ASSISTANT 10/04/2024 ibuprofen (MOTRIN;ADVIL) 600 mg oral tablet Take 1 tablet (600 mg) by mouth 4 times daily as needed for Pain. 30 tablet 10/04/2024 7:05 AM BLACKSMITH ASSISTANT 10/04/2024 cephalexin (KEFLEX) 500 mg oral capsule Take 1 capsule (500 mg) by mouth 3 times daily for 7 days. 21 capsule 10/04/2024 10/11/2024 oxyCODONE (ROXICODONE) 5 mg oral tablet Take 1 tablet (5 mg) by mouth every 4 hours as needed for Pain. 5 tablet 10/04/2024 7:05 AM BLACKSMITH ASSISTANT 10/04/2024 10/07/2024 documented as of this encounter ED Notes * Mary Troncoso - 10/04/2024 1:36 AM CST Pt transferred from [facility]. R wrist fx reduced in [place]. Pos for periorbital fx. Pt received 50 mcg of fentanyl given at 0100. KSMITH ASSISTANT * Sharif Mayo MD - 10/04/2024 1:14 [...] have gone undetected. Please contact me via [employer] staff message if you note any errors requiring clarification. KSMITH ASSISTANT * Lexus Fung RN - 10/04/2024 12:03 AM CST Incoming report from JORDAN June at [facility] Pt was crossing the street. The light [...] Oxy, 250 fluids. Will have 18 RAC KSMITH ASSISTANT documented in this encounter Miscellaneous Notes * [...] of services. Signed: Roxy Mak MD, 01:17112/04/2023 KSMITH ASSISTANT documented in this encounter Plan of Treatment Not on file documented as of this encounter Procedures Procedure Name Priority Date/Time Associated Diagnosis Comments CT OUTSIDE READ HEAD/FACIAL BONES Routine 10/04/2024 2:[address] OUTSIDE READ HEAD/FACIAL BONES Routine 10/04/2024 2:11 AM BLACKSMITH ASSISTANT PC ELECTROLYTES PANEL STAT 10/04/2024 2:01 AM BLACKSMITH ASSISTANT PC LAB CBC W/DIFF & PLT STAT 10/04/2024 2:01 AM BLACKSMITH ASSISTANT EXTRA TUBE - DARK GREEN Routine 10/04/2024 2:00 AM BLACKSMITH ASSISTANT TC LAB BLOOD DRAW BY VENIPUNCTURE Routine 10/04/2024 2:00 AM BLACKSMITH ASSISTANT EXTRA TUBE - BLUE Routine 10/04/2024 2:0 0 AM BLACKSMITH ASSISTANT MAGNESIUM Routine 10/04/2024 2:00 AM BLACKSMITH ASSISTANT documented in this encounter Results * CT OUTSIDE READ HEAD/FACIAL BONES (10/04/2024 2:11 AM BLACKSMITH ASSISTANT) Anatomical Region Laterality Modality Skull Computed Tomogra phy 10/04/2024 3:02 AM BLACKSMITH ASSISTANT Impressions 10/04/2024 8:12 AM BLACKSMITH ASSISTANT Impression: 1. No acute intracranial abnormality. 2. [...] Reading Resident: Lety Cuadra 10/04/2024 8:12 AM BLACKSMITH ASSISTANT Indication: ??Patient transferred from [facility] due to Trauma. ??No initial report accompanied the patient and/or Dr. ??ROXY MAK requested an interpretation by me. Technique: ??CT scan of the head done on 10/04/2024 without IV contrast. ??3 mm axial and coronal reconstructions reviewed in soft tissue and bone windows, per the local institution's scanning protocols, which may differ from the [facility] trauma protocols. Findings: Chronic [...] MD - 10/04/2024 Indication: Patient transferred from [facility] due to Trauma.No initial report accompanied the patient and/or Dr. ROXY MAKrequested an interpretation by me. Technique: CT scan of the head done on 10/04/2024 without IV contrast. 3mm axial and coronal reconstructions reviewed in soft tissue and bonewindows, per the local institution's scanning protocols, which may differfrom the [facility] trauma protocols. Findings: Chronic [...] OUTSIDE READ HEAD/FACIAL BONES (10/04/2024 2:11 AM BLACKSMITH ASSISTANT) Anatomical Region Laterality Modality Skull Computed Tomogra phy 10/04/2024 2:51 AM BLACKSMITH ASSISTANT Impressions 10/04/2024 8:10 AM BLACKSMITH ASSISTANT Impression: Acute depressed fractures of the right [...] Resident: Lety Cuadra Narrative 10/04/2024 8:10 AM BLACKSMITH ASSISTANT Indication: ??Patient transferred from [facility] due to Trauma. ??No initial report accompanied the patient and/or Dr. ?MAAME MAK requested an interpretation by me. Technique: ??CT scan of the facial bone done on 10/04/2024 without IV contrast. ??3 mm axial and coronal reconstructions reviewed in soft tissue and bone windows, per the local institution's scanning protocols, which may differ from the [facility] trauma protocols. Findings: ??Right [...] MD - 10/04/2024 Indication: Patient transferred from [facility] due to Trauma.No initial report accompanied the patient and/or Dr. ROXY MAKrequested an interpretation by me. Technique: CT scan of the facial bone done on 10/04/2024 without IVcontrast. 3 mm axial and coronal reconstructions reviewed in soft tissueand bone windows, per the local institution's scanning protocols, whichmay differ from the [facility] trauma protocols. Findings: Right [...] CBC WITH PLTS/AUTO DIFF (10/04/2024 2:01 AM BLACKSMITH ASSISTANT) WBC 9.96 4.00 - 10.00 k/cmm [facility] RBC 4.76 4.60 - 6.00 m/cmm [facility] Hgb 14.7 13.1 - 17.5 g/dL [facility] Hematocrit 42.0 40.0 - 51.0 % [facility] MCV 88.2 80.0 - 100.[address] [facility] MCH 30.9 25.0 - 32.[address] [facility] MCHC 35.0 31.0 - 36.0 g/dL [facility] RDW 13.8 11.5 - 14.5 % [facility] Plt 200 150 - 400 k/cmm [facility] MPV 10.0 6.5 - 12.[address] [facility] Automated Abs Neutrophil 5.05 1.70 - 6.50 k/cmm [facility] Comment:Preliminary ANC, Fin al Result to Follow Abs Immature Granulocyte 0.02 0.00 - 0.09 k/cmm [facility] Comment:The Immature Granulo cyte Absolute count contains metamyelocytes and myelocytes. Abs Neutrophil 5.05 1.70 - 6.50 k/cmm [facility] Abs Lymphocyte 3.78 0.80 - 4.00 k/cmm [facility] Abs Monocyte 0.64 0.20 - 1.00 k/cmm [facility] Abs Eosinophil 0.39 0.00 - 0.60 k/cmm [facility] Abs Basophil 0.08 0.00 - 0.20 k/cmm [facility] Blood 10/04/2024 2:01 AM BLACKSMITH ASSISTANT 10/04/2024 2:35 AM BLACKSMITH ASSISTANT Roxy Mak MD LABORATORY Edited Result - Final [facility] [address] [place] [address] * (ABNORMAL) ED CHEMISTRY LABS(NA,K,CL,CO2,GLU,CREAT,CA-IONIZED,ANION GAP) (10/04/2024 2:01 AM BLACKSMITH ASSISTANT) Chloride 106 92 - 108 mmol/L [facility] AnGap 10 8 - 16 mmol/L [facility] Glucose 93 70 - 100 mg/dL [facility] ICA, Actual 4.63 4.40 - 5.20 mg/dL [facility] ICA, pH Corrected 4.63 4.40 - 5.20 mg/dL [facility] Creatinine 1.13 0.70 - 1.25 mg/dL [facility] BICARB 28(H) 22 - 26 mEq/L [facility] eGFR (2020 CKD-EPI) 75 >=60 ml/min/1.[address] [facility] Comment: The estimated glomerular filtration rate (eGFR) was calculated using the CKD-EPI 2020 creatinine equation, which does not include race as a factor. This equation is validated in individuals 18 years of age and older, and eGFR is normalized to a body surface area of 1.73m^2. Sodium 144 135 - 148 mmol/L [facility] Potassium 2.8(AA) 3.5 - 5.3 mmol/L [facility] Comment:Critical Result Low Blood 10/04/2024 2:01 AM BLACKSMITH ASSISTANT 10/04/2024 2:21 AM BLACKSMITH ASSISTANT Narrative [facility] - 10/04/2024 2:12 PM BLACKSMITH ASSISTANT Patient Discharged 10/04/2024 07:12:09 BLACKSMITH ASSISTANT us Roxy Mak MD LABORATORY Edited Result - Final [facility] [address] [address] * MAGNESIUM (10/04/2024 2:00 AM BLACKSMITH ASSISTANT) Magnesium 2.3 1.6 - 2.6 mg/dL [facility] Blood 10/04/2024 2:00 AM BLACKSMITH ASSISTANT 10/04/2024 4:04 AM BLACKSMITH ASSISTANT us Roxy Mak MD LABORATORY Final Result Performing Organization Address [facility] Co de Phone Number [address] [address] * EXTRA TUBE - DARK GREEN (10/04/2024 2:00 AM BLACKSMITH ASSISTANT) DARK GREEN TUBE Stored [facility] Comment:Dark Green tubes (Li thium Heparin) are stored in the lab for 1 day from the collection date. Blood 10/04/2024 2:00 AM BLACKSMITH ASSISTANT 10/04/2024 2:20 AM BLACKSMITH ASSISTANT us Roxy Mak MD LABORATORY Final Result Performing Organization Address [facility] de Phone Number [address] [address] * EXTRA TUBE - BLUE (10/04/2024 2:00 AM BLACKSMITH ASSISTANT) BLUE TUBE [facility] Comment:Blue top(Sodium citr ate) tubes are kept for 3 days from the collection date. Blood 10/04/2024 2:00 AM BLACKSMITH ASSISTANT 10/04/2024 2:20 AM BLACKSMITH ASSISTANT us Roxy Mak MD LABORATORY Final Result Performing Organization Address [facility] de Phone Number [address] [address] * EXTRA TUBE - LIGHT GREEN (10/04/2024 2:00 AM BLACKSMITH ASSISTANT) LIGHT GREEN TUBE Stored [facility] Comment:Green tubes ([place] Heparin) are stored in the lab for 3 days from the collection date. Blood 10/04/2024 2:00 AM BLACKSMITH ASSISTANT 10/04/2024 2:20 AM BLACKSMITH ASSISTANT us Roxy Mak MD LABORATORY Final Result Performing Organization Address [facility] Co de Phone Number [address] [address] documented in this encounter Visit Diagnoses Diagnosis [...] 10/04/24 at 0150 Given 10/04/2024 1:52 AM BLACKSMITH ASSISTANT 10 mg oxyCODONE (ROXICODONE) tablet 10 mg 10 mg, Oral, ONE TIME, 1 dose, On 10/04/24 at 0445 Given 10/04/2024 4:47 AM BLACKSMITH ASSISTANT 10 mg potassium chloride (K-ALISSA) powder 40 mEq 40 mEq, Oral, ONE TIME, 1 dose, On 10/04/24 at 0250 Given 10/04/2024 2:52 AM BLACKSMITH ASSISTANT 40 mEq documented in this encounter Active and Recently Administered Medications Times are shown in BLACKSMITH ASSISTANT. Scheduled Medication Order 10/02/2024 10/03/2024 10/04/2024 oxyCODONE [...]
--- OUTSIDE RECORDS SUMMARY | 2024-10-08 11:48 | XMS_ITS | Clinical Summary ---
Author Organization [facility] Address [address] [place] [address] Phone Care Team Providers Care End Finder Twisting Department Name Role Phone Unavailable Primary Care Provider Unavailabl e Source Comments [employer] is fully rolled out on [facility]. Last update 04/29/09.[facility] Allergies No known active allergies Medications * Be aware that medications may not be up to date as of this document. Always verify current medications with patient. acetaminophen (TYLENOL) 500 mg oral tablet Take 1 tablet (500 mg) by mouth every 4 hours as needed for Mild Pain. 30 tablet 10/04/2024 7:05 AM PIT FURNACE OPERATOR 4 Active ibuprofen (MOTRIN;ADVIL) 600 mg oral tablet Take 1 tablet (600 mg) by mouth 4 times daily as needed for Pain. 30 tablet 10/04/2024 7:05 AM PIT FURNACE OPERATOR 4 Active cephalexin (KEFLEX) 500 mg oral capsule Take 1 capsule (500 mg) by mouth 3 times daily for 7 days. 21 capsule 4 10/11/20 24 Active oxyCODONE (ROXICODONE) 5 mg oral tablet Take 1 tablet (5 mg) by mouth every 4 hours as needed for Pain. 5 tablet 10/04/2024 7:05 AM PIT FURNACE OPERATOR 4 10/07/20 24 cephalexin (KEFLEX) 500 mg oral capsule Take 1 capsule (500 mg) by mouth 3 times daily for 7 days. 21 capsule 4 10/04/20 24 Discontinued Encounters Date Type Department Care Team Description 10/04/2024 1:01 AM PIT FURNACE OPERATOR - 10/04/2024 7:45 AM [facility] Emergency [facility] [address] [facility] [id number] [place] [address] Radiographer, Roxy R, MD Fall, initial encounter Discharge [...] on file Legal Sex Male 8:12 AM PIT FURNACE OPERATOR Gender Identity Not on file Sexual Orientation Not on file Last Filed Vital Signs Vital Sign Reading Time Taken Comments Blood Pressure 161/96 10/04/2024 6:26 AM PIT FURNACE OPERATOR Pulse 83 10/04/2024 6:26 AM PIT FURNACE OPERATOR Temperature 36.9 ??C (98.4 ??F) 10/04/2024 1:07 AM CS T Respiratory Rate 18 10/04/2024 6:26 AM PIT FURNACE OPERATOR Oxygen Saturation 94% 10/04/2024 6:26 AM PIT FURNACE OPERATOR Inhaled Oxygen Concentration - - Weight [...] Comments EXTERNAL MED REC-IMAGING 10/05/2024 7:09 AM PIT FURNACE OPERATOR EXTERNAL MED REC-IMAGING 10/05/2024 7:09 [address] P[address] F[address]NACE OPER[address] CT OUTSIDE READ HEAD/FACIAL BONES Routine 10/04/2024 2:11 AM PIT FURNACE OPERATOR CT OUTSIDE READ HEAD/FACIAL BONES Routine 10/04/2024 2:11 AM PIT FURNACE OPERATOR PC LAB CBC W/DIFF & PLT STAT 10/04/2024 2:01 AM PIT FURNACE OPERATOR PC ELECTROLYTES PANEL STAT 10/04/2024 2:01 AM PIT FURNACE OPERATOR MAGNESIUM Routine 10/04/2024 2:00 AM PIT FURNACE OPERATOR EXTRA TUBE - DARK GREEN Routine 10/04/2024 2:00 AM PIT FURNACE OPERATOR EXTRA TUBE - BLUE Routine 10/04/2024 2:0 0 AM PIT FURNACE OPERATOR TC LAB BLOOD DRAW BY VENIPUNCTURE Routine 10/04/2024 2:00 AM PIT FURNACE OPERATOR from Last 3 Months Results * EXTERNAL MED REC-IMAGING (10/05/2024 7:09 AM PIT FURNACE OPERATOR) Only the most recent of2 resultswithin the time period is included. Anatomical Region Laterality Modality Other Narrative 10/05/2024 7:09 AM PIT FURNACE OPERATOR Ordered by an unspecified provider. us Provider Unknown RAD CT BODY Final Result * CT OUTSIDE READ HEAD/FACIAL BONES (10/04/2024 2:11 AM PIT FURNACE OPERATOR) Only the most recent of2 resultswithin the time period is included. Anatomical Region Laterality Modality Skull Computed Tomogra phy 10/04/2024 3:02 AM PIT FURNACE OPERATOR Impressions 10/04/2024 8:12 AM PIT FURNACE OPERATOR Impression: 1. No acute intracranial abnormality. [...] the resident/fellow. Reading Radiologist: Wendy Baltazar Resident: Leyt Cuadra 10/04/2024 8:12 AM PIT FURNACE OPERATOR Indication: ??Patient transferred from [facility] due to Trauma. ??No initial report accompanied the patient and/or Dr. ??ROXY HARMON requested an interpretation by me. Technique: ??CT scan of the head done on 10/04/2024 without IV contrast. ??3 mm axial and coronal reconstructions reviewed in soft tissue and bone windows, per the local institution's scanning protocols, which may differ from the [facility] trauma protocols. Findings: Chronic encephalomalacia involving the [...] MD - 10/04/2024 Indication: Patient transferred from [facility] due to Trauma.No initial report accompanied the patient and/or Dr. ROXY HARMONrequested an interpretation by me. Technique: CT scan of the head done on 10/04/2024 without IV contrast. 3mm axial and coronal reconstructions reviewed in soft tissue and bonewindows, per the local institution's scanning protocols, which may differfrom the [facility] trauma protocols. Findings: Chronic encephalomalacia involving the [...] ED CHEMISTRY LABS(NA,K,CL,CO2,GLU,CREAT,CA-IONIZED,ANION GAP) (10/04/2024 2:01 AM PIT FURNACE OPERATOR) Chloride 106 92 - 108 mmol/L [facility] AnGap 10 8 - 16 mmol/L [facility] Glucose 93 70 - 100 mg/dL [facility] ICA, Actual 4.63 4.40 - 5.20 mg/dL [facility] ICA, pH Corrected 4.63 4.40 - 5.20 mg/dL [facility] Creatinine 1.13 0.70 - 1.25 mg/dL [facility] BICARB 28(H) 22 - 26 mEq/L [facility] eGFR (2020 CKD-EPI) 75 >=60 ml/min/1.7 3m2 [facility] Comment: The estimated glomerular filtration rate (eGFR) was calculated using the CKD-EPI 2020 creatinine equation, which does not include race as a factor. This equation is validated in individuals 18 years of age and older, and eGFR is normalized to a body surface area of 1.73m^2. Sodium 144 135 - 148 mmol/L [facility] Potassium 2.8(AA) 3.5 - 5.3 mmol/L [facility] Comment:Critical Result Low Blood 10/04/2024 2:01 AM PIT FURNACE OPERATOR 10/04/2024 2:21 AM PIT FURNACE OPERATOR Narrative [facility] - 10/04/2024 2:12 PM PIT FURNACE OPERATOR Patient Discharged 10/04/2024 07:12:09 PIT FURNACE OPERATOR Roxy Harmon MD LABORATORY Edited Result - Final [facility] [address] [place] [address] * CBC WITH PLTS/AUTO DIFF (10/04/2024 2:01 AM PIT FURNACE OPERATOR) Pathologist [facility] WBC 9.96 4.00 - 10.00 k/cmm [facility] RBC 4.76 4.60 - 6.00 m/cmm [facility] Hgb 14.7 13.1 - 17.5 g/dL [facility] Hematocrit 42.0 40.0 - 51.0 % [facility] MCV 88.2 80.0 - 100.0 fL [facility] MCH 30.9 25.0 - 32.0 pg [facility] MCHC 35.0 31.0 - 36.0 g/dL [facility] RDW 13.8 11.5 - 14.5 % [facility] Plt 200 150 - 400 k/cmm [facility] MPV 10.0 6.5 - 12.5 fL [facility] Automated Abs Neutrophil 5.05 1.70 - 6.50 k/cmm [facility] Comment:Preliminary ANC, Fin al Result to Follow Abs Immature Granulocyte 0.02 0.00 - 0.09 k/cmm [facility] Comment:The Immature Granulo cyte Absolute count contains metamyelocytes and myelocytes. Abs Neutrophil 5.05 1.70 - 6.50 k/cmm [facility] Abs Lymphocyte 3.78 0.80 - 4.00 k/cmm [facility] Abs Monocyte 0.64 0.20 - 1.00 k/cmm [facility] Abs Eosinophil 0.39 0.00 - 0.60 k/cmm [facility] Abs Basophil 0.08 0.00 - 0.20 k/cmm [facility] Blood 10/04/2024 2:01 AM PIT FURNACE OPERATOR 10/04/2024 2:35 AM PIT FURNACE OPERATOR Roxy Harmon MD LABORATORY Edited Result - Final [facility] [address] [place] [address] * EXTRA TUBE - DARK GREEN (10/04/2024 2:00 AM PIT FURNACE OPERATOR) DARK GREEN TUBE Stored [facility] Comment:Dark Green tubes (Li thium Heparin) are stored in the lab for 1 day from the collection date. Blood 10/04/2024 2:00 AM PIT FURNACE OPERATOR 10/04/2024 2:20 AM PIT FURNACE OPERATOR us Roxy Harmon MD LABORATORY Final Result Performing Organization Address [facility] de Phone Number [facility] [address] [address] * EXTRA TUBE - LIGHT GREEN (10/04/2024 2:00 AM PIT FURNACE OPERATOR) LIGHT GREEN TUBE Stored [facility] Comment:Green tubes ([place] Heparin) are stored in the lab for 3 days from the collection date. Blood 10/04/2024 2:00 AM PIT FURNACE OPERATOR 10/04/2024 2:20 AM PIT FURNACE OPERATOR us Roxy Harmon MD LABORATORY Final Result Performing Organization Address [facility] de Phone Number [facility] [address] [address] * EXTRA TUBE - BLUE (10/04/2024 2:00 AM PIT FURNACE OPERATOR) BLUE TUBE [facility] Comment:Blue top(Sodium citr ate) tubes are kept for 3 days from the collection date. Blood 10/04/2024 2:00 AM PIT FURNACE OPERATOR 10/04/2024 2:20 AM PIT FURNACE OPERATOR us Roxy Harmon MD LABORATORY Final Result Performing Organization Address [facility] de Phone Number [facility] [address] [address] * MAGNESIUM (10/04/2024 2:00 AM PIT FURNACE OPERATOR) Magnesium 2.3 1.6 - 2.6 mg/dL [facility] Blood 10/04/2024 2:00 AM PIT FURNACE OPERATOR 10/04/2024 4:04 AM PIT FURNACE OPERATOR us Roxy Harmon MD LABORATORY Final Result [facility] [address] [place] [address] from Last 3 Months
--- OUTSIDE RECORDS SUMMARY | 2024-10-08 11:48 | XMS_ITS | Encounter Summary ---
Author Organization [facility] Address [address] [place] [address] Phone Care Team Providers Care Anatomic Pathology Manager Name Role Phone Unavailable Primary Care Provider Unavailabl e Encounter Details Date Type Department Care Team (Latest Contact Info) Description 10/04/2024 Travel Social History Tobacco Use Types Packs/Day Years Used Date Smoking Tobacco: Never Assessed Sex and Gender Information Value Date Recorded Sex Assigned at Not on file Legal Sex Male 8:12 AM LICENSING SPECIALIST Gender Identity Not on file Sexual Orientation Not on file documented as of this encounter Plan of Treatment Not on file documented as of this encounter Visit Diagnoses Not on filedocumented in this encounter
--- OUTSIDE RECORDS SUMMARY | 2024-10-08 11:48 | XMS_ITS | Encounter Summary ---
Author Organization [facility] Address [address] [place] [address] Phone Care Team Providers Care Terminal Makeup Operator Name Role Phone Unavailable Primary Care Provider Unavailabl e Encounter Details Date Type Department Care Team (Late st Contact Info) Description 10/04/2024 Documentation Only Unspecified Department [place] Unknown, Provider Social History Tobacco Use Types Packs/Day Years Used Date Smoking Tobacco: Never Assessed Sex and Gender Information Value Date Recorded Sex Assigned at Not on file Legal Sex Male 8:12 AM PERSONAL SERVICE REPRESENTATIVE Gender Identity Not on file Sexual Orientation Not on file documented as of this encounter Plan of Treatment Not on file documented as of this encounter Procedures Procedure Name Priority Date/Time Associated Diagnosis Comments EXTERNAL MED REC-IMAGING 10/05/2024 7:09 AM PERSONAL SERVICE REPRESENTATIVE documented in this encounter Results * EXTERNAL MED REC-IMAGING (10/05/2024 7:09 AM PERSONAL SERVICE REPRESENTATIVE) Anatomical Region Laterality Modality Other Narrative 10/05/2024 7:09 AM PERSONAL SERVICE REPRESENTATIVE Ordered by an unspecified provider. us Provider Unknown RAD CT BODY Final Result documented in this encounter Visit Diagnoses Not on filedocumented in this encounter
--- OUTSIDE RECORDS SUMMARY | 2024-10-08 11:48 | XMS_ITS | Encounter Summary ---
Author Organization [facility] Address [address] [place] [address] Phone Care Team Providers Care Spar Finisher Name Role Phone Unavailable Primary Care Provider Unavailabl e Encounter Details Date Type Department Care Team (Late st Contact Info) Description 10/04/2024 Documentation Only Unspecified Department [place] Unknown, Provider Social History Tobacco Use Types Packs/Day Years Used Date Smoking Tobacco: Never Assessed Sex and Gender Information Value Date Recorded Sex Assigned at Not on file Legal Sex Male 8:12 AM MINE UTILITY OPERATOR Gender Identity Not on file Sexual Orientation Not on file documented as of this encounter Plan of Treatment Not on file documented as of this encounter Procedures Procedure Name Priority Date/Time Associated Diagnosis Comments EXTERNAL MED REC-IMAGING 10/05/2024 7:09 AM MINE UTILITY OPERATOR documented in this encounter Results * EXTERNAL MED REC-IMAGING (10/05/2024 7:09 AM MINE UTILITY OPERATOR) Anatomical Region Laterality Modality Other Narrative 10/05/2024 7:09 AM MINE UTILITY OPERATOR Ordered by an unspecified provider. us Provider Unknown RAD CT BODY Final Result documented in this encounter Visit Diagnoses Not on filedocumented in this encounter
[2024-10-08] MEDS: SODIUM CHLORIDE 0.9 % (FLUSH) 10 ML SYRINGE IVF (12:30)
[2024-10-08 12:37] LABS: Potassium* 3.7 mmol/L (3.6-5.1)
--- NOTE | 2024-10-08 13:24 | SUR.PREOP ---
TIME?OUT:?1324 PT/RN/MDA?VERIFICATION?OF?SURGICAL?SITE,?PROCEDURE,?AND?CONSENT OBTAINED?PRIOR?TO?INVASIVE?PROCEDURE.
[2024-10-08] MEDS: MIDAZOLAM HCL 1 MG/ML inj IVP (13:26)
[2024-10-08] MEDS: fentaNYL 100 MCG/2 ML inj IVP (13:26)
--- NOTE | 2024-10-08 13:38 | P.NB_ITS ---
Nerve Block Nerve Block Time Seen by Provider: 13:28 Date Seen: 10/08/24 Type of block requested by surgeon for post-operative analgesia: axillary Side: right Time out performed: Yes Verification of patient name: Yes Verification of date of : Yes Site marking: site marked Name of person performing procedure: Kit Continuous monitoring Was continuous monitoring of O2 sat, B/P, licensed land surveyor, recorded every 15 minutes?: Yes Procedure Checklist: sterile prep, needles and gloves Ultrasound guided. Images saved: Yes Medications given in 5ml increments after negative aspiration: Ropivicaine %: 0.5 mL: 30 Needle gauge: 22 Patient tolerated procedure well: Yes Additional comments: Needle noted adjacent to nerve Block Charges Block Charge (with Pro Fee): Brachial Plexus Use of Ultrasound Machine for Block: Yes- US Guidance/pain block
--- NOTE | 2024-10-08 13:38 | W.ANESCHARGE ---
Anesthesia Charges Start Date/Time Anesthesia Start Date: 10/08/24 Anesthesia Start Time: 13:56 Stop Date/Time Anesthesia Stop Date: 10/08/24 Anesthesia Stop Time: 15:03
--- NOTE | 2024-10-08 14:00 | CRLHL7_ITS ---
For Patients: As a result of the Century Cures Act, medical imaging exams and procedure reports are released immediately into your electronic medical record. You may view this report before your referring provider. If you have questions, please contact your health care provider. HISTORY: Internal fixation of the right wrist. TECHNIQUE: Fluoroscopy provided intraoperatively for the Orthopedic surgery service. 4 spot films acquired. 0.45 minutes fluoroscopy time utilized by the surgery service. COMPARISON: 10/03/2024 FINDINGS: Spot films demonstrate volar plate and screw fixation distal radius. Placed hardware appears intact and appropriately seated. Decreased fracture angulation as compared to the preoperative radiographs. No change in small fracture of the ulnar styloid. IMPRESSION: 1. Plate and screw fixation of distal radius. Hardware intact and appropriately seated. Decreased fracture angulation as compared to the preoperative radiographs. Dictated by Angelo Rico MD @ 10/10/2024 4:12:25 AM (Electronically Signed)
[2024-10-08] MEDS: CEFAZOLIN 2 GM INJ IVP (14:01)
--- NOTE | 2024-10-08 15:03 | W.ANESCHARGE ---
Anesthesia Charges Start Date/Time Anesthesia Start Date: 10/08/24 Anesthesia Start Time: 13:56 Stop Date/Time Anesthesia Stop Date: 10/08/24 Anesthesia Stop Time: 15:03
--- NOTE | 2024-10-12 08:19 | P.ORPRC_ITS ---
Procedure Note Date of procedure: 10/08/24 Procedure: PREOPERATIVE DIAGNOSIS: Angulated 3+ part intra-articular right upper extremity distal radius fracture POSTOPERATIVE DIAGNOSIS: Angulated 3+ part intra-articular right upper extremity distal radius fracture NAME OF OPERATION: Open reduction internal fixation SURGEON: Teddy Marks MD HEDIS MANAGER: DIO Good ANESTHESIA: Supraclavicular block plus monitored anesthesia care ESTIMATED BLOOD LOSS: 0 mL COMPLICATIONS: None SPECIMENS: None DRAINS: None PREOPERATIVE ANTIBIOTICS: Ancef 2 grams INDICATIONS: The patient is a 59-year-old who fell landing on their upper extremity sustaining the above injury. Given the amount of angulation, reduction and plate fixation were recommended. The risks, benefits and expected outcomes were discussed in detail. These included but were not limited to: Infection, bleeding, injury to blood vessel or nerve, venous thromboembolism. All questions were answered to their satisfaction. Use of an medical assistant internal medicine was necessary throughout the case for patient positioning a nd safety, maintenance of the reduction, surgical site dressing and splint application. PROCEDURE: A supraclavicular block was placed by Anesthesia. The patient was placed supine on the operating room table. IV sedation was administered. The reduction was obtained with longitudinal traction and volar force on the distal fragment, held by the medical assistant internal medicine. The image intensifier was used to confirm an excellent reduction. The extremity was prepped and draped in the usual sterile fashion. The limb was exsanguinated with the Woody bandage. The pneumatic tourniquet was inflated to 250 mm of mercury. A longitudinal incision was made over the flexor carpi radialis. Subcutaneous dissection was taken sharply through the FCR sheath. The FCR was retracted radially. Sharp dissection was carried through the floor of the FCR sheath. The flexor pollicis longus was retracted ulnarly. Sharp dissection was carried through the radial border of the pronator quadratus which was elevated ulnarly, exposing the fracture site. The medical assistant internal medicine held retractors to expose the fracture. The volar cortex of the fracture is anatomically aligned. We placed a [employer] standard, 3 hole volar locking plate over the volar cortex. It was provisionally held with a BB tack x 2, while the medical assistant internal medicine held the reduction. Its placement was confirmed with the image intensifier. We placed a cortical screw in the slot. We placed a locking screw in the shaft. We then filled the distal screw holes with smooth locking pegs using the image intensifier to confirm their extra-articular placement. Finally, a 2nd locking screw was placed in the shaft fragment. This construct was imaged in multiple views and was felt to be well placed with an anatomic reduction and well placed implants. The wound was irrigated normal saline. Subcutaneous tissues were reapproximated with a 2-0 Vicryl, skin with a running 3-0 Monocryl in a subcuticular fashion. Glue was used to seal the skin. A dry dressing and short-arm dorsal volar splint was applied. These steps were all completed by the medical assistant internal medicine. The tourniquet was released, sponge and needle counts were correct x2. The patient tolerated the procedure well, there were no apparent complications. They were taken to the postanesthesia care unit in satisfactory condition. PLAN: The patient will be discharged home. They will work on elevation of the hand and active range of motion of the fingers. They will follow up next week in the office for a wound check with a PA, oblique, lateral and fossa lateral view of the wrist out of the splint prior to being seen in preparation for early active motion with a Velcro wrist brace.
== END 2024-10-08 16:00 | disposition home or self-care (01) ==
LOC: OR 11:45
PROVIDERS: Visit Provider Orthopaedic Surgery
PROC: (CPT 25575; principal; 2024-10-08 14:00)
DX: S52.571A Other intraarticular fracture of lower end of right radius, initial encounter for closed fracture (principal); G89.18 Other acute postprocedural pain; E87.6 Hypokalemia; I12.9 Hypertensive chronic kidney disease with stage 1 through stage 4 chronic kidney disease, or unspecified chronic kidney disease; N18.9 Chronic kidney disease, unspecified; I25.10 Atherosclerotic heart disease of native coronary artery without angina pectoris; F17.210 Nicotine dependence, cigarettes, uncomplicated; I69.351 Hemiplegia and hemiparesis following cerebral infarction affecting right dominant side; F11.21 Opioid dependence, in remission; Z79.891 Long term (current) use of opiate analgesic
CPT/HCPCS: 25609; 01830; 36415; 64415; 73110; 76000; 76942; 84132; A4580; C1713; J0690; J2250; J2704; J2795; J3010; J3490

== ENCOUNTER 2024-12-04 16:15 | Outpatient (RCR) | payer MEDICARE, SELFPAY ==
--- NOTE | 2024-10-16 14:18 | OT.OPOE ---
OT Outpatient Ortho Eval OT Outpatient Ortho Eval* Start: 10/16/24 07:22 Freq: Status: Active Protocol: Document 10/16/24 07:22 AMB (Rec: 10/16/24 14:15 AMB [id number]) E-signed By Tiki Denis, OTR/L, CLT, STONE DRESSER OT OP Ortho Eval Details Complexity Complexity Low Insurance Information Insurance Information [employer] Insurance Information Comments MC cert due 01/14/25 Outpatient History/Precautions Current Condition/Medical Diagnosis Referring Provider Dr Marks Medical Diagnoses Z98.[address] Treatment Diagnosis M25.631 Stiffness RUE wrist R53.1 Weakness RUE hand, wrist and forearm Other Conditions PMH (copied from ortho chart): Active Problems (Updated 10/09 @ 09:52 by Val Santiago) History of surgery on right wrist (Acute 10/08/24) ORIF 10/08/2024, Dr. 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 Stopped ONEIDA inhibitor 12/27/23. Exclude ONEIDA and ARBs per [facility] records. I10 - Essential (primary) hypertension (ICD-10) Tobacco abuse (Chronic) Smokes currently 48 pack year Z72.0 - Tobacco use (ICD-10) History of narcotic addiction (Acute) Percocet. Currently on Suboxone as of 09/2024. F11.21 - Opioid dependence, in remission (ICD-10) Ischemic stroke (Chronic 2019) Residual right spastic hemiparesis Arm>leg. Memory problems. I63.9 - Cerebral infarction, unspecified (ICD-10) GERD (gastroesophageal reflux disease) (Chronic) with hiatal hernia. Esophageal thickening seen incidentally on 12/27/[address] [facility] [address] Consider f/u EGD. EGD possibly done at [facility]. K21.9 - Gastro-esophageal reflux disease without esophagitis (ICD-10) Narcolepsy and cataplexy ( Chronic) and chronic insomnia. uses Dong Harris G47.411 - Narcolepsy with cataplexy (ICD-10) Depression with anxiety ( Chronic) F41.8 - Other specified anxiety disorders (ICD-10) ADHD (Chronic) F90.9 - Attention-deficit hyperactivity disorder, unspecified type (ICD-10) Chronic kidney disease ( Chronic) N18.9 - Chronic kidney disease , unspecified (ICD-10) History of fracture due to fall (Acute) 10/03/24. R wrist (ORIF sched for 10/08/24). Zygomatic arch, maxillary sinus [place] [facility] [place] Z87.81 - Personal history of ( healed) traumatic fracture ( ICD-10) Clicking neck (Chronic) Cervical DDD. Saw Dr. Lopez . M53.82 - Other specified dorsopathies, cervical region (ICD-10) Medical History (Updated 10/09 @ 09:52 by Val Santiago) (HFpEF) heart failure with preserved ejection fraction I50.30 - Unspecified diastolic (congestive) heart failure ( ICD-10) CAD (coronary artery disease) I25.10 - Atherosclerotic heart disease of [place] coronary artery without angina pectoris (ICD-10) Crohn's disease K50.90 - Crohn's disease, unspecified, without complications (ICD-10) History of vitamin D deficiency Z86.39 - Personal history of other endocrine, nutritional and metabolic disease (ICD-10) Coronary artery disease with stable angina pectoris I25.118 - Atherosclerotic heart disease of [place] coronary artery with other forms of angina pectoris (ICD- 10) History of alcohol abuse F10.11 - Alcohol abuse, in remission (ICD-10) History of Clostridioides difficile infection Z86.19 - Personal history of other infectious and parasitic diseases (ICD-10) Ischemic hepatitis K72.00 - Acute and subacute hepatic failure without coma ( ICD-10) Chronic kidney disease N18.9 - Chronic kidney disease , unspecified (ICD-10) Chronic back pain M54.9 - Dorsalgia, unspecified (ICD-10) G89.29 - Other chronic pain ( ICD-10) Hypertension I10 - Essential (primary) hypertension (ICD-10) NOEIDA inhibitor intolerance Z78.9 - Other specified health status (ICD-10) Tobacco abuse Z72.0 - Tobacco use (ICD-10) History of narcotic addiction F11.21 - Opioid dependence, in remission (ICD-10) Clicking neck M53.82 - Other specified dorsopathies, cervical region (ICD-10) History of fracture due to fall Z87.81 - Personal history of ( healed) traumatic fracture ( ICD-10) ADHD F90.9 - Attention-deficit hyperactivity disorder, unspecified type (ICD-10) Depression with anxiety F41.8 - Other specified anxiety disorders (ICD-10) Narcolepsy and cataplexy G47.411 - Narcolepsy with cataplexy (ICD-10) GERD (gastroesophageal reflux disease) K21.9 - Gastro-esophageal reflux disease without esophagitis (ICD-10) Ischemic stroke (2019) I63.9 - Cerebral infarction, unspecified (ICD-10) Surgical History (Updated @ 11:06 by Theresa Almodovar) History of surgery on right wrist (10/08/24) Z98.890 - Other specified postprocedural states (ICD-10) History of wisdom tooth extraction K08.409 - Partial loss of teeth, unspecified cause, unspecified class (ICD-10) History of open reduction and internal fixation (ORIF) procedure (1998) Z98.890 - Other specified postprocedural states (ICD-10) History of nasal septoplasty ( ~2012) Z98.890 - Other specified postprocedural states (ICD-10) Medical/Functional History Medical History Reviewed Yes Social History Employment Status Unemployed Hobbies [employer] Ortho Subjective Subjective Subjective Pt states he's been doing ok since surgery, using Tylenol and Ibuprofen for pain management, hasn't been using ice. Pt states he got his surgical dressing off on Saturday. Pt states he is trying to get a job but has narcolepsy and he cannot drive so this makes it difficult. Pt will also be losing his current living arrangement the end of October so he has a lot of stress right now. Goniometric Comments Goniometric Comments Goniometric Comments 10/16/24 AROM of BUE is WNL throughout with the exception of the RUE forearm, wrist and hand (pt does have a contracture of his RUE SF since his stroke a couple years ago). AROM of the RUE forearm: Pro/Sup: AROM of the RUE wrist: Flex/Ext: UD/RD: 18/ AROM of the RUE hand: Composite fist: Full Opposition: Tip of SF OT Problems Problems Problems Decreased Strength,Decreased Range of Motion,Decreased Dexterity,Pain,Decreased Coordination,Sensory Sensitivity,Lifting,Gripping, Pinching Other Problems Writing,Opening Containers, Dressing,Computer,Fasteners, Sleeping Patient Potential Good Assessment Assessment Assessment Pt is a 59yo referred to OT to address pain, swelling, weakness and limited AROM of the RUE secondary to volar angulated 3 part intra- articular fx of his DR s/p MISAEL. Pt is limited in his ability to complete any ADL or IADL that requires gripping, pinching, or lifting with his RUE including housework, getting dressed, self cares and cooking. Pt will benefit from skilled OT intervention to address impairments and restore full, pain-free use of the RUE. Occupational Therapy Treatment Plan - OP Potential Rehabilitation Potential Good Set Goals Goals Set with Patient Yes Goals Goals 1. Pt will be independent and compliant with HEP in order to resume full, pain-free use of the involved UE. 3 weeks 2. Pt will demonstrate full, pain-free AROM of the involved UE in order to improve ability to grasp and hold. 6 weeks 3. Pt will demonstrate pain- free laundry manager and pinch strength comparable to the uninvolved side in order to improve functional grasp, hold, reach, and lifting ability needed to complete self-care, leisure tasks, and work activities. 8 weeks. Target Date 12/27/24 Treatment Plan Treatment Plan Evaluation,Edema Control, Manual Therapy,Splinting, Ultrasound,Wound Care/Scar Management,Therapeutic Exercise,Therapeutic Activities,Self Care/Home Management,Education Expected Frequency 1-2x Week Expected Duration 8-10 Weeks Home Program Home Program Home Program Initiated Home Program Specifics 10/16/24 Provided training and practice in HEP for AROM of the RUE fingers, thumb, wrist and forearm as well as non- resisted mm pumps for edema reduction. Following demo, pt is able to complete exs with minimal cues. Pt was provided written instructions for use at home. Certification Certification Statement I Certify That: Therapy Services Provided, Therapy Plan Established, Therapy Plan Reviewed Certification Information Clinic ID # [id number] Initial Certification Date 10/16/24 Recertification Due Date 01/14/25 Provider Signature Required Yes Provider Signature Shows Agreement With POC & Medical Necessity Physician NPI Number Write NPI# Here Physician Comment/Change Comment or Changes Physician Signature & Date Requested Please Sign/Date Here
== END 2025-04-03 23:59 | disposition home or self-care (01) ==
PROVIDERS: Visit Provider Orthopaedic Surgery
DX: Z48.89 Encounter for other specified surgical aftercare (principal); Z51.89 Encounter for other specified aftercare
CPT/HCPCS: 97110; 97140; 97165; X5282

== ENCOUNTER 2025-06-09 15:25 | Outpatient (CLI) | payer MEDICARE, SELFPAY | END 2025-06-09 15:26 | disposition home or self-care (01) | LOC: NFLDREF 15:26 | PROVIDERS: PCP Internal Medicine; Visit Provider Internal Medicine | DX: I50.30 Unspecified diastolic (congestive) heart failure (principal) | CPT/HCPCS: 80053 ==

== ENCOUNTER 2025-06-18 10:25 | Outpatient (CLI) | payer MEDICARE, SELFPAY ==
--- NOTE | 2025-06-18 10:45 | CRLHL7_ITS ---
For Patients: As a result of the Cures Act, medical imaging exams and procedure reports are released immediately into your electronic medical record. You may view this report before your referring provider. If you have questions, please contact your health care provider. Indication: Abdominal distension, assess for ascites. Technique: Real-time grayscale images were obtained in all 4 quadrants with static images saved for review. Comparison: None Findings/Impression: Imaging in all 4 quadrants of the abdomen shows no evidence of ascites. Dictated by David Bernard MD @ 06/18/2025 12:35:53 PM (Electronically Signed)
== END 2025-06-18 10:26 | disposition home or self-care (01) ==
LOC: US 10:25
PROVIDERS: PCP Internal Medicine; Visit Provider Internal Medicine
DX: R14.0 Abdominal distension (gaseous) (principal)
CPT/HCPCS: 76705

== ENCOUNTER 2025-07-02 08:19 | Outpatient (CLI) | payer MEDICARE, SELFPAY | END 2025-07-02 08:20 | disposition home or self-care (01) | LOC: NFLDREF 07-07 12:58 | PROVIDERS: PCP Internal Medicine; Referring Provider Internal Medicine; Visit Provider Internal Medicine | DX: E78.5 Hyperlipidemia, unspecified (principal); I10 Essential (primary) hypertension; Z12.5 Encounter for screening for malignant neoplasm of prostate | CPT/HCPCS: 80053; 80061; G0103 ==

== ENCOUNTER 2025-07-28 14:43 | Outpatient (CLI) | payer MEDICARE, SELFPAY | END 2025-07-28 14:44 | disposition home or self-care (01) | LOC: RAD 14:44 | PROVIDERS: PCP Internal Medicine; Visit Provider Internal Medicine | DX: I50.30 Unspecified diastolic (congestive) heart failure (principal) | CPT/HCPCS: 93306 ==